=== PATIENT | female | born 1950 | race Caucasian/White ===

== ENCOUNTER 2016-11-29 08:51 | Emergency (ER) | payer OTHER, MEDICARE ==
--- NOTE | 2016-11-29 09:06 | CPEKG ---
Heart Rate: 110 RR Interval: 545 P-R Interval: 148 QRSD Interval: 84 QT Interval: 312 QTC Interval: 423 P [place]: 65 QRS [place]: 35 T Wave [place]: 74 EKG Severity - ABNORMAL ECG - EKG Impression: SINUS TACHYCARDIA EKG Impression: LEFT ATRIAL ABNORMALITY EKG Impression: ST ELEVATION, CONSIDER ANTERIOR INJURY Electronically Signed By: Nanci Willett 29-Nov-2016 15:17:40
[2016-11-29] MEDS ORDERED: ASPIRIN 81 MG CHEWABLE TAB PO ONE (09:07)
[2016-11-29 09:17] LABS: % IMMATURE GRANULYOCYTES 0.4 % (0.0-1.1); ABSOLUTE IMMATURE GRANULOCYTES 0.05 10^3/uL (0.00-0.10); ADD DIFF? NO; ADD MORPH? NO; ADD SCAN? NO; ATYPICAL LYMPHOCYTE FLAG 0 (0-99); FRAGMENT RBC FLAG 0 (0-99); HEMATOCRIT 43.3 % (38.0-47.0); HEMOGLOBIN 15.4 g/dL (12.6-16.3); LEFT SHIFT FLG 10 (0-99); LIPEMIA HEMOLYSIS FLAG 90 (0-99); MEAN CELL HEMOGLOBIN 33.3 pg (27.9-34.1); MEAN CELL HEMOGLOBIN CONCENTR. 35.6 g/dL (32.4-36.7); MEAN CELL VOLUME 93.5 fL (81.5-99.8); MEAN PLATELET VOLUME 10.6 fL (8.7-11.7); PLATELET CLUMPS FLAG 0 (0-99); PLATELET COUNT 234 10^3/uL (150-400); RED BLOOD CELL COUNT 4.63 10^6/uL (4.18-5.33); RED CELL DISTRIBUTION WIDTH 12.1 % (11.5-15.2)
[2016-11-29 09:28] LABS: ANION GAP 15 mEq/L (8-16); CALCIUM 9.9 mg/dL (8.5-10.4); CARBON DIOXIDE 25 mEq/l (22-31); CHLORIDE 103 mEq/L (97-110); CREATININE 0.6 mg/dL (0.6-1.0); GLOMERULAR FILTRATION RATE > 60; GLUCOSE 184 mg/dL (70-100); POTASSIUM 3.8 mEq/L (3.5-5.2); SODIUM 143 mEq/L (134-144)
[2016-11-29 09:39] LABS: TROPONIN I < 0.012 ng/mL (0-0.034)
--- NOTE | 2016-11-29 10:34 | DX ---
Upright PA and Lateral Views of the Chest at 9:26 a.m. Clinical History: 66-year-old female in the ED with chest pain today. Comparison Study: None. Findings: Telemetry monitoring lead lines are noted. The cardiac and mediastinal silhouette is normal . There is no focal infiltrate, atelectasis pleural effusion, peripheral interstitial edema, or pneum othorax. There is a stereotactically-deployed clip in the lateral aspect of the left breast. There is minimal apical pleural thickening. The trachea is midline. There are some degenerative features of t he spine. Impression: No acute abnormality.
--- NOTE | 2016-11-29 11:34 | CPEKG ---
Heart Rate: 94 RR Interval: 638 P-R Interval: 156 QRSD Interval: 82 QT Interval: 336 QTC Interval: 421 P [place]: 59 QRS [place]: 29 T Wave [place]: 63 EKG Severity - ABNORMAL ECG - EKG Impression: SINUS RHYTHM EKG Impression: ST ELEVATION SUGGESTS PERICARDITIS Electronically Signed By: Nanci Willett 29-Nov-2016 15:17:27
[2016-11-29 12:20] VITALS: RESP 15
--- NOTE | 2016-11-29 13:11 | EDPHY ---
H & P Stated Complaint: Chest pain Time Seen by Provider: 11/29/16 09:06 HPI/ROS: CHIEF COMPLAINT: Chest pain HISTORY OF PRESENT ILLNESS: This is a healthy 66-year-old female who arrives by pre visit private vehicle concerned about chest discomfort that has been present for over 8 hours. It is in the mid substernal region, sometimes extending into the left shoulder and lower neck. It is a crampy sensation. The pain is worsened with deep breathing when lying flat. She has not taken any medication for this pain. She denies any recent trauma. No recent travel or immobilization, no calf pain or swelling. She does not take hormone medication.She has not had fever, cough, or shortness of breath. No personal or family history of cardiac disease or VTE. REVIEW OF SYSTEMS: A ten point review of systems was performed and is negative with the exception of the items mentioned in the HPI. Source: Patient Exam Limitations: No limitations - Personal History Current Tetanus/Diphtheria Vaccine: Yes - Medical/Surgical History Other PMH: Hypothyroidism - Social History Smoking Status: Never smoked Drug Use: None Additional Social History: She works in [employer] by a [employer]. - Physical Exam Exam: General Appearance: Alert. Vital signs reviewed. Initial vital signs were a blood pressure of 160/100, heart rate 121, respiratory rate 17, temperature 37.1 and room air pulse ox of 96%. Eyes: Pupils equal and round, no conjunctival injection, no discharge. Anicteric. ENT, Mouth: Mucous membranes are moist, no oropharyngeal erythema or edema. Neck: No lymphadenopathy, supple. No jugular venous distension. Respiratory: Lungs are clear to auscultation; no wheezes, rales, or rhonchi. Cardiovascular: Tachycardic; no murmur, rub, or gallop. Gastrointestinal: Abdomen is soft and nontender, no masses or organomegaly, bowel sounds normal. Skin: Warm and dry, no rashes on exposed skin, normal color. Back: Nontender to palpation over the thoracolumbar spine. No CVAT. Extremities: No lower extremity edema, no calf tenderness or swelling. Neurological: Alert and oriented. Moving all four extremities easily and equally. Psychiatric: Normal affect. Constitutional: Initial Vital Signs Temperature (C) 37.1 C 11/29/16 09:11 Heart Rate 112 H 11/29/16 09:11 Respiratory Rate 17 11/29/16 09:11 Blood Pressure 164/100 H 11/29/16 09:11 O2 Sat (%) 96 11/29/16 09:11 O2 Delivery Mode Room Air Allergies/Adverse Reactions: Penicillins Allergy (Unverified 11/09/15 16:06) Home Medications: Medication Instructions Recorded Levothyroxine 11/29/16 Medical Decision Making - Diagnostics EKG Interpretation: 12 lead EKG is interpreted in Trace master View by emergency department physician. 2nd EKG was obtained. 12 lead EKG is interpreted in Trace master View by emergency department physician. Shows ST elevation consistent with pericarditis. Imaging: Two-view chest x-ray reviewed by me in PACs. No acute pulmonary disease. ED Course/Re-evaluation: 66-year-old with no cardiac risk factors who presents with chest pain that is positional. She has had no recent illnesses. Initial EKG did not show acute ischemic changes. She was noted to be tachycardic and hypertensive on arrival. CBC, chemistries, troponin, EKG and chest x-ray all negative/normal. Her tachycardia subsided. She continued with chest discomfort that was worse when she was lying flat. D-dimer was obtained and normal. TSH was normal. She underwent serial evaluations during her stay in the ED. A 2nd troponin was obtained 2 and 0.5 hours after the 1st and over 10 hours from the onset of her pain. This troponin was normal. A 2nd EKG showed diffuse ST wave elevation consistent with pericarditis. On serial cardiac examinations no rub was heard. I think that this is pericarditis and I am recommending anti-inflammatory medication. We reviewed danger signs that should prompt her to seek immediate medical attention. I recommend close follow up with her PCP. Differential Diagnosis: Chest pain including but not limited to myocardial ischemia, pulmonary embolus, chest wall pain, pleural inflammation, pericarditis, and pulmonary infectious causes. - Data Points Laboratory Results: Laboratory Results 11/29/16 09:05 11/29/16 09:05 Medications Given: Discontinued Medications Aspirin (Aspirin) 324 mg PO EDNOW ONE Stop: 11/29/16 09:08 Last Admin: 11/29/16 09:14 Dose: 324 mg Departure - Departure Disposition: Home, Routine, Self-Care Clinical Impression: Pericarditis Qualifiers: Pericarditis type: unspecified type Chronicity: acute Qualifier Code: (I30.9) Acute pericarditis, unspecified Condition: Good Instructions: Acute Pericarditis (ED) Additional Instructions: Take ibuprofen 600 mg every 6-8 hours. Take this on a regular basis. You should follow up with Dr. Saeed later this week. Call her office today to schedule an appointment. Let the office staff know that you were seen in the emergency department and that you have been diagnosed with pericarditis. I am giving you the name of the pictures editor on duty, Dr. Rashid Henderson. If Dr. Saeed would like you to see a pictures editor you can call his office. You can see any of his partners with this problem. You should return immediately if you have severe persistent chest pain, shortness of breath, feels as if you might faint, or develop fever. Referrals: Nava Saeed MD [Primary Care Provider] - As per Instructions Rashid Henderson MD [Medical Doctor] - As per Instructions
[2016-11-29 13:38] VITALS: BP 127/84; PULSE 96; TEMP 98.2; O2SAT 95
== END 2016-11-29 13:30 | disposition home or self-care (01) ==
DX: I30.9 Acute pericarditis, unspecified (principal)

== ENCOUNTER → 2016-12-06 | Outpatient (CLI) | payer OTHER, MEDICARE ==
[~2016-12-06] MED LIST: IOPAMIDOL (ISOVUE-300) 50 ML VIAL IV ONE
--- NOTE | 2016-12-06 17:01 | CT ---
CT abdomen and pelvis multiphasic. CLINICAL INDICATION: Elevated liver enzymes. COMPARISON: Chest x-ray November 29, 2016. TECHNIQUE: 1.25 mm contiguous helical axial scanning from thoracic inlet through the pubic symphysis after the uneventful administration of oral and IV contrast. The patient received 90 mL of Isovue-300 . Imaging was performed in the arterial, portal venous and delayed phases per the liver protocol. Dos e reduction measures were utilized. FINDINGS: The lung bases are clear. The liver is heterogeneous and mildly low dense with biliary duct al dilatation and gallbladder dilation. It tapers down to a mass in the head of the pancreas. The watson creatic duct is cut off at this level. The mass measures 2.9 x 1.7 x 2.0 cm. The superior mesenteric artery appears clear of this mass. The superior mesenteric vein appears clear. It may be near the vei n on the coronal examination, however, the vein does appear to be clear of invasion. The kidneys and adrenals are unremarkable. Spleen is normal. The splenic vein is patent. Small bowel and colon are unremarkable. Bones exhibit degenerative changes. No lytic or blastic lesions. IMPRESSION: Low-density mass in the head of the pancreas with a duct cut off sign most consistent wit h pancreatic adenocarcinoma. No definite spread beyond the pancreas. Biliary obstruction is also pres ent. Further evaluation with endoscopic US is recommended. Critical results relayed by Dr. Larios to Dr. Saeed today 1540 hours.
== END ==
LOC: FIMAGING 13:54
PROVIDERS: ATTEND Internal Medicine
DX: K86.9 Disease of pancreas, unspecified (principal)
CPT/HCPCS: 74177; Q9967

== ENCOUNTER 2017-07-16 19:35 | Inpatient (IN) | payer OTHER, MEDICARE ==
[2017-07-16] MEDS ORDERED: ACETAMINOPHEN 500 MG TAB PO ONE (20:18)
[2017-07-16] MEDS ORDERED: NS 1,000 ML IV ONE (20:24)
--- NOTE | 2017-07-16 20:28 | EDPHY ---
H & P Time Seen by Provider: 07/16/17 20:18 HPI/ROS: CHIEF COMPLAINT: "I feel crummy" HISTORY OF PRESENT ILLNESS: The patient is a 66-year-old female with a history of pancreatic cancer recently on chemotherapy who presents emergency department with poor appetite and increased nausea. Patient states she has any new food essentially for 3 days due to her poor appetite nausea. She vomited yesterday but no episodes of emesis today. She has had no diarrhea. She took her temperature at home and it was 102. She denies chest pain, cough or shortness of breath. No new abdominal pain. No diarrhea. No skin rash or lesions. REVIEW OF SYSTEMS: My complete review of systems is negative except as mentioned in the HPI. Past Medical/Surgical History: Hypothyroidism, pancreatic cancer Past surgical history: Includes fibroid surgery, stent placement Social history: The patient does not smoke. Smoking Status: Never smoked Physical Exam: 39.4, 126/67, 115, 20, 93% on room air GENERAL: No acute distress, alert. HEENT: Eyes normal to inspection, normal pharynx, no signs of dehydration. NECK: No thyromegaly, no lymphadenopathy, supple. RESPIRATORY: Clear to auscultation bilaterally, no rales, rhonchi or wheezing. CVS: tachycardia with regular rhythm, no rubs, murmurs, or gallops. ABDOMEN: Soft, nontender, nondistended, no organomegaly. Benign BACK: Normal to inspection, no CVA tenderness. SKIN: Normal color, no rash, warm, dry. No pallor. EXTREMITIES: No pedal edema, no calf tenderness, no Homans sign or cords, no joint swelling. NEURO/PSYCH: [Alert and oriented x3, normal mood and affect, normal motor sensory exam. No obvious cranial nerve deficit. Constitutional: Initial Vital Signs Temperature (C) 39.4 C H 07/16/17 19:48 Heart Rate 115 H 07/16/17 19:48 Respiratory Rate 20 07/16/17 19:48 Blood Pressure 126/67 H 07/16/17 19:48 O2 Sat (%) 93 07/16/17 19:48 O2 Delivery Mode Room Air Allergies/Adverse Reactions: Penicillins Allergy (Unverified 07/16/17 19:47) Home Medications: Medication Instructions Recorded Levothyroxine 11/29/16 Medical Decision Making - Diagnostics Imaging Results: Imaging Impressions Chest X-Ray 07/16/17 20:24 Impression: Normal chest x-ray. ED Course/Re-evaluation: In the emergency department I discussed possible etiologies with the patient. I answered all her questions. Her port was accessed. Laboratory studies including blood cultures were obtained. EKG, chest x-ray and urine were obtained. Sinus tachycardia 100. Normal axis. Normal intervals. Left ventricular hypertrophy. No ST or T-wave abnormality. Reviewed the patient's laboratory studies. Patient's LFTs are trending upward. Her white count is 12. Patient is mildly anemic with hematocrit 29. Sodium is low at 129. Potassium 3.3. I rechecked the patient. She is able to provide a urine sample. This was sent. Chest x-ray: No acute disease. I discussed the results with Dr. Kyle from Oncology. I also discussed case with Dr. Cline. The patient is given ertapenem. This will cover for possible GI source. Differential Diagnosis: My differential includes but is not limited to bacteremia, sepsis, pneumonia, neutropenic fever - Data Points Laboratory Results: Laboratory Results 07/16/17 20:23 07/16/17 20:10 07/16/17 07/16/17 07/16/17 21:30 20:23 20:10 WBC 12.11 10^3/uL H 10^3/uL (3.80-9.50) RBC 3.29 10^6/uL L 10^6/uL (4.18-5.33) Hgb 10.3 g/dL L g/dL (12.6-16.3) Hct 29.3 % L % (38.0-47.0) MCV 89.1 fL fL (81.5-99.8) MCH 31.3 pg pg (27.9-34.1) MCHC 35.2 g/dL g/dL (32.4-36.7) RDW 15.9 % H % (11.5-15.2) Plt Count 257 10^3/uL 10^3/uL (150-400) MPV 9.5 fL fL (8.7-11.7) Neut % (Auto) 77.8 % H % (39.3-74.2) Lymph % (Auto) 6.3 % L % (15.0-45.0) [place] % (Auto) 14.9 % H % (4.5-13.0) Eos % (Auto) 0.0 % L % (0.6-7.6) Baso % (Auto) 0.3 % % (0.3-1.7) Nucleat RBC Rel Count 0.0 % % (0.0-0.2) Absolute Neuts (auto) 9.41 10^3/uL H 10^3/uL (1.70-6.50) Absolute Lymphs (auto) 0.76 10^3/uL L 10^3/uL (1.00-3.00) Absolute Monos (auto) 1.81 10^3/uL H 10^3/uL (0.30-0.80) Absolute Eos (auto) 0.00 10^3/uL L 10^3/uL (0.03-0.40) Absolute Basos (auto) 0.04 10^3/uL 10^3/uL (0.02-0.10) Absolute Nucleated RBC 0.00 10^3/uL 10^3/uL (0-0.01) Immature Gran % 0.7 % % (0.0-1.1) Immature Gran # 0.09 10^3/uL 10^3/uL (0.00-0.10) PT INR APTT VBG Lactic Acid Sodium 129 mEq/L L mEq/L (134-144) Potassium 3.3 mEq/L L mEq/L (3.5-5.2) Chloride 94 mEq/L L mEq/L (97-110) Carbon Dioxide 23 mEq/l mEq/l (22-31) Anion Gap 12 mEq/L mEq/L (8-16) BUN 7 mg/dL mg/dL (7-23) Creatinine 0.6 mg/dL mg/dL (0.6-1.0) Estimated GFR > 60 Glucose 155 mg/dL H mg/dL (70-100) Calcium 8.4 mg/dL L mg/dL (8.5-10.4) Total Bilirubin 3.9 mg/dL H mg/dL (0.1-1.4) Conjugated Bilirubin 2.5 mg/dL H mg/dL (0.0-0.5) Unconjugated Bilirubin 1.4 mg/dL H mg/dL (0.0-1.1) AST 186 IU/L H IU/L (14-46) ALT 171 IU/L H IU/L (9-52) Alkaline Phosphatase 568 IU/L H IU/L (38-126) Troponin I < 0.012 ng/mL ng/mL (0.000-0.034) Total Protein 6.0 g/dL L g/dL (6.3-8.2) Albumin 3.2 g/dL L g/dL (3.5-5.0) Lipase 26 IU/L IU/L (23-300) Urine Color YELLOW Urine Appearance CLOUDY Urine pH 7.0 (5.0-7.5) Ur Specific [place] <= 1.005 (1.002-1.030) Urine Protein NEGATIVE (NEGATIVE) Urine Ketones NEGATIVE (NEGATIVE) Urine Blood TRACE-INTACT H (NEGATIVE) Urine Nitrate NEGATIVE (NEGATIVE) Urine Bilirubin NEGATIVE (NEGATIVE) Urine Urobilinogen 2.0 EU H EU (0.2-1.0) Ur Leukocyte Esterase NEGATIVE (NEGATIVE) Urine RBC Pending Urine WBC Pending Ur Epithelial Cells Pending Urine Glucose NEGATIVE (NEGATIVE) 07/16/17 07/16/17 20:10 20:10 WBC RBC Hgb Hct MCV MCH MCHC RDW Plt Count MPV Neut % (Auto) Lymph % (Auto) [place] % (Auto) Eos % (Auto) Baso % (Auto) Nucleat RBC Rel Count Absolute Neuts (auto) Absolute Lymphs (auto) Absolute Monos (auto) Absolute Eos (auto) Absolute Basos (auto) Absolute Nucleated RBC Immature Gran % Immature Gran # PT 17.1 SEC H SEC (12.0-15.0) INR 1.40 H (0.83-1.16) APTT 30.8 SEC SEC (23.0-38.0) VBG Lactic Acid 0.9 mmol/L mmol/L (0.7-2.1) Sodium Potassium Chloride Carbon Dioxide Anion Gap BUN Creatinine Estimated GFR Glucose Calcium Total Bilirubin Conjugated Bilirubin Unconjugated Bilirubin AST ALT Alkaline Phosphatase Troponin I Total Protein Albumin Lipase Urine Color Urine Appearance Urine pH Ur Specific [place] Urine Protein Urine Ketones Urine Blood Urine Nitrate Urine Bilirubin Urine Urobilinogen Ur Leukocyte Esterase Urine RBC Urine WBC Ur Epithelial Cells Urine Glucose Medications Given: Discontinued Medications Acetaminophen (Tylenol) 1,000 mg PO EDNOW ONE Stop: 07/16/17 20:19 Last Admin: 07/16/17 20:22 Dose: 1,000 mg Sodium Chloride (Ns) 1,000 mls @ 0 mls/hr IV ONCE ONE; Wide Open PRN Reason: Protocol Stop: 07/16/17 20:25 Last Admin: 07/16/17 20:26 Dose: 1,000 mls Departure - Departure Disposition: [facility] In[facility] Acute Clinical Impression: Fever Qualifiers: Fever type: unspecified Qualified Code(s): R50.9 - Fever, unspecified Condition: Good
[2017-07-16 20:33] LABS: % IMMATURE GRANULYOCYTES 0.7 % (0.0-1.1); ABSOLUTE IMMATURE GRANULOCYTES 0.09 10^3/uL (0.00-0.10); ADD DIFF? NO; ADD MORPH? NO; ADD SCAN? NO; ATYPICAL LYMPHOCYTE FLAG 0 (0-99); FRAGMENT RBC FLAG 0 (0-99); HEMATOCRIT 29.3 % (38.0-47.0); HEMOGLOBIN 10.3 g/dL (12.6-16.3); LEFT SHIFT FLG 20 (0-99); LIPEMIA HEMOLYSIS FLAG 90 (0-99); MEAN CELL HEMOGLOBIN 31.3 pg (27.9-34.1); MEAN CELL HEMOGLOBIN CONCENTR. 35.2 g/dL (32.4-36.7); MEAN CELL VOLUME 89.1 fL (81.5-99.8); MEAN PLATELET VOLUME 9.5 fL (8.7-11.7); PLATELET CLUMPS FLAG 0 (0-99); PLATELET COUNT 257 10^3/uL (150-400); RED BLOOD CELL COUNT 3.29 10^6/uL (4.18-5.33); RED CELL DISTRIBUTION WIDTH 15.9 % (11.5-15.2)
--- NOTE | 2017-07-16 20:37 | CPEKG ---
Heart Rate: 100 RR Interval: 600 P-R Interval: 148 QRSD Interval: 70 QT Interval: 336 QTC Interval: 434 P [place]: 41 QRS [place]: 19 T Wave [place]: 3 EKG Severity - ABNORMAL ECG - EKG Impression: SINUS TACHYCARDIA EKG Impression: CONSIDER LEFT VENTRICULAR HYPERTROPHY Electronically Signed By: Sugar Landry 16-Jul-2017 22:59:24
[2017-07-16 20:43] LABS: APTT 30.8 SEC (23.0-38.0); INR 1.4 (0.83-1.16); PROTIME(PATIENT) 17.1 SEC (12.0-15.0)
[2017-07-16 20:47] LABS: ALANINE AMINOTRANSFERASE 171 IU/L (9-52); ALBUMIN 3.2 g/dL (3.5-5.0); ALKALINE PHOSPHATASE 568 IU/L (38-126); ANION GAP 12 mEq/L (8-16); ASPARTATE AMINOTRANSFERASE 186 IU/L (14-46); BILIRUBIN,TOTAL 3.9 mg/dL (0.1-1.4); BILIRUBIN-CONJUGATED 2.5 mg/dL (0.0-0.5); BILIRUBIN-UNCONJUGATED 1.4 mg/dL (0.0-1.1); CALCIUM 8.4 mg/dL (8.5-10.4); CARBON DIOXIDE 23 mEq/l (22-31); CHLORIDE 94 mEq/L (97-110); CREATININE 0.6 mg/dL (0.6-1.0); GLOMERULAR FILTRATION RATE > 60; GLUCOSE 155 mg/dL (70-100); POTASSIUM 3.3 mEq/L (3.5-5.2); SODIUM 129 mEq/L (134-144)
[2017-07-16 20:58] LABS: TROPONIN I < 0.012 ng/mL (0.000-0.034)
[2017-07-16] MEDS ORDERED: ERTAPENEM 1 GM in NS 100 ML IV ONE (21:55)
[2017-07-16 22:49] LABS: COLOR YELLOW; LEUKOCYTE ESTERASE,URINE NEGATIVE (NEGATIVE); NITRITE,URINE NEGATIVE (NEGATIVE)
[2017-07-16] MEDS ORDERED: ACETAMINOPHEN 325 MG TAB PO PRN (23:22)
[2017-07-16] MEDS ORDERED: ONDANSETRON 4 MG/2 ML VIAL IVP PRN (23:22)
[2017-07-16] MEDS ORDERED: ONDANSETRON DISINTEGRATING 4 MG TAB PO PRN (23:22)
[2017-07-16] MEDS ORDERED: PROTOCOL POTASSIUM 1 DOSE MISC PRN (23:31)
[2017-07-17] MEDS ORDERED: VANCOMYCIN HCL/NORMAL SALINE 250 ML IV SCH
--- NOTE | 2017-07-17 00:22 | GHP ---
[f rep st] HISTORY AND PHYSICAL DATE OF ADMISSION: 07/16/2017 CHIEF COMPLAINT: Not feeling well. HISTORY OF PRESENT ILLNESS: A 66-year-old female with a history of pancreatic cancer actively recei ving chemotherapy, last dose 2 weeks ago, who presents with fever and an overall feeling of not bein g well. Patient reports measuring fever at home with associated nausea and vomiting. Patient was f eeling fatigued and overall not her normal self. She denies any shortness of breath. Has had a dry cough, but that has not been changed recently. Denies any myalgias or arthralgias. Denies diarrhe a. Denies dysuria. Denies hematuria, bloody stools. She does believe that her abdomen has been a bit more distended than usual. Denies any lower extremity edema. Denies any vision changes, dizzin ess, or dysphagia. Patient has a port, which was last accessed early in June. Denies any redness , tenderness at her port site since her last chemotherapy. Denies any abdominal pain, and denies he matemesis. PAST MEDICAL HISTORY: 1. Pancreatic cancer with pancreatic stent. 2. Hypothyroidism. SOCIAL HISTORY: Negative for tobacco, alcohol, or illicit drugs. FAMILY HISTORY: Positive for a great grandfather with pancreatic cancer. ADVANCED DIRECTIVES: Patient is full cor, full tube. Her would be her medical decision airam er. REVIEW OF SYSTEMS: A 10-point review of systems is negative with the exception of that reported in the HPI. PHYSICAL EXAMINATION: VITAL SIGNS: Blood pressure 126/67, heart rate 115, respiratory rate 20, sat urating 93% on room air, 39.4. GENERAL: This is a thin-appearing female in no acute distress. JENN NT: Notable for dry mucous membranes. Eye exam is negative for any icterus. CARDIAC: Patient is regular rate and rhythm. PULMONARY: She is clear to auscultation bilaterally. GASTROINTESTINAL: Abdomen is soft, mildly distended. Positive bowel sounds. She is nontender in all 4 quadrants. MU SCULOSKELETAL: Negative for any lower extremity edema. SKIN: Negative for any rashes. NEUROLOGIC : She is alert and oriented x3. PSYCHIATRIC: She is pleasant and cooperative on interview and exa mination. DATA: White count is 12.1. Sodium 129, potassium 3.3, alkaline phosphatase 568, which is markedly above last check. AST 186, ALT 171, both elevated from last check. Urinalysis shows 1-3 reds, 1-3 whites. Chest x-ray, which I personally reviewed and interpreted, shows no acute infiltrates or edema. ASSESSMENT AND PLAN: This is a 66-year-old female with pancreatic cancer presenting with fever. 1. Acute fever. Patient is an active chemotherapy patient and at risk for complicated infections. Port was most recently access 2 weeks ago. Most likely source of infection, based on symptoms and history, would be intraabdominal, particularly with the increase in her liver function tests. Query whether her stent is working appropriately. Agree with empiric GI coverage with ertapenem. Will a dd vancomycin until cultures returned negative for bloodborne catheter-related infection. Will disc uss imaging with Oncology tomorrow. Patient is not anxious for additional CT scans or ERCPs if avoi dable. Encouraged by negative urinalysis and chest x-ray imaging. 2. Sepsis. Patient is presenting with leukocytosis, tachycardia, and fever. Again, empirically tr eating with broad-spectrum antibiotics, vancomycin and ertapenem. Blood cultures are already in the microbiology lab. No need for urine cultures. Can follow. If negative x24 hours, can comfortably stop vancomycin and discuss imaging for duration of ertapenem. 3. Tachycardia. Will fluid resuscitate as suspect volume down and follow. 4. Hypovolemic hyponatremia. Will fluid resuscitate and follow. 5. Hypokalemia, suspect related to nausea and vomiting. Will place on potassium protocol. 6. Prophylaxis with Lovenox. DIET: Regular. DISPOSITION: Expecting greater than 2 midnights as the patient is presenting with sepsis. Presumed source is GI in an immunosuppressive chemotherapy patient. I have discussed the case with the [facility] physician. Patient will be triaged to the medical surgical floor for care. /[id number]/MODL
[2017-07-17] MEDS: NS 1,000 ML IV SCH ×3 (01:42→23:41)
[2017-07-17 04:35] LABS: % IMMATURE GRANULYOCYTES 0.9 % (0.0-1.1); ADD DIFF? NO; ADD MORPH? NO; ADD SCAN? NO; ATYPICAL LYMPHOCYTE FLAG 0 (0-99); FRAGMENT RBC FLAG 0 (0-99); HEMATOCRIT 28.4 % (38.0-47.0); HEMOGLOBIN 9.8 g/dL (12.6-16.3); LEFT SHIFT FLG 20 (0-99); LIPEMIA HEMOLYSIS FLAG 90 (0-99); MEAN CELL HEMOGLOBIN 31.2 pg (27.9-34.1); MEAN CELL HEMOGLOBIN CONCENTR. 34.5 g/dL (32.4-36.7); MEAN CELL VOLUME 90.4 fL (81.5-99.8); MEAN PLATELET VOLUME 9.3 fL (8.7-11.7); PLATELET CLUMPS FLAG 0 (0-99); PLATELET COUNT 239 10^3/uL (150-400); RED BLOOD CELL COUNT 3.14 10^6/uL (4.18-5.33); RED CELL DISTRIBUTION WIDTH 16.2 % (11.5-15.2)
[2017-07-17 04:42] LABS: ALANINE AMINOTRANSFERASE 126 IU/L (9-52); ALBUMIN 2.5 g/dL (3.5-5.0); ALKALINE PHOSPHATASE 382 IU/L (38-126); ANION GAP 9 mEq/L (8-16); ASPARTATE AMINOTRANSFERASE 93 IU/L (14-46); BILIRUBIN,TOTAL 3.2 mg/dL (0.1-1.4); BILIRUBIN-CONJUGATED 2.3 mg/dL (0.0-0.5); BILIRUBIN-UNCONJUGATED 0.9 mg/dL (0.0-1.1); CALCIUM 7.9 mg/dL (8.5-10.4); CARBON DIOXIDE 24 mEq/l (22-31); CHLORIDE 102 mEq/L (97-110); CREATININE 0.4 mg/dL (0.6-1.0); GLOMERULAR FILTRATION RATE > 60; GLUCOSE 132 mg/dL (70-100); POTASSIUM 3.3 mEq/L (3.5-5.2); SODIUM 135 mEq/L (134-144)
--- NOTE | 2017-07-17 08:24 | HOSPPROG ---
Hospitalist Progress Note Assessment/Plan: Sepsis: fever, leukocytosis. Suspect abd source with stenting, elevated LFTs. Port in place; blood cultures pending. Chronic epigastric abd pain. Will start with abd U/S. -cont IV abx for now #Chronic abd pain: US pending #Tachycardia: resolved with fluids #Leukocytosis: negative UA, CXR. Blood cultures #Pancreatic cancer: last chemo Jun 20. Appreciate Dr. Dickerson's input #Hypokalemia: on protocol #Diet: ADAT #DVT ppx: Lovenox Disp: warrants inpt admission with sepsis and requires IV abx Subjective: feeling better. Ate pancakes Objective: Vital Signs Temp Pulse Resp BP Pulse Ox 36.5 C 76 16 113/73 95 07/17/17 07:58 07/17/17 07:58 07/17/17 07:58 07/17/17 07:58 07/17/17 07:58 Laboratory Results 07/17/17 04:17 07/17/17 04:17 07/16/17 07/17/17 07/18/17 05:59 05:59 05:59 Intake Total 2031 Balance 2031 PT 17.1 SEC (12.0-15.0) H 07/16/17 20:10 INR 1.40 (0.83-1.16) H 07/16/17 20:10 - Physical Exam Constitutional: other (thin) Eyes: PERRL Ears, Nose, Mouth, Throat: moist mucous membranes Cardiovascular: regular rate and rhythym, no murmur, rub, or gallop Respiratory: no respiratory distress, no rales or rhonchi Gastrointestinal: normoactive bowel sounds, other (epigastric TTP with voluntary guarding) Skin: warm Musculoskeletal: full muscle strength Neurologic: AAOx3, CN II-XII Intact ICD10 Worksheet Patient Problems: Problems Problem Status Onset Fever Acute
[2017-07-17] MEDS: ERTAPENEM 1 GM in NS 100 ML IV SCH (08:58)
[2017-07-17] MEDS: ENOXAPARIN 40 MG/0.4 ML SYR SC SCH (08:59)
[2017-07-17] MEDS: POTASSIUM Cl (KCl) 100 ML IV SCH ×3 (09:50→12:00)
[2017-07-17] MEDS ORDERED: PROCHLORPERAZINE MALEATE 10 MG TAB PO PRN (13:10)
[2017-07-17] MEDS ORDERED: clonazePAM 0.5 MG TAB PO PRN (13:10)
[2017-07-17] MEDS ORDERED: ONDANSETRON DISINTEGRATING 4 MG TAB PO PRN (13:10)
--- NOTE | 2017-07-17 13:44 | GCON ---
[f rep st] CONSULTATION HEMATOLOGY/ONCOLOGY CONSULTATION REASON FOR CONSULTATION: Fever and pancreatic cancer. RECOMMENDATIONS: 1. Continue IV antibiotics. If cultures are negative, consider a curative course of antibiotics for presumptive diagnosis of ascending cholangitis. 2. Defer chemotherapy until she has recovered. EXECUTIVE SUMMARY: The patient is a very pleasant 66-year-old woman who has been in good health all of her life, who was diagnosed by Dr. Nava Saeed as having cancer of the pancreas. She presented with jaundice in November 2016. She was referred to [facility] for a potential Whipple procedure, but underwent neoadjuvant chemotherapy with gem/Abraxane because she was borderline resectable. She then had, I believe, approximately 4 courses, and then underwent stereotactic radiation over 5 days in March. Following the radiation about a month later, she underwent a restaging CT scan. She was found to have an elevated CA-19-9 and new liver metastases. At that point, she saw Dr. Aldana, who recommended CAPOX chemotherapy, and she was due to start that in April and May time frame, but she returned to [place] to receive her chemotherapy as it was much more convenient. She started CAPOX on May 31, and capecitabine was given at 3000 mg per day and oxaliplatin at 125 mg/m2. Her treatment was complicated after 2 cycles, and the second cycle was on June 21 by hand-foot syndrome grade 3. She was waiting and struggling for recovery, and her subsequent treatment was delayed. She was seen on July 12 and had a white count of 9900, hemoglobin 11.4, and platelet count of 268, and the plan was to defer the treatment for 1 week, when she came in yesterday complaining of fever to 39 degrees. She has a metal stent in her common bile duct, but the patient did not have any rigors or chills, just a fever. Cultures, at this point, are negative. Her white count on admission was adequate at 12,000, hemoglobin 10.3, and platelet count 257. She was placed on IV vancomycin and ertapenem, and the patient appears significantly improved, and her temperature has dropped from 39.0 to 36.5. The patient now presents for a discussion. She has no dysuria or hematuria. She denies any cough or shortness of breath. ALLERGIES: The patient has an allergy to penicillin. MEDICATIONS: Prior to admission were capecitabine, vaginal estrogen, levothyroxine 125, Prilosec OTC. 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 FAMILY HISTORY: Reveals her paternal grandfather of pancreatic cancer in his 50s, and her father of AML at 72. PAST SURGICAL HISTORY: The patient's prior surgery includes a myomectomy. REVIEW OF SYSTEMS: Shows that she is asthenic, but her weight is down maybe only 5 pounds from what it should be. She denies any headache, sore throat, earache, chest pain, shortness of breath, cough. She has had some mild nausea, and she vomited before she came into the hospital, without hematochezia or melena. There is no diarrhea or dysuria or hematuria. There is no abdominal pain. There is no skin rashes and no perianal pain. PHYSICAL EXAMINATION: GENERAL: The clinical exam reveals an asthenic woman, looking her stated age, without scleral icterus. She is alert and oriented and very articulate. She has no evidence of jaundice. Throat is free of exudates. NECK: Supple. There is no adenopathy or goiter. LUNGS: Clear to P and A. CV: Regular. S1 is normal. S2 is normally split. No S3, S4, or murmur. ABDOMEN: Soft, nontender. No hepatosplenomegaly is detected. No abdominal masses are palpated. EXTREMITIES: There is no extremity edema or calf tenderness. NEUROLOGICAL: This patient is intact. She has grade 1 hand-foot syndrome today. ASSESSMENT: 1. Febrile episode, probably from ascending cholangitis. 2. Pancreatic cancer, stage IV, with liver metastasis. 3. The patient is responding to CAPOX, with a drop of her CA-19-9 from about 1942, down to 581 in the past week. I recommended continuing the IV antibiotics for at least 2 weeks, assuming she is culture negative, and then the questions will be whether she should be getting any prophylactic antibiotics, and also when is it safe to resume her chemotherapy. When she does resume chemo, she never had any neutropenia with this episode, and there is a dose reduction planned for the hand-foot syndrome to 2 g a day. PLAN: As noted above. /[id number]/MODL MTDD
[2017-07-18] MEDS ORDERED: VANCOMYCIN 750 MG in D5W 150 ML IV SCH
[2017-07-18 05:36] LABS: POTASSIUM 3.5 mEq/L (3.5-5.2)
[2017-07-18 05:53] VITALS: O2SAT 96
[2017-07-18] MEDS ORDERED: LEVOTHYROXINE 125 MCG TAB PO SCH (06:00)
[2017-07-18] MEDS: NS 1,000 ML IV SCH (07:12)
--- NOTE | 2017-07-18 07:35 | SOAPPROG ---
SOAP Progress Note Assessment/Plan: Assessment: 1. Fever: Possible ascending cholangitis. Fever resolved. BC neg x 2. Currently on Vanc and Ertapenem. I would continue those for another 1-3 days until all the cultures are back and the LFTs are better. However, if she wishes to go she will probably be ok i told her. I would recheck her in 2 days in the office. 2. Metastatic pancreatic cancer: Currently on CapOx complicated by HFS. 3. Abn LFTs: the U/S did not reveal any obstruction. the enzymes are improving. the Bili is down to 3.2. Plan: Conitnue IVabx or send home on oral abx. 07/18/17 07:34 07/18/17 07:37 07/18/17 07:58 Subjective: Cierra is feeling better. She is anxious to go home. Objective: Vital Signs Temp Pulse Resp BP Pulse Ox 36.9 C 81 14 132/79 H 96 07/18/17 05:52 07/18/17 05:52 07/18/17 05:52 07/18/17 05:52 07/18/17 05:52 Laboratory Results 07/17/17 04:17 07/18/17 05:05 07/17/17 07/18/17 07/19/17 05:59 05:59 05:59 Intake Total 2 2566 Balance 2 2566 PT 17.1 SEC (12.0-15.0) H 07/16/17 20:10 INR 1.40 (0.83-1.16) H 07/16/17 20:10 - Time Spent With Patient Time Spent With Patient: 40 minutes with the patient and her ICD10 Worksheet Patient Problems: Problems Problem Status Onset Fever Acute
[2017-07-18] MEDS ORDERED: UREA 40% CREAM TP SCH (09:00)
[2017-07-18] MEDS: ERTAPENEM 1 GM in NS 100 ML IV SCH (09:03)
[2017-07-18] MEDS: ENOXAPARIN 40 MG/0.4 ML SYR SC SCH (09:03)
--- NOTE | 2017-07-18 09:04 | HOSPPROG ---
Hospitalist Progress Note Assessment/Plan: Sepsis: resolved. Due to acalculous cholecystitis. Blood cxs negative. Transition to -cont IV abx for now #Chronic abd pain: GB thickening with sludge #Tachycardia: resolved with fluids #Leukocytosis: negative UA, CXR. Blood cultures #Hyperbilrubinemia: suspected cholecystitis. Trending down. Repeat pending #Pancreatic cancer: last chemo June 20 #Hypokalemia: on protocol #Diet: ADAT #DVT ppx: Lovenox Disp: DC today Subjective: feeling better. Ate breakfast without issue Objective: Vital Signs Temp Pulse Resp BP Pulse Ox 36.9 C 81 14 132/79 H 96 07/18/17 05:52 07/18/17 05:52 07/18/17 05:52 07/18/17 05:52 07/18/17 05:52 Laboratory Results 07/17/17 04:17 07/18/17 05:05 07/17/17 07/18/17 07/19/17 05:59 05:59 05:59 Intake Total 2 2566 Balance 2032 2566 PT 17.1 SEC (12.0-15.0) H 07/16/17 20:10 INR 1.40 (0.83-1.16) H 07/16/17 20:10 - Physical Exam Constitutional: other (thin) Eyes: icteric sclera Ears, Nose, Mouth, Throat: moist mucous membranes, hearing normal Cardiovascular: regular rate and rhythym, no murmur, rub, or gallop Respiratory: no respiratory distress, no rales or rhonchi Gastrointestinal: normoactive bowel sounds, distension Genitourinary: no bladder fullness Skin: warm Musculoskeletal: full muscle strength Neurologic: AAOx3, CN II-XII Intact Psychiatric: interacting appropriately ICD10 Worksheet Patient Problems: Problems Problem Status Onset Fever Acute
[2017-07-18 09:22] LABS: HEMATOCRIT 30.3 % (38.0-47.0); HEMOGLOBIN 10.5 g/dL (12.6-16.3); MEAN CELL HEMOGLOBIN 31.3 pg (27.9-34.1); MEAN CELL HEMOGLOBIN CONCENTR. 34.7 g/dL (32.4-36.7); MEAN CELL VOLUME 90.4 fL (81.5-99.8); RED BLOOD CELL COUNT 3.35 10^6/uL (4.18-5.33); RED CELL DISTRIBUTION WIDTH 16.4 % (11.5-15.2)
[2017-07-18 09:50] VITALS: BP 123/74; PULSE 79; RESP 16; TEMP 97.8
[2017-07-18 09:50] LABS: ALANINE AMINOTRANSFERASE 93 IU/L (9-52); ALBUMIN 2.8 g/dL (3.5-5.0); ALKALINE PHOSPHATASE 341 IU/L (38-126); ANION GAP 10 mEq/L (8-16); ASPARTATE AMINOTRANSFERASE 37 IU/L (14-46); BILIRUBIN,TOTAL 0.9 mg/dL (0.1-1.4); CALCIUM 8.2 mg/dL (8.5-10.4); CARBON DIOXIDE 23 mEq/l (22-31); CHLORIDE 102 mEq/L (97-110); CREATININE 0.4 mg/dL (0.6-1.0); GLOMERULAR FILTRATION RATE > 60; GLUCOSE 216 mg/dL (70-100); POTASSIUM 3.6 mEq/L (3.5-5.2); SODIUM 135 mEq/L (134-144); TOTAL PROTEIN 5.5 g/dL (6.3-8.2)
[2017-07-18] MEDS ORDERED: POTASSIUM CL 10 MEQ TAB PO ONE (10:30)
--- NOTE | 2017-07-18 13:22 | GDS ---
[f rep st] DISCHARGE SUMMARY DISCHARGE DIAGNOSES: 1. Sepsis. 2. Chronic abdominal pain. 3. Acute acalculous cholecystitis. 4. Tachycardia. 5. Leukocytosis. 6. Hyperbilirubinemia. 7. Pancreatic cancer. 8. Hypokalemia. HISTORY OF PRESENT ILLNESS: A pleasant 66-year-old female with history of pancreatic cancer and stents, currently on chemotherapy, last dose June 20, who presented with fevers and overall feeling of not being well. She also complained of nausea, vomiting, and feeling very fatigued. Denied any shortness of breath. Had a dry cough, but that is not new. No diarrhea or dysuria. Feels that her abdomen is a little bit more distended than usual. HOSPITAL COURSE BY PROBLEM: 1. Sepsis: Initially at time of admission, she was febrile with elevated white count to 12 with tachycardia. Suspected source was GI given a pancreatic stent. Patient had ultrasound done that showed acalculous cholecystitis. Blood cultures have remained negative, and she is feeling well. White count has resolved, and LFTs are improving. I did speak with Surgery, and at this time, they agree it would be reasonable to treat with antibiotics but would have to consider surgical intervention if it happened again. She will be discharged on Flagyl, Levaquin, given penicillin allergy, for a total of 10 days on antibiotics. 2. Leukocytosis: Resolved with IV antibiotics. 3. Tachycardia: Resolved with IV fluids. 4. Metastatic pancreatic cancer: Patient is followed closely by Dr. Bender, has an appointment on 07/20/2017. 5. Hyperbilirubinemia secondary to acute illness: Bilirubin is now normalized. 6. Hypokalemia: Resolved. DISPOSITION: Patient is stable for discharge. NEW MEDICATIONS: 1. Flagyl 500 mg t.i.d. 2. Levaquin 750 mg every other day. FOLLOWUP: Dr. Bender, 07/20/2017. /[id number]/MODL MTDD
--- NOTE | 2017-07-18 14:44 | ASMTCMCOM ---
CM Note CM Note Notes: Pt discharged home with family with no additional C/M needs apparent at this time. Date Signed: 07/18/2017 02:43 PM Electronically Signed By:Ambar Veliz
== END 2017-07-18 13:15 | disposition home or self-care (01) | DRG 872 ==
LOC: OBSVTOIN 21:56 → F1N 22:48
PROVIDERS: ADMIT Internal Medicine; ATTEND Internal Medicine
CPT/HCPCS: J1335; J1642; J1650; J3370

== ENCOUNTER 2017-11-03 12:59 | Inpatient (IN) | payer OTHER, MEDICARE ==
--- NOTE | 2017-11-03 13:39 | EDPHY ---
H & P Stated Complaint: Fever Time Seen by Provider: 11/03/17 13:08 HPI/ROS: CHIEF COMPLAINT: Fever, fatigue HISTORY OF PRESENT ILLNESS: The patient presents the ED with several weeks of increasing fever and fatigue. The patient has a history of pancreatic cancer. She is currently undergoing chemotherapy. The patient was seen at her primary care provider's office and referred to the ED for further evaluation. The patient does complain of some increasing abdominal fullness. She denies specific complaints of pain, jaundice, dysuria or acute cough. She did have some loose stool earlier today. The patient denies fall, headache, numbness, weakness or neck pain. The patient was admitted with similar symptoms in June of this year. At that point time she had acalculous cholecystitis. She had improvement with IV antibiotics and was discharged home with oral antibiotics. Her blood cultures at that point time were negative. The patient did not undergo cholecystectomy. There was some consideration of performing this procedure in the event of recurrent symptoms. REVIEW OF SYSTEMS: A comprehensive 10 point review of systems is otherwise negative aside from elements mentioned in the history of present illness. Source: Patient Exam Limitations: No limitations - Personal History Current Tetanus/Diphtheria Vaccine: Yes Current Tetanus Diphtheria and Acellular Pertussis (TDAP): Yes - Medical/Surgical History Hx Asthma: No Hx Chronic Respiratory Disease: No Hx Diabetes: No Hx Cardiac Disease: No Hx Renal Disease: No Hx Cirrhosis: No Hx Alcoholism: No Hx HIV/AIDS: No Hx Splenectomy or Spleen Trauma: No Other PMH: Hypothyroidism. pancreatic CA, on chemo - Social History Smoking Status: Never smoked - Physical Exam Exam: General Appearance: Alert, no distress Eyes: Pupils equal and round no pallor or injection ENT, Mouth: Mucous membranes moist Respiratory: There are no retractions, lungs are clear to auscultation Cardiovascular: Regular rate and rhythm Gastrointestinal: Tenderness to palpation right upper quadrant Neurological: A&O, normal motor function, normal sensory exam, normal cranial nerves Skin: Warm and dry, no rashes Musculoskeletal: Neck is supple nontender Extremities: symmetrical, full range of motion Constitutional: Initial Vital Signs Temperature (C) 37.7 C 11/03/17 13:01 Heart Rate 102 H 11/03/17 13:01 Respiratory Rate 18 11/03/17 13:01 Blood Pressure 134/80 H 11/03/17 13:01 O2 Sat (%) 96 11/03/17 13:01 O2 Delivery Mode Room Air Allergies/Adverse Reactions: Penicillins Allergy (Verified 07/17/17 08:20) Rash Home Medications: Medication Instructions Recorded Levothyroxine [Synthroid 125 mcg 125 mcg PO DAILY06 11/29/16 (*)] Ondansetron Odt [Zofran Odt 4 mg 8 mg PO DAILY PRN 07/17/17 (*)] Prochlorperazine Maleate 10 mg PO DAILY PRN 07/17/17 [Compazine 10mg (*)] Urea 40% [Urea Cream (*)] 1 silvio TP DAILY 07/17/17 clonazePAM [Klonopin (*)] 0.5 mg PO DAILY PRN 07/17/17 Medical Decision Making ED Course/Re-evaluation: The patient presents to the ED with malaise and fever over the past several days. She reports a T-max of 101.7. The patient had blood cultures x2 obtained. The patient's initial venous lactate is reassuring. I reviewed her past medical records. She is not neutropenic. She does have a slight transaminitis and elevated alkaline phosphatase. A right upper quadrant ultrasound has been ordered. I do feel the patient should be admitted to the hospital for further evaluation and management. Consultation is made with Dr. Gray from the hospitalist service who will admit the patient. Differential Diagnosis: Differential diagnosis considered includes sepsis, acalculous cholecystitis, neutropenic fever, cholangitis - Data Points Laboratory Results: Laboratory Results 11/03/17 13:50 11/03/17 13:50 11/03/17 11/03/17 11/03/17 13:50 13:50 13:50 WBC 7.91 10^3/uL 10^3/uL (3.80-9.50) RBC 3.22 10^6/uL L 10^6/uL (4.18-5.33) Hgb 11.7 g/dL L g/dL (12.6-16.3) Hct 31.6 % L % (38.0-47.0) MCV 98.1 fL fL (81.5-99.8) MCH 36.3 pg H pg (27.9-34.1) MCHC 37.0 g/dL H g/dL (32.4-36.7) RDW 16.9 % H % (11.5-15.2) Plt Count 113 10^3/uL L 10^3/uL (150-400) MPV 10.8 fL fL (8.7-11.7) Neut % (Auto) 69.3 % % (39.3-74.2) Lymph % (Auto) 10.6 % L % (15.0-45.0) Randall % (Auto) 19.5 % H % (4.5-13.0) Eos % (Auto) 0.1 % L % (0.6-7.6) Baso % (Auto) 0.1 % L % (0.3-1.7) Nucleat RBC Rel Count 0.0 % % (0.0-0.2) Absolute Neuts (auto) 5.48 10^3/uL 10^3/uL (1.70-6.50) Absolute Lymphs (auto) 0.84 10^3/uL L 10^3/uL (1.00-3.00) Absolute Monos (auto) 1.54 10^3/uL H 10^3/uL (0.30-0.80) Absolute Eos (auto) 0.01 10^3/uL L 10^3/uL (0.03-0.40) Absolute Basos (auto) 0.01 10^3/uL L 10^3/uL (0.02-0.10) Absolute Nucleated RBC 0.00 10^3/uL 10^3/uL (0-0.01) Immature Gran % 0.4 % % (0.0-1.1) Immature Gran # 0.03 10^3/uL 10^3/uL (0.00-0.10) VBG Lactic Acid 1.7 mmol/L mmol/L (0.7-2.1) Sodium 134 mEq/L mEq/L (134-144) Potassium 3.6 mEq/L mEq/L (3.5-5.2) Chloride 99 mEq/L mEq/L (97-110) Carbon Dioxide 24 mEq/l mEq/l (22-31) Anion Gap 11 mEq/L mEq/L (8-16) BUN 6 mg/dL L mg/dL (7-23) Creatinine 0.5 mg/dL L mg/dL (0.6-1.0) Estimated GFR > 60 Glucose 206 mg/dL H mg/dL (70-100) Calcium 9.2 mg/dL mg/dL (8.5-10.4) Total Bilirubin 0.9 mg/dL mg/dL (0.1-1.4) Conjugated Bilirubin 0.3 mg/dL mg/dL (0.0-0.5) Unconjugated Bilirubin 0.6 mg/dL mg/dL (0.0-1.1) AST 133 IU/L H IU/L (14-46) ALT 179 IU/L H IU/L (9-52) Alkaline Phosphatase 200 IU/L H IU/L (38-126) Total Protein 6.7 g/dL g/dL (6.3-8.2) Albumin 3.7 g/dL g/dL (3.5-5.0) Lipase 236 IU/L IU/L (23-300) Departure - [facility] Clinical Impression: Fever, Abnormal liver function test Condition: Good Referrals: Monica Lebron MD [Primary Care Provider] - As per Instructions
[2017-11-03 14:13] LABS: % IMMATURE GRANULYOCYTES 0.4 % (0.0-1.1); ABSOLUTE IMMATURE GRANULOCYTES 0.03 10^3/uL (0.00-0.10); ADD DIFF? NO; ADD MORPH? NO; ADD SCAN? NO; ATYPICAL LYMPHOCYTE FLAG 0 (0-99); FRAGMENT RBC FLAG 0 (0-99); HEMATOCRIT 31.6 % (38.0-47.0); HEMOGLOBIN 11.7 g/dL (12.6-16.3); LEFT SHIFT FLG 0 (0-99); LIPEMIA HEMOLYSIS FLAG 90 (0-99); MEAN CELL HEMOGLOBIN 36.3 pg (27.9-34.1); MEAN CELL VOLUME 98.1 fL (81.5-99.8); MEAN PLATELET VOLUME 10.8 fL (8.7-11.7); PLATELET CLUMPS FLAG 30 (0-99); PLATELET COUNT 113 10^3/uL (150-400); RED BLOOD CELL COUNT 3.22 10^6/uL (4.18-5.33); RED CELL DISTRIBUTION WIDTH 16.9 % (11.5-15.2)
[2017-11-03 14:31] LABS: ALANINE AMINOTRANSFERASE 179 IU/L (9-52); ALBUMIN 3.7 g/dL (3.5-5.0); ALKALINE PHOSPHATASE 200 IU/L (38-126); ANION GAP 11 mEq/L (8-16); ASPARTATE AMINOTRANSFERASE 133 IU/L (14-46); BILIRUBIN,TOTAL 0.9 mg/dL (0.1-1.4); BILIRUBIN-CONJUGATED 0.3 mg/dL (0.0-0.5); BILIRUBIN-UNCONJUGATED 0.6 mg/dL (0.0-1.1); CALCIUM 9.2 mg/dL (8.5-10.4); CARBON DIOXIDE 24 mEq/l (22-31); CHLORIDE 99 mEq/L (97-110); CREATININE 0.5 mg/dL (0.6-1.0); GLOMERULAR FILTRATION RATE > 60; GLUCOSE 206 mg/dL (70-100); POTASSIUM 3.6 mEq/L (3.5-5.2); SODIUM 134 mEq/L (134-144); TOTAL PROTEIN 6.7 g/dL (6.3-8.2)
[2017-11-03] MEDS ORDERED: ONDANSETRON 4 MG/2 ML VIAL IVP PRN (15:33)
[2017-11-03] MEDS ORDERED: ONDANSETRON DISINTEGRATING 4 MG TAB PO PRN (15:33)
[2017-11-03] MEDS ORDERED: NS 1,000 ML IV SCH (15:45)
[2017-11-03] MEDS ORDERED: LOPERAMIDE HCL 2 MG CAP PO PRN (16:31)
[2017-11-03] MEDS ORDERED: PERTZYE PO PRN (16:31)
[2017-11-03] MEDS ORDERED: PROCHLORPERAZINE MALEATE 10 MG TAB PO PRN (16:31)
--- NOTE | 2017-11-03 17:27 | GHP ---
[f rep st] HISTORY AND PHYSICAL DATE OF ADMISSION: 11/03/2017 CHIEF COMPLAINT: Fever and abdominal discomfort. HISTORY OF PRESENT ILLNESS: A 67-year-old female with a history of pancreatic cancer with a biliary stent, actively receiving chemotherapy, who presents with complaints of elevated temperature at home and associated abdominal discomfort. The patient had a hospitalization in June 2017 with similar p resenting complaints and was diagnosed with acalculous cholecystitis. She was hospitalized for 2 day s, treated with IV antibiotics, and had resolution of her symptoms. The patient reports feeling well since about last discharge. She was continued on her normal course of chemotherapeutic. The patien jevon reports that her last chemo dose was 10/21/2017, and that she went through her normal cycle of side effects, which include some nausea, lethargy, skin changes. All of those were normal, and typically when those would resolve and she would feel better, she started experiencing some loading, gassy dis comfort in her abdomen and measured elevated temperatures at home. As this paralleled her previous h ospitalization, she knew to present. She went to her primary care clinic today, who referred her to the emergency department for evaluation. In the ED, patient is denying chest pain, denying shortness of breath. Reports abdominal discomfort, particularly epigastric, described as gassy. Reports 1 ep isode of diarrhea this morning described as nonbloody. Denies any emesis. Denies any rashes. Does have desquamative changes on the soles of her bilateral feet, which are typical with her chemotherapy . PAST MEDICAL HISTORY: 1. Pancreatic cancer, status post biliary stenting, receiving active chemotherapy. 2. Hypothyroidism. 3. Recent weight loss secondary to her chemotherapy treatment. SOCIAL HISTORY: Negative for tobacco, alcohol, marijuana, or illicit drugs. FAMILY HISTORY: Positive for pancreatic cancer in her great grandfather. ADVANCE DIRECTIVES: Patient is full cor, full tube. Her would be her medical decision maker . REVIEW OF SYSTEMS: A 10-point review of systems is negative, with the exception of that reported in the HPI. PHYSICAL EXAMINATION: VITAL SIGNS: Blood pressure 134/80, heart rate 102, respiratory rate 18, 96 o n room air. The patient is febrile in the emergency department. GENERAL: This is a thin-appearing female in no acute distress. HEENT: Notable for dry mucous membranes. Eye exam is negative for any icterus. CARDIAC: Patient is regular rhythm, but tachycardic. PULMONARY: Clear to auscultation b ilaterally. GASTROINTESTINAL: Positive bowel sounds. ABDOMEN: Tender to palpation in the epigastr ium and right upper quadrant. No rebound or guarding is appreciated. MUSCULOSKELETAL: Negative for any lower extremity edema. SKIN: Notable for skin peeling of the bilateral soles. Otherwise, no r ashes are appreciated. NEUROLOGIC: She is alert and oriented x3. PSYCHIATRIC: She is pleasant and cooperative on interview and examination. DATA: Telemetry, which I personally reviewed and interpreted, shows sinus tachycardia. LABORATORY DATA: White count 7.9, hematocrit 31.6, which is below recent baselines. Hemoglobin 11.7, platelet count of 113, which is below recent baselines. AST 133, ALT 179, alkaline phosphatase 200, creatinine 0.5. Sodium 134, lipase 236. ASSESSMENT AND PLAN: This is a 67-year-old female presenting with fever and abdominal pain. 1. Sepsis. The patient is presenting febrile, tachycardic. Presumed source is biliary. The patient will be initiated on empiric IV antibiotics. Blood cultures were obtained in the emergency departme nt. The patient will be admitted to the medical floor on IV fluids until her oral intake normalizes. 2. Suspected acalculous cholecystitis. As the patient had a similar hospitalization recently, we ar e optimistic that that is in fact recurring. We have ordered abdominal ultrasound, and again, will e mpirically treat with IV antibiotics and follow the patient clinically. 3. Pancreatic cancer. The patient is actively receiving chemotherapy. We will loop Oncology into t he discussion while she is inpatient. 4. Hypothyroidism. We will continue thyroid replacement therapy. 5. Prophylaxis with Lovenox. DIET: Regular. DISPOSITION: I expect greater than 2 midnights as the patient is presenting with sepsis physiology, presumed source biliary, requiring fluid resuscitation and antibiotics. I have discussed the case wi th the emergency room physician. Patient will be triaged to the medical-surgical floor for care. /[id number]/MODL
--- NOTE | 2017-11-03 19:37 | PDMN ---
Medical Necessity Medical necessity: C/M review: est. > 2 MN LOS for eval and TX of acute and persistent sepsis, suspected acalculous cholecystitis, fevers, abdominal pain, planned Oncology consult, requiring ongoing IV Levaquin, IV Flagyl, IV fluids, NPO, acute inpt PT/OT, comorbid history of pancreatic cancer S/P biliary stenting receiving active chemotherapy, hypothyroidism, history of recent weight loss secondary to chemotgherapy treatment per H/P.
[2017-11-04] MEDS: clonazePAM 0.5 MG TAB PO PRN (00:17)
[2017-11-04] MEDS: ACETAMINOPHEN 325 MG TAB PO PRN (00:29)
[2017-11-04] MEDS: LEVOTHYROXINE 125 MCG TAB PO SCH (06:10)
[2017-11-04 06:29] LABS: ADD DIFF? YES; ADD MORPH? NO; ADD SCAN? NO; ATYPICAL LYMPHOCYTE FLAG 30 (0-99); FRAGMENT RBC FLAG 0 (0-99); HEMOGLOBIN 11.6 g/dL (12.6-16.3); LEFT SHIFT FLG 0 (0-99); LIPEMIA HEMOLYSIS FLAG 90 (0-99); MEAN CELL HEMOGLOBIN 36.3 pg (27.9-34.1); MEAN CELL HEMOGLOBIN CONCENTR. 36.3 g/dL (32.4-36.7); MEAN PLATELET VOLUME 10.6 fL (8.7-11.7); PLATELET CLUMPS FLAG 0 (0-99); PLATELET COUNT 115 10^3/uL (150-400); RED CELL DISTRIBUTION WIDTH 16.9 % (11.5-15.2)
[2017-11-04 06:44] LABS: ANION GAP 12 mEq/L (8-16); CARBON DIOXIDE 23 mEq/l (22-31); CHLORIDE 109 mEq/L (97-110); CREATININE 0.5 mg/dL (0.6-1.0); GLOMERULAR FILTRATION RATE > 60; GLUCOSE 122 mg/dL (70-100); POTASSIUM 3.8 mEq/L (3.5-5.2); SODIUM 144 mEq/L (134-144)
[2017-11-04 06:53] LABS: PLATELET ESTIMATE DECREASED (ADEQ); POLYCHROMASIA 1+
[2017-11-04] MEDS: ENOXAPARIN 40 MG/0.4 ML SYR SC SCH (08:44)
[2017-11-04] MEDS ORDERED: Herbals/Supplements -Info Only PO SCH (09:00)
--- NOTE | 2017-11-04 10:06 | ASMTCMCOM ---
CM Note CM Note Notes: Pt with hx of pancreatic ca admitted for cholecystitis. At last admission in June pt DC'd with no needs. Pt's current DC needs are unclear. C/M will continue to follow. Date Signed: 11/04/2017 10:05 AM Electronically Signed By:Roma Burger LCSW
[2017-11-04 10:40] LABS: ALBUMIN 3.2 g/dL (3.5-5.0); BILIRUBIN,TOTAL 0.8 mg/dL (0.1-1.4); BILIRUBIN-CONJUGATED 0.4 mg/dL (0.0-0.5); BILIRUBIN-UNCONJUGATED 0.4 mg/dL (0.0-1.1); TOTAL PROTEIN 5.8 g/dL (6.3-8.2)
[2017-11-04 11:19] LABS: PROCALCITONIN 0.31 ng/mL (0.02-0.10)
[2017-11-04] MEDS ORDERED: SINCALIDE 5 MCG VIAL IJ ONE (11:49)
--- NOTE | 2017-11-04 16:16 | HOSPPROG ---
Hospitalist Progress Note Assessment/Plan: Assessment: 67-year-old female presents with suspected acalculous cholecystitis resulting in fever, nausea, in the setting of pancreatic cancer Plan: 1. Suspected acalculous cholecystitis. Acute, new problem this provider, further workup indicated. Evidenced by septated gallbladder on ultrasound, HIDA scan demonstrating no uptake and possible cholecystitis, patient with complicated anatomy given pancreatic cancer, biliary stent -discussed with Dr. Josseline Merrill, he would recommend getting ERCP and then determining whether the patient should undergo ERCP based on the results, may require complex invasive stent evaluation on Monday -discussed with Dr. Ameya Madera, he does not recommend emergent surgery, recommends ongoing IV antibiotic therapy, further anatomical workup as above -continue monitor liver panel -continue IV antibiotics including levofloxacin and metronidazole 2. Pancreatic cancer. Status post biliary stent at [facility], patient also actively undergoing chemotherapy -appreciate ongoing oncology consultation by Dr. Sally Jacob -obtain outside records including most recent clinic note from Dr. Bender, most recent abdominal imaging results from [facility] Diet. Regular Prophylaxis. High risk patient, currently Lovenox, hold in a.m. given potential procedures, SCDs that time Code. Full Disposition. Anticipated discharge is uncertain this time, anticipated length stay is greater than 48 hr, clinical condition is unresolved and requires further workup at this time. Subjective: Patient with some ongoing nausea, she is hungry Objective: Vital Signs Temp Pulse Resp BP Pulse Ox 36.4 C 82 18 148/84 H 96 11/04/17 16:02 11/04/17 16:02 11/04/17 16:02 11/04/17 16:02 11/04/17 16:02 Laboratory Results 11/04/17 06:15 11/04/17 06:15 11/03/17 11/04/17 11/05/17 05:59 05:59 05:59 Intake Total 750 667 Output Total 1800 Balance -1050 667 - Physical Exam Constitutional: no apparent distress, not in pain, chronically ill appearing, uncomfortable Cardiovascular: regular rate and rhythym, no murmur, rub, or gallop, No edema Respiratory: no respiratory distress, no rales or rhonchi, clear to auscultation Gastrointestinal: normoactive bowel sounds, tenderness (Midepigastric area), No guarding, No distension Skin: warm, No abrasion, No erythema, No rash Neurologic: AAOx3, sensation intact bilaterally, No weakness Psychiatric: interacting appropriately, not encephalopathic, thought process linear, anxious ICD10 Worksheet Patient Problems: Problems Problem Status Onset Fever Acute Abnormal liver function test Acute
--- NOTE | 2017-11-04 16:37 | PDCONSULT ---
Reed Press Feeder Note: I was asked by Dr. Flores to evaluate this patient with RUQ pain, fever, and abnormal LFTs. Cierra is a pleasant 67yr old female admitted to hospital with pain, fever, and abnormal LFTs. Her current imaging and labs are consistent with gall bladder or bile duct infection. She is s/p metal stent placement for pancreatic cancer in 11/2016. She reports she had been doing well until 06/2017 when she developed fever and RUQ pain at that time. Acalculous cholecystitis was suspected, but surgery was not performed. She was dc'd on antibiotics and convalesced. Fortunately, she reports feeling well at this time, with minimal pain and only mild malaise. She denies jaundice. She reports no vomiting. She reports that she feels hungry H & P Stated Complaint: Fever Time Seen by Provider: 11/03/17 13:08 HPI/ROS: Mrs. Diggs is a pleasant 67 year old female with a history of pancreatic cancer. She had undergone biliary stenting and currently is undergoing chemotherapy with the [facility] for her disease. She was in her usual state of health until recently. She has begun to feel unwell, with RUQ pain, fever, and malaise. She had a similar presentation in June 2017, and was felt to have acalculous cholecystitis. She did not undergo operative management, due to the overlapping concerns related to her malignancy care. Source: Patient, Family, Old records - Personal History Current Tetanus/Diphtheria Vaccine: Yes Current Tetanus Diphtheria and Acellular Pertussis (TDAP): Yes - Medical/Surgical History Hx Asthma: No Hx Chronic Respiratory Disease: No Hx Diabetes: No Hx Cardiac Disease: No Hx Renal Disease: No Hx Cirrhosis: No Hx Alcoholism: No Hx HIV/AIDS: No Hx Splenectomy or Spleen Trauma: No Other PMH: Hypothyroidism. pancreatic CA, on chemo - Family History Significant Family History: No: Cancer - Social History Smoking Status: Never smoked Drug Use: None Constitutional: Initial Vital Signs Temperature (C) 37.7 C 11/03/17 13:01 Heart Rate 102 H 11/03/17 13:01 Respiratory Rate 18 11/03/17 13:01 Blood Pressure 134/80 H 11/03/17 13:01 O2 Sat (%) 96 11/03/17 13:01 O2 Delivery Mode Room Air Allergies/Adverse Reactions: Penicillins Allergy (Verified 07/17/17 08:20) Rash Home Medications: Medication Instructions Recorded Levothyroxine [Synthroid 125 mcg 125 mcg PO DAILY06 11/29/16 (*)] Ondansetron Odt [Zofran Odt 4 mg 8 mg PO DAILY PRN 07/17/17 (*)] Prochlorperazine Maleate 10 mg PO DAILY PRN 07/17/17 [Compazine 10mg (*)] Urea 40% [Urea Cream (*)] 1 silvio TP DAILY 07/17/17 clonazePAM [Klonopin (*)] 0.5 mg PO HS PRN 07/17/17 Capecitabine [Xeloda (*)] 1,000 mg PO BID PRN 11/03/17 Herbals/Supplements -Info Only 1 ea PO DAILY 11/03/17 Loperamide HCl [Imodium 2 mg (*)] 2 mg PO PRN PRN 11/03/17 Omeprazole [Prilosec 20 mg] 20 mg PO HS 11/03/17 Pertzye Capsule 1 ea PO TIDMEAL PRN 11/03/17 Review of Systems Review of Systems: - Review of Systems Constitutional: fever, malaise, weakness EENTM: denies: eye pain, blurred vision Respiratory: denies: cough, shortness of breath Cardiac: denies: chest pain, edema, irregular heart rate Gastrointestinal/Abdominal: abdominal pain, nausea. denies: diarrhea, vomiting Genitourinary: no symptoms Musculoskelatal: no symptoms Skin: no symptoms Neurological: no symptoms Hematologic/Lymphatic: no symptoms reported Immunologic/allergic: no symptoms reported - Physical Exam Constitutional: no apparent distress Eyes: PERRL Ears, Nose, Mouth, Throat: moist mucous membranes Cardiovascular: regular rate and rhythym, no murmur, rub, or gallop Respiratory: No no respiratory distress Gastrointestinal: normoactive bowel sounds, tenderness, ramirez's sign, No ascites Skin: warm, normal color Neurologic: AAOx3 Psychiatric: interacting appropriately Lab Data & Imaging Review 11/04/17 06:15 11/04/17 06:15 WBC 3.71 10^3/uL (3.80-9.50) L 11/04/17 06:15 RBC 3.20 10^6/uL (4.18-5.33) L 11/04/17 06:15 Hgb 11.6 g/dL (12.6-16.3) L 11/04/17 06:15 Hct 32.0 % (38.0-47.0) L 11/04/17 06:15 MCV 100.0 fL (81.5-99.8) H 11/04/17 06:15 MCH 36.3 pg (27.9-34.1) H 11/04/17 06:15 MCHC 36.3 g/dL (32.4-36.7) 11/04/17 06:15 RDW 16.9 % (11.5-15.2) H 11/04/17 06:15 Plt Count 115 10^3/uL (150-400) L 11/04/17 06:15 MPV 10.6 fL (8.7-11.7) 11/04/17 06:15 Neut % (Auto) Not Reported 11/04/17 06:15 Lymph % (Auto) Not Reported 11/04/17 06:15 Mclean % (Auto) Not Reported 11/04/17 06:15 Eos % (Auto) Not Reported 11/04/17 06:15 Baso % (Auto) Not Reported 11/04/17 06:15 Nucleat RBC Rel Count 0.0 % (0.0-0.2) 11/04/17 06:15 Absolute Neuts (auto) Not Reported 11/04/17 06:15 Absolute Lymphs (auto) Not Reported 11/04/17 06:15 Absolute Monos (auto) Not Reported 11/04/17 06:15 Absolute Eos (auto) Not Reported 11/04/17 06:15 Absolute Basos (auto) Not Reported 11/04/17 06:15 Absolute Nucleated RBC 0.00 10^3/uL (0-0.01) 11/04/17 06:15 Immature Gran % Not Reported 11/04/17 06:15 Seg Neutrophils % 50 % 11/04/17 06:15 Lymphocytes % 35 % 11/04/17 06:15 Monocytes % 14 % 11/04/17 06:15 Eosinophils % 1 % 11/04/17 06:15 Immature Gran # Not Reported 11/04/17 06:15 Absolute Seg Neuts 1.86 10^/uL (1.70-6.50) 11/04/17 06:15 Absolute Lymphocytes 1.30 10^3/uL (1.00-3.00) 11/04/17 06:15 Absolute Monocytes 0.52 10^3/uL (0.30-0.80) 11/04/17 06:15 Absolute Eosinophils 0.04 10^3/uL (0.03-0.40) 11/04/17 06:15 Platelet Estimate DECREASED (ADEQ) L 11/04/17 06:15 Polychromasia 1+ H 11/04/17 06:15 VBG Lactic Acid 1.7 mmol/L (0.7-2.1) 11/03/17 13:50 Sodium 144 mEq/L (134-144) 11/04/17 06:15 Potassium 3.8 mEq/L (3.5-5.2) 11/04/17 06:15 Chloride 109 mEq/L (97-110) D 11/04/17 06:15 Carbon Dioxide 23 mEq/l (22-31) 11/04/17 06:15 Anion Gap 12 mEq/L (8-16) 11/04/17 06:15 BUN 6 mg/dL (7-23) L 11/04/17 06:15 Creatinine 0.5 mg/dL (0.6-1.0) L 11/04/17 06:15 Estimated GFR > 60 11/04/17 06:15 Glucose 122 mg/dL (70-100) H 11/04/17 06:15 Calcium 9.0 mg/dL (8.5-10.4) 11/04/17 06:15 Total Bilirubin 0.8 mg/dL (0.1-1.4) 11/04/17 06:15 Conjugated Bilirubin 0.4 mg/dL (0.0-0.5) 11/04/17 06:15 Unconjugated Bilirubin 0.4 mg/dL (0.0-1.1) 11/04/17 06:15 AST 81 IU/L (14-46) H 11/04/17 06:15 ALT 144 IU/L (9-52) H 11/04/17 06:15 Alkaline Phosphatase 177 IU/L (38-126) H 11/04/17 06:15 Total Protein 5.8 g/dL (6.3-8.2) L 11/04/17 06:15 Albumin 3.2 g/dL (3.5-5.0) L 11/04/17 06:15 Lipase 236 IU/L (23-300) 11/03/17 13:50 Procalcitonin 0.31 ng/mL (0.02-0.10) H 11/04/17 06:15 Assessment and Plan Assessment: 1. Fever, RUQ Pain, Abnormal RUQ US - suspect cholecystitis - given Bili normal, doubt biliary stent complication of occlusion - biliary stent may be across cystic duct, but metal stent exchange is not without complication - recommend abx to cover cholecystitis - recommend MRCP to eval anatomy further - monitor LFTs and bili - LFT elevation likley from cholecystitis
[2017-11-04] MEDS: UREA 40% CREAM TP SCH (18:17)
--- NOTE | 2017-11-04 19:44 | PDCONSULT ---
Manager User Experience Note: Chief complaint: Fever, pancreatic cancer, cholecystitis Consult at the request of Dr. Flores History of present illness: Cierra Cadena is a 67-year-old patient who presents to the hospital with fever. She has had recent chemotherapy for pancreatic cancer. She has had a previous episode of fever treated with antibiotics in June similar elevations in transaminases and bilirubin resolved with this therapy. Currently admitted yesterday with elevation of her transaminases and fever thought to be a result of pancytopenia and infection. Differential diagnosis include cholangitis and cholecystitis. HIDA scan, CT scan and MRI have been performed showing nonfilling of the gallbladder and cholelithiasis with 1 stone in the cystic duct. She has had a previous metal stent placed in her common bile duct at [facility] in [place]. The patient denies any fevers chills or other signs of acute cholecystitis. She has tolerated a diet and has no elevation in absolute neutrophil count. Her pancytopenia secondary to chemotherapy could be the reason for her lack of response to inflammation. Past medical history includes pancreatic cancer Past surgical history pelvic surgery in the distant past, right Port-A-Cath Family history noncontributory Review of systems significant for pancreatic cancer, otherwise negative Medications at home: Levothyroxine [Synthroid 125 mcg (*)] 125 mcg PO DAILY06 11/29/16 [Last Taken ] Ondansetron Odt [Zofran Odt 4 mg (*)] 8 mg PO DAILY PRN 07/17/17 [Last Taken Unknown] Prochlorperazine Maleate [Compazine 10mg (*)] 10 mg PO DAILY PRN 07/17/17 [Last Taken 3 Days Ago ~10/31/17] Urea 40% [Urea Cream (*)] 1 silvio TP DAILY 07/17/17 [Last Taken Unknown] clonazePAM [Klonopin (*)] 0.5 mg PO HS PRN 07/17/17 [Last Taken 11/02/17] Capecitabine [Xeloda (*)] 1,000 mg PO BID PRN 11/03/17 [Last Taken 10/29/17] Herbals/Supplements -Info Only 1 ea PO DAILY 11/03/17 [Last Taken Unknown] Loperamide HCl [Imodium 2 mg (*)] 2 mg PO PRN PRN 11/03/17 [Last Taken 11/03/17 09:00] Omeprazole [Prilosec 20 mg] 20 mg PO HS 11/03/17 [Last Taken 11/02/17] Pertzye Capsule 1 ea PO TIDMEAL PRN 11/03/17 [Last Taken 11/03/17] Allergies: Penicillin Current medications in the hospital: Generic Name Dose Route Start Last Admin Trade Name Franklyn PRN Reason Stop Dose Admin Acetaminophen 650 mg 11/03/17 15:33 11/04/17 00:29 Tylenol PO 05/02/18 15:32 650 mg Q4HRS PRN Administration Pain, Mild/Fever, Can Take PO Clonazepam 0.5 mg 11/03/17 16:31 11/04/17 00:17 Klonopin PO 05/02/18 16:30 0.25 mg HS PRN Administration Anxiety Enoxaparin Sodium 40 mg 11/04/17 09:00 11/04/17 08:44 Lovenox SC 05/03/18 08:59 40 mg DAILY MARTIN Administration Levofloxacin/Dextrose 150 mls @ 100 mls/hr 11/04/17 09:00 11/04/17 08:44 Levaquin 750 Mg (Premix) IV 12/04/17 08:59 150 mls DAILY MARTIN Administration Protocol Metronidazole/Sodium Chloride 100 mls @ 100 mls/hr 11/04/17 01:30 11/04/17 17 :48 Flagyl 500 Mg (Premix) IV 12/04/17 01:29 100 mls Q8H MARTIN Administration Protocol Levothyroxine Sodium 125 mcg 11/04/17 06:00 11/04/17 06:10 Synthroid PO 05/03/18 05:59 125 mcg DAILY06 MARTIN Administration Urea 1 silvio 11/04/17 09:00 11/04/17 18:17 Urea 40% Cream TP 05/03/18 08:59 Not Given DAILY MARTIN Discontinued Medications Generic Name Dose Route Start Last Admin Trade Name Franklyn PRN Reason Stop Dose Admin Levofloxacin/Dextrose 150 mls @ 100 mls/hr 11/03/17 14:39 11/03/17 15:32 Levaquin 750 Mg (Premix) IV 11/03/17 16:08 150 mls EDNOW ONE Administration Protocol Metronidazole/Sodium Chloride 100 mls @ 100 mls/hr 11/03/17 14:40 11/03/17 17 :51 Flagyl 500 Mg (Premix) IV 11/03/17 15:39 100 mls EDNOW ONE Administration Protocol Sodium Chloride 1,000 mls @ 100 mls/hr 11/03/17 15:45 11/03/17 21:35 Ns IV 05/02/18 15:44 1,000 mls CONT MARTIN Administration Metronidazole/Sodium Chloride 100 mls @ 100 mls/hr 11/03/17 17:30 11/03/17 18 :54 Flagyl 500 Mg (Premix) IV 11/03/17 18:29 Not Given EDNOW ONE Protocol Morphine Sulfate 2 mg 11/04/17 12:45 11/04/17 12:43 Morphine IVP 11/04/17 12:46 2 mg ONCE ONE Administration Alert oriented. Regular rate and rhythm Clear to auscultation Anicteric sclerae No JVD thyromegaly or cervical or supraclavicular adenopathy Right chest Port-A-Cath accessed without signs of inflammation Extremities without edema Abdomen soft nontender mass effect in the right upper quadrant without tenderness 11/04/17 06:15 11/04/17 06:15 Total Bilirubin 0.8 mg/dL (0.1-1.4) 11/04/17 06:15 Conjugated Bilirubin 0.4 mg/dL (0.0-0.5) 11/04/17 06:15 Unconjugated Bilirubin 0.4 mg/dL (0.0-1.1) 11/04/17 06:15 AST 81 IU/L (14-46) H 11/04/17 06:15 ALT 144 IU/L (9-52) H 11/04/17 06:15 Imaging Impressions Hepatobiliary Scan Nuclear Medicine 11/04/17 09:30 Impression: Nonvisualization of the gallbladder which could be related to cystic duct obstruction, cholecystitis, or occlusion by a biliary stent. Findings discussed with the charge nurse on November 04, 2017 at 1348 hours. Findings discussed with Ameya Madera 11/04/2017 at 14:20. Abdomen MRI 11/04/17 15:30 Impression: Cholelithiasis, cystic duct stone and a filling defect in the common duct possibly representing choledocholithiasis and/or sludge. This patient would likely benefit from an ERCP. Impression/plan: Given her MRI findings it is likely the patient has acute cholecystitis with blockage of the cystic duct. As the patient is otherwise asymptomatic I would continue non operative therapy for now. Possible cholangitis: I would like to discuss her findings with gastroenterology to determine whether or not ERCP should be performed concurrently for elevation of her transaminases which could be due to stent occlusion or possibly Mirizzi's syndrome. Pancreatic cancer This may change the patient's overall desire for surgery. She is not currently in remission and this would be purely for palliation of symptoms in this case her main symptom is fever but cholangitis cannot be entirely ruled out
[2017-11-04] MEDS: PANTOPRAZOLE SODIUM 40 MG TAB PO SCH (21:56)
--- NOTE | 2017-11-04 22:43 | GCON ---
[f rep st] CONSULTATION ONCOLOGY INITIAL VISIT PRIMARY ONCOLOGIST: Dr. Yo Bender. REASON FOR VISIT: Evaluation and management of metastatic pancreatic cancer. HISTORY OF PRESENT ILLNESS: The patient is a 67-year-old woman who was diagnosed in November 2016 with locally advanced pancreatic cancer. She was actually seen at the [facility] for potential [facility] and underwent neoadjuvant chemotherapy with gemcitabine and Abraxane since she was borderline. She underwent 4 courses, but did not undergo surgery and instead underwent stereotactic radiation in March. About a month afterward, a restaging CT scan showed new liver metastasis along with elevated CA-19-9. It was about that time when she was started on capecitabine plus oxaliplatin. She started this in May 2017. Her most recent PET CT scan last month showed stable appearance and a left lung nodule, resolution of the garrett caval lymph node. The pancreatic head tumor appeared smaller and less intense and no evidence of liver disease. She was admitted in June of this year with fever. She does have a metal stent in the common bile duct. That situation resolved with just antibiotics. She presented yesterday with about a 2 day history of low grade fever and abdominal pain. She has also for a while been having pale stools. Her last round of chemotherapy started on October 20, and she only took the capecitabine twice daily up until Monday, the . She has not had an appetite and just generally not feeling well. On admission her white count was normal at 7900, although overnight it has dropped down to 3700. Her ACLT and alk phos were elevated, but not her total bilirubin. This morning she is feeling a little better. ALLERGIES: She is allergic to penicillin. HOME MEDICATIONS: Capecitabine as per HPI, Loperamide as needed, omeprazole, levothyroxine, Klonopin, urea cream, prochlorperazine as needed and ondansetron as needed and pancreatic enzyme capsule. CHRONIC ILLNESSES: 1. Pancreatic cancers per HPI status post biliary stenting. 2. Hypothyroidism. SURGICAL HISTORY: Myomectomy. SOCIAL HISTORY: She is a microbiologist. She is . No tobacco or alcohol use. FAMILY HISTORY: Significant for pancreatic cancer in grandfather. Father of AML. REVIEW OF SYSTEMS: 10 point review of systems was performed. Pertinent positives per HPI otherwise negative. PHYSICAL EXAMINATION: VITAL SIGNS: Current temp is 36.6. Pulse is 79. Blood pressure is 127/76. When she came in, her pulse was 102 and her temp was 37.7. GENERAL: She is chronically ill, but in no distress. HEENT: Unremarkable. LUNGS: Clear. CARDIAC: Regular. ABDOMEN: Soft and firmness in the right upper quadrant, but not tender and no rebound or referred pain. NEUROLOGIC: Grossly intact. SKIN: No rash today. LABORATORY/IMAGING DATA: White count is 3700 with an ANC of 1800. Hemoglobin was 11.6 g/dL, platelet count 115,000. When she arrived, her AST and ALT were 133 and 179. Alk phos was 200. Her other chemistries were okay. Today her AST and ALT are 81 and 144, alk phos 199, total bilirubin 0.8. Ultrasound which I discussed with the patient shows no increase in bile duct dilatation. Stents in place. There is mild hepatomegaly. There is borderline gallbladder wall thickening with a complex septated cystic solid hemant cholecystic area measuring 3.5 cm. Cultures are still negative. IMPRESSION: 1. Fever and elevated liver function tests. The patient with pancreatobiliary stent. 2. Metastatic pancreatic cancer. DISCUSSION/PLAN: I think the biliary area is the source. The stent at least appears to be working correctly since her bilirubin is normal and there is no increased duct dilatation. Cannot rule out some nonspecific sludge in the stent. It is also possible that there is something abnormally wrong going on in her gallbladder. She has this abnormality that was present before and maybe a little bit worse. Also her liver function tests are elevated with a normal bilirubin. She is having a HIDA scan today which I agree with and it may be reasonable to have Surgery come by and evaluate her. Her blood counts are fine since the most recent chemotherapy and I do not anticipate them to get significantly worse. We will follow along with you while in the hospital. /[id number]/MODL MTDD
[2017-11-05] MEDS: clonazePAM 0.5 MG TAB PO PRN (00:09)
[2017-11-05] MEDS: ACETAMINOPHEN 325 MG TAB PO PRN (00:09)
[2017-11-05] MEDS: LEVOTHYROXINE 125 MCG TAB PO SCH (06:18)
[2017-11-05 06:31] LABS: ADD DIFF? YES; ADD MORPH? NO; ADD SCAN? NO; ATYPICAL LYMPHOCYTE FLAG 30 (0-99); FRAGMENT RBC FLAG 0 (0-99); HEMATOCRIT 32.7 % (38.0-47.0); HEMOGLOBIN 11.8 g/dL (12.6-16.3); LEFT SHIFT FLG 0 (0-99); LIPEMIA HEMOLYSIS FLAG 90 (0-99); MEAN CELL HEMOGLOBIN 36.1 pg (27.9-34.1); MEAN CELL HEMOGLOBIN CONCENTR. 36.1 g/dL (32.4-36.7); MEAN PLATELET VOLUME 9.7 fL (8.7-11.7); PLATELET CLUMPS FLAG 20 (0-99); PLATELET COUNT 120 10^3/uL (150-400); RED BLOOD CELL COUNT 3.27 10^6/uL (4.18-5.33); RED CELL DISTRIBUTION WIDTH 16.8 % (11.5-15.2)
[2017-11-05 06:53] LABS: MICROCYTES 1+; PLATELET ESTIMATE DECREASED (ADEQ); POLYCHROMASIA 1+
[2017-11-05 06:59] LABS: ALANINE AMINOTRANSFERASE 136 IU/L (9-52); ALBUMIN 3.4 g/dL (3.5-5.0); ALKALINE PHOSPHATASE 193 IU/L (38-126); ANION GAP 11 mEq/L (8-16); ASPARTATE AMINOTRANSFERASE 88 IU/L (14-46); BILIRUBIN,TOTAL 0.7 mg/dL (0.1-1.4); CALCIUM 9.1 mg/dL (8.5-10.4); CARBON DIOXIDE 26 mEq/l (22-31); CHLORIDE 107 mEq/L (97-110); CREATININE 0.5 mg/dL (0.6-1.0); GLOMERULAR FILTRATION RATE > 60; GLUCOSE 115 mg/dL (70-100); POTASSIUM 4.1 mEq/L (3.5-5.2); SODIUM 144 mEq/L (134-144); TOTAL PROTEIN 6.3 g/dL (6.3-8.2)
[2017-11-05] MEDS: UREA 40% CREAM TP SCH (09:03)
--- NOTE | 2017-11-05 09:43 | SOAPPROG ---
SOAP Progress Note Assessment/Plan: Assessment/Plan: cholelithiasis with stone in the cystic duct pancreatic ca d/w pt and rational for conservative treatment versus lap christiane ERCP anticipation for 11/06 may consider concurrent procedures to have single anesthetic 11/05/17 09:41 Objective: Vital Signs Temp Pulse Resp BP Pulse Ox 36.9 C 77 16 144/80 H 97 11/05/17 07:49 11/05/17 07:49 11/05/17 07:49 11/05/17 07:49 11/05/17 07:49 Laboratory Results 11/05/17 06:29 11/05/17 06:29 11/04/17 11/05/17 11/06/17 05:59 05:59 05:59 Intake Total 750 1667 Output Total 1800 Balance -1050 1667 ICD10 Worksheet Patient Problems: Problems Problem Status Onset Abnormal liver function test Acute Fever Acute
--- NOTE | 2017-11-05 12:17 | SOAPPROG ---
SOROMAN Progress Note Assessment/Plan: E&M pancreatic cancer * Cholecystitis with cystic duct obstruction from stone: Like cause of fever and decreased appetite. Will probably need an intervention or the problem with continue to recur especially with chemotherapy. He cancer is under good control and her labs are adequate to due the procedure sooner than later. They are going to speak with surgery and GI. * Pancreatic cancer: day 17 of CAPOX; last PET shows disease under good control. Counts adequate. If she had surgery, would probably delay start of next therapy by a week or two but a good window to consider doing it now. Dr. Bender will see her tomorrow. Subjective: Doing a little better. with patient. Objective: Vital Signs Temp Pulse Resp BP Pulse Ox 36.9 C 77 16 144/80 H 97 11/05/17 07:49 11/05/17 07:49 11/05/17 07:49 11/05/17 07:49 11/05/17 07:49 Laboratory Results 11/05/17 06:29 11/05/17 06:29 11/04/17 11/05/17 11/06/17 05:59 05:59 05:59 Intake Total 750 1667 Output Total 1800 Balance -1050 1667 MRCP (without contrast) Impression: Cholelithiasis, cystic duct stone and a filling defect in the common duct possibly representing choledocholithiasis and/or sludge. This patient would likely benefit from an ERCP. Dictated By: Raffy Momin MD Physical Exam - Physical Exam General Appearance: no apparent distress Abdomen: hepatomegaly (mildly tender) ICD10 Worksheet Patient Problems: Problems Problem Status Onset Abnormal liver function test Acute Fever Acute
--- NOTE | 2017-11-05 14:24 | SOAPPROG ---
SOAP Progress Note Assessment/Plan: Assessment: 1. Abn LFTs, fever, Abn imaging biliary tree - suspect cholelithiasis and choledocholithiasis - MRCP, labs, US consistent with the above Plan: 1. ERCP with manipulation of bile ducts to remove stone and restore flow ( exchange stent, stent within stent, simple balloon extraction) 2. Cholecystectomy 3. Will review recommendation and determine plan of care tomorrow 4. Continue abx 5. npo p MN to allow intervention tomorrow. - 45min spent with the patient at the bedside, reviewing the above. 11/05/17 14:21 Subjective: CC: f/u bile duct obstruction S: no fever no nausea no jundice pain improved Objective: Vital Signs Temp Pulse Resp BP Pulse Ox 36.9 C 77 16 144/80 H 97 11/05/17 07:49 11/05/17 07:49 11/05/17 07:49 11/05/17 07:49 11/05/17 07:49 Laboratory Results 11/05/17 06:29 11/05/17 06:29 11/04/17 11/05/17 11/06/17 05:59 05:59 05:59 Intake Total 750 1667 Output Total 1800 Balance -1050 1667 Physical Exam - Physical Exam General Appearance: alert EENT: PERRL/EOMI, No scleral icterus (R), No scleral icterus (L) Respiratory: chest non-tender, lungs clear, normal breath sounds Cardiac/Chest: normal peripheral pulses, regular rate, rhythm, No edema Abdomen: normal bowel sounds, non-tender, soft Skin: normal color, warm/dry, No cyanosis Extremities: normal range of motion, non-tender Neuro/Psych: no motor/sensory deficits, alert, normal mood/affect ICD10 Worksheet Patient Problems: Problems Problem Status Onset Abnormal liver function test Acute Fever Acute
--- NOTE | 2017-11-05 15:42 | HOSPPROG ---
Hospitalist Progress Note Assessment/Plan: Assessment: 67-year-old female presents with acute cholecystitis and choledocholelithiasis resulting in fever, nausea, in the setting of pancreatic cancer Plan: 1. Acute cholecystitis and choledolithiasis. E/o obstruction in cystic duct on MRCP, unclear whether there is any relationship to her current indwelling biliary stent which was placed at [facility] for her pancreatic cancer obstruction -continue IV antibiotics including levofloxacin and metronidazole -d/w Dr. Madera, he does recommend cholecystectomy -per Dr. Merrill, performing concomitant ERCP by GI interventionalist may be of value to assess stent, ask that tomorrow GI interventionalist coordinate w/ Dr. Madera to determine best way to accomplish both procedures -Dr. Jacob and I rounded w/ patient and jointly today, and we did advise them that pursuing interventional procedures (CCY/ERCP) sooner rather than later would likely expose patient to the least risk, since she is currently scheduled to continue chemotherapy and her counts will likely worsen in the future w/ chemo, her pancreatic cancer is in a stable/responsive place on most recent PET (so she can get surgery now and have a minor delay in next chemo cycle), and she is likely to continue having GI symptoms (nausea, anorexia ) and infxn symptoms (fever) if no intervention is undertaken -patient and will consider this information today, eat a regular diet, and discuss w/ primary oncologist (Dr. Bender) tomorrow -per Dr. Merrill, patient is NPO after MN for possible intervention tomorrow 2. Pancreatic cancer. Status post biliary stent at [facility], patient also actively undergoing chemotherapy -appreciate ongoing oncology consultation -patient/ very agitated this AM regarding what they perceived as "dehydration" while NPO and poor coordination of care, and I attempted to reassure them that our dietary orders are deliberate and intended to provide her w/ appropriate care, her labs demonstrate no e/o "dehydration", temporary NPO for possible procedures has low impact on overall nutritional status, and we will do our best to provide coordinated care moving forward -patient's cognitive processing is somewhat impaired by her recent chemo, and she requests that her be present for all major discussions Diet. Regular, NPO after MN w/ IVF Prophylaxis. High risk patient, SCDs, holding pharm for likely procedure Code. Full Disposition. Anticipated discharge is uncertain this time, anticipated length stay is greater than 48 hr, clinical condition is unresolved and requires likely surgery at this time. Subjective: patient and very upset about dietary orders, hungry, thirsty , having BMs, minimal abd pain Objective: Vital Signs Temp Pulse Resp BP Pulse Ox 36.9 C 77 16 144/80 H 97 11/05/17 07:49 11/05/17 07:49 11/05/17 07:49 11/05/17 07:49 11/05/17 07:49 Laboratory Results 11/05/17 06:29 11/05/17 06:29 11/04/17 11/05/17 11/06/17 05:59 05:59 05:59 Intake Total 750 1667 Output Total 1800 Balance -1050 1667 - Time Spent With Patient Time Spent with Patient: greater than 35 minutes Time Spent with Patient: Greater than 35 minutes spent on this patients care, greater than 50% of time spent counseling, educating, and coordinating care regarding the above mentioned plan. - Physical Exam Constitutional: not in pain, chronically ill appearing, uncomfortable, cachectic Cardiovascular: No tachycardia, No edema Respiratory: no respiratory distress, no rales or rhonchi, clear to auscultation Gastrointestinal: normoactive bowel sounds, tenderness (mid-epigastric), No no palpable masses (mid-epigastric mass), No guarding, No distension Psychiatric: not encephalopathic, anxious, agitated, other (initially hostile, then calmed during encounter) ICD10 Worksheet Patient Problems: Problems Problem Status Onset Fever Acute Abnormal liver function test Acute
[2017-11-05] MEDS: PANTOPRAZOLE SODIUM 40 MG TAB PO SCH (21:17)
[2017-11-06] MEDS: clonazePAM 0.5 MG TAB PO PRN (02:43)
[2017-11-06] MEDS: ACETAMINOPHEN 325 MG TAB PO PRN (02:43)
[2017-11-06] MEDS: LEVOTHYROXINE 125 MCG TAB PO SCH (06:18)
[2017-11-06 06:30] LABS: ADD DIFF? NO; ADD MORPH? NO; ADD SCAN? NO; ATYPICAL LYMPHOCYTE FLAG 30 (0-99); FRAGMENT RBC FLAG 0 (0-99); HEMATOCRIT 32.3 % (38.0-47.0); HEMOGLOBIN 11.7 g/dL (12.6-16.3); LEFT SHIFT FLG 0 (0-99); LIPEMIA HEMOLYSIS FLAG 90 (0-99); MEAN CELL HEMOGLOBIN 35.9 pg (27.9-34.1); MEAN CELL HEMOGLOBIN CONCENTR. 36.2 g/dL (32.4-36.7); MEAN CELL VOLUME 99.1 fL (81.5-99.8); MEAN PLATELET VOLUME 10.3 fL (8.7-11.7); PLATELET CLUMPS FLAG 0 (0-99); PLATELET COUNT 142 10^3/uL (150-400); RED BLOOD CELL COUNT 3.26 10^6/uL (4.18-5.33); RED CELL DISTRIBUTION WIDTH 16.7 % (11.5-15.2)
[2017-11-06 06:47] LABS: ALANINE AMINOTRANSFERASE 113 IU/L (9-52); ALBUMIN 3.4 g/dL (3.5-5.0); ALKALINE PHOSPHATASE 202 IU/L (38-126); ANION GAP 12 mEq/L (8-16); ASPARTATE AMINOTRANSFERASE 65 IU/L (14-46); BILIRUBIN,TOTAL 0.6 mg/dL (0.1-1.4); CALCIUM 9.4 mg/dL (8.5-10.4); CARBON DIOXIDE 23 mEq/l (22-31); CHLORIDE 108 mEq/L (97-110); CREATININE 0.5 mg/dL (0.6-1.0); GLOMERULAR FILTRATION RATE > 60; GLUCOSE 128 mg/dL (70-100); SODIUM 143 mEq/L (134-144); TOTAL PROTEIN 6.1 g/dL (6.3-8.2)
--- NOTE | 2017-11-06 08:23 | SOAPPROG ---
DESTINY Progress Note Assessment/Plan: Assessment/Plan: cholelithiasis with stone in the cystic duct pancreatic ca d/w pt and rational for conservative treatment versus lap christiane ERCP anticipation for 11/06 may consider concurrent procedures to have single anesthetic I have recommended cholecystectomy regardless of whether stent is partially obstructed and there is choledocholithiasis that can be cleared with the ERCP Pt and to make decision soon Await final decisions with Dr. Bender 11/06/17 08:21 Objective: Vital Signs Temp Pulse Resp BP Pulse Ox 36.4 C 86 16 155/88 H 94 11/06/17 08:12 11/06/17 08:12 11/06/17 08:12 11/06/17 08:12 11/06/17 08:12 Laboratory Results 11/06/17 06:20 11/06/17 06:20 11/05/17 11/06/17 11/07/17 05:59 05:59 05:59 Intake Total 1660 900 Balance 1665 900 ICD10 Worksheet Patient Problems: Problems Problem Status Onset Abnormal liver function test Acute Fever Acute
[2017-11-06] MEDS: ENOXAPARIN 40 MG/0.4 ML SYR SC SCH (08:36)
[2017-11-06] MEDS: UREA 40% CREAM TP SCH (08:50)
--- NOTE | 2017-11-06 11:43 | SOAPPROG ---
DESTINY Progress Note Assessment/Plan: Assessment: E&M pancreatic cancer * Cholecystitis with cystic duct obstruction from stone: Like cause of fever and decreased appetite. Will probably need an intervention or the problem with continue to recur especially with chemotherapy. Her cancer is under good control and her labs are adequate to due the procedure sooner than later. * * Pancreatic cancer: day 18 of CAPOX; last PET shows disease under good control. Counts adequate. If she had surgery, would probably delay start of next therapy by a week or two but a good window to consider doing it now. Dr. Bender will see her tomorrow. I spent approximately 40 min in floor time/patient counselling at the bedside/ care coordination. I discussed with the patient and her the risks and benefits of ERCP/stent change alone vs. combination with cholecystectomy. I told them that I would favor a dual procedure if technically feasible due to a single anesthesia exposure and the high likelihood that her gallstones will continue to cause problems as a source of infection as her counts fluctuate with systemic palliative therapy going forward. Plan: I would favor ERCP/stent change + cholecystectomy during this hospitalization while the patient's medical status is optimized. Subjective: No N/V today. Mild epigastric discomfort. Normal BMs Objective: Vital Signs Temp Pulse Resp BP Pulse Ox 36.4 C 86 16 155/88 H 94 11/06/17 08:12 11/06/17 08:12 11/06/17 08:12 11/06/17 08:12 11/06/17 08:12 Laboratory Results 11/06/17 06:20 11/06/17 06:20 11/04/17 11/05/17 11/06/17 23:59 23:59 23:59 Intake Total 2417 900 Output Total 600 Balance 1817 900 Physical Exam - Physical Exam General Appearance: alert, no apparent distress Respiratory: lungs clear Cardiac/Chest: regular rate, rhythm Abdomen: normal bowel sounds, hepatomegaly Skin: No jaundice Neuro/Psych: oriented x 3 ICD10 Worksheet Patient Problems: Problems Problem Status Onset Abnormal liver function test Acute Fever Acute
--- NOTE | 2017-11-06 16:36 | ASMTCMCOM ---
CM Note CM Note Notes: Discussed case with primary RN. Patient may need dual procedure (ERCP with Cholecystectomy). Discharge plan unclear at this time. Per RN, patient does have a very supportive . Case Management will continue to follow medical plan and assess for needs. Date Signed: 11/06/2017 04:37 PM Electronically Signed By:Molly Plunkett RN
--- NOTE | 2017-11-06 17:04 | SOAPPROG ---
SOAP Progress Note Assessment/Plan: Assessment: 1. Abn LFTs, fever, Abn imaging biliary tree - suspect cholelithiasis and choledocholithiasis - MRCP, labs, US consistent with the above Plan: 1. ERCP with manipulation of bile ducts to remove stone and restore flow ( exchange stent, stent within stent, simple balloon extraction) 2. Cholecystectomy 3. Will discuss with surgery to consider timing. Single procedure with cholecystectomy and ercp is feasible, but may be hard to schedule. 40min spent in counseling and coordination fo care, greater than 1/2 at the bedside. Subjective: CC: f/u choledocholithiasis S: no fever, no pain, mild nausea, anxiety, no diarrhea Objective: Vital Signs Temp Pulse Resp BP Pulse Ox 36.6 C 80 18 142/83 H 96 11/06/17 15:25 11/06/17 15:25 11/06/17 15:25 11/06/17 15:25 11/06/17 15:25 Laboratory Results 11/06/17 06:20 11/06/17 06:20 11/05/17 11/06/17 11/07/17 05:59 05:59 05:59 Intake Total 1667 900 500 Balance 1667 900 500 Physical Exam - Physical Exam General Appearance: WD/WN, alert EENT: No scleral icterus (R), No scleral icterus (L) Respiratory: lungs clear Cardiac/Chest: regular rate, rhythm, No edema Abdomen: normal bowel sounds, non-tender, soft Skin: normal color Neuro/Psych: no motor/sensory deficits ICD10 Worksheet Patient Problems: Problems Problem Status Onset Abnormal liver function test Acute Fever Acute
--- NOTE | 2017-11-06 18:04 | HOSPPROG ---
Hospitalist Progress Note Assessment/Plan: DIAGNOSES: -Acute cholecystitis -Choledocholithiasis -presence of bile duct stent, uncertain relative location of stent and stone(s) -pancreatic CA Clinically she is responding well to antibiotic therapy. It is recommended that she have stones removed in stent replaced. Dr. Merrill in Dr. Madera are working to try and come up with a schedule so that can be done, the patient's choices to trying to underwent anesthesia. Hopefully we can get this done tomorrow or early Monday, if not it may be reasonable to discharge her and have her come back in at a later time to take care of the procedures. I reviewed the situation in detail with the patient and her during 2 visits today, answered their questions. I personal reviewed her situation with Dr. Garfield Madera and Dr. Bender and all are in agreement in terms of recommendation for both cholecystectomy, stone removal, stent replacement. PLANS: -continue current antibiotics -await scheduling progress and either do procedure next air to or consider discharging her and having her come back for procedures SUBJECTIVE: overall her symptoms are notably better here after a couple days of antibiotics. She feels quite well and is eating well. No chills or sweats, very little pain. OBJECTIVE Vitals reviewed: Stable without fever Aws Architect, my review: Exam: alert oriented skin warm dry color ok resps not labored lungs clear BSs heart regular abd soft nondistended nontender, bowel sounds present limbs warm, no edema iv site ok Laboratory data: Stable anemia, platelets improved Liver enzymes and bilirubin stable, rest of chemistry unremarkable Microbiology data: No growth in blood cultures to date Radiology studies: I reviewed the reports of her MRI, nuclear imaging, and ultrasound Objective: Vital Signs Temp Pulse Resp BP Pulse Ox 36.6 C 80 18 142/83 H 96 11/06/17 15:25 11/06/17 15:25 11/06/17 15:25 11/06/17 15:25 11/06/17 15:25 Laboratory Results 11/06/17 06:20 11/06/17 06:20 11/05/17 11/06/17 11/07/17 06:59 06:59 06:59 Intake Total 1000 900 500 Balance 1000 900 500 - Time Spent With Patient Time Spent with Patient: greater than 35 minutes Time Spent with Patient: Greater than 35 minutes spent on this patients care, greater than 50% of time spent counseling, educating, and coordinating care regarding the above mentioned plan. ICD10 Worksheet Patient Problems: Problems Problem Status Onset Abnormal liver function test Acute Fever Acute
[2017-11-06] MEDS: PANTOPRAZOLE SODIUM 40 MG TAB PO SCH (20:23)
[2017-11-07] MEDS: clonazePAM 0.5 MG TAB PO PRN (01:10)
[2017-11-07] MEDS: ACETAMINOPHEN 325 MG TAB PO PRN (01:11)
[2017-11-07] MEDS: LEVOTHYROXINE 125 MCG TAB PO SCH (05:07)
[2017-11-07 05:20] LABS: % IMMATURE GRANULYOCYTES 0.2 % (0.0-1.1); ABSOLUTE IMMATURE GRANULOCYTES 0.01 10^3/uL (0.00-0.10); ADD DIFF? NO; ADD MORPH? NO; ADD SCAN? NO; ATYPICAL LYMPHOCYTE FLAG 30 (0-99); FRAGMENT RBC FLAG 0 (0-99); HEMATOCRIT 32.4 % (38.0-47.0); HEMOGLOBIN 11.6 g/dL (12.6-16.3); LEFT SHIFT FLG 0 (0-99); LIPEMIA HEMOLYSIS FLAG 90 (0-99); MEAN CELL HEMOGLOBIN 35.8 pg (27.9-34.1); MEAN CELL HEMOGLOBIN CONCENTR. 35.8 g/dL (32.4-36.7); MEAN PLATELET VOLUME 10.1 fL (8.7-11.7); PLATELET CLUMPS FLAG 0 (0-99); PLATELET COUNT 141 10^3/uL (150-400); RED BLOOD CELL COUNT 3.24 10^6/uL (4.18-5.33); RED CELL DISTRIBUTION WIDTH 16.3 % (11.5-15.2)
[2017-11-07 06:17] LABS: ALANINE AMINOTRANSFERASE 106 IU/L (9-52); ALBUMIN 3.3 g/dL (3.5-5.0); ALKALINE PHOSPHATASE 196 IU/L (38-126); ANION GAP 9 mEq/L (8-16); ASPARTATE AMINOTRANSFERASE 83 IU/L (14-46); BILIRUBIN,TOTAL 0.6 mg/dL (0.1-1.4); CALCIUM 9.3 mg/dL (8.5-10.4); CARBON DIOXIDE 26 mEq/l (22-31); CHLORIDE 107 mEq/L (97-110); CREATININE 0.5 mg/dL (0.6-1.0); GLOMERULAR FILTRATION RATE > 60; GLUCOSE 125 mg/dL (70-100); POTASSIUM 3.9 mEq/L (3.5-5.2); SODIUM 142 mEq/L (134-144); TOTAL PROTEIN 6.2 g/dL (6.3-8.2)
[2017-11-07] MEDS: UREA 40% CREAM TP SCH (10:58)
--- NOTE | 2017-11-07 12:51 | SOAPPROG ---
DESTINY Progress Note Assessment/Plan: Assessment: E&M pancreatic cancer * Cholecystitis with cystic duct obstruction from stone: Like cause of fever and decreased appetite. Will probably need an intervention or the problem with continue to recur especially with chemotherapy. Her cancer is under good control and her labs are adequate to due the procedure sooner than later. * * Pancreatic cancer: day 19 of CAPOX; last PET shows disease under good control. Counts adequate. If she had surgery, would probably delay start of next therapy by a week or two but a good window to consider doing it now. Dr. Bender will see her tomorrow. Patient had no new questions about dual procedures that are planned. Plan: ERCP/stent change later today followed by lap/christiane if technically feasible. Subjective: Had a bout of diarrhea this AM Objective: Vital Signs Temp Pulse Resp BP Pulse Ox 36.6 C 82 16 145/87 H 95 11/07/17 07:32 11/07/17 07:32 11/07/17 07:32 11/07/17 07:32 11/07/17 07:32 Laboratory Results 11/07/17 05:00 11/07/17 05:00 11/05/17 11/06/17 11/07/17 23:59 23:59 23:59 Intake Total 1650 500 Balance 1650 500 Physical Exam - Physical Exam General Appearance: alert, anxiety Neuro/Psych: oriented x 3 ICD10 Worksheet Patient Problems: Problems Problem Status Onset Abnormal liver function test Acute Fever Acute
[2017-11-07] MEDS ORDERED: IOTHALAMATE MEG (CONRAY) 50 ML VIAL IV ONE (13:54)
[2017-11-07] MEDS: LR 1,000 ML IV SCH (15:01)
[2017-11-07] MEDS ORDERED: MIDAZOLAM 2 MG/2 ML VIAL IVP ONE (17:01)
[2017-11-07] MEDS ORDERED: LIDOCAINE 1% 300 MG/30 ML SDV ONE (17:03)
[2017-11-07] MEDS ORDERED: BUPIVACAINE 0.5% 30 ML SDV ONE (17:03)
--- NOTE | 2017-11-07 17:04 | PDANEPAE ---
ANE Past Medical History - Cardiovascular History Hx Hypertension: No Hx Arrhythmias: No Hx Chest Pain: No Hx Coronary Artery / Peripheral Vascular Disease: No Hx CHF / Valvular Disease: No Hx Palpitations: No - Pulmonary History Hx COPD: No Hx Asthma/Reactive Airway Disease: No Hx Recent Upper Respiratory Infection: No Hx Oxygen in Use at Home: No Hx Sleep Apnea: No Sleep Apnea Screening Result - Last Documented: Negative - Endocrine History Hx Diabetes: No Hypothyroid: Yes Hyperthyroid: No Obesity: no - Chronic Pain History Chronic Pain: No ANE Review of Systems Review of Systems: - Exercise capacity METS (RN): 4 METS ANE Patient History - Allergies Allergies/Adverse Reactions: Penicillins Allergy (Verified 07/17/17 08:20) Rash - Home Medications Home Medications: Levothyroxine [Synthroid 125 mcg (*)] 125 mcg PO DAILY06 11/29/16 [Last Taken ] Ondansetron Odt [Zofran Odt 4 mg (*)] 8 mg PO DAILY PRN 07/17/17 [Last Taken Unknown] Prochlorperazine Maleate [Compazine 10mg (*)] 10 mg PO DAILY PRN 07/17/17 [Last Taken 3 Days Ago ~10/31/17] Urea 40% [Urea Cream (*)] 1 silvio TP DAILY 07/17/17 [Last Taken Unknown] clonazePAM [Klonopin (*)] 0.5 mg PO HS PRN 07/17/17 [Last Taken 11/02/17] Capecitabine [Xeloda (*)] 1,000 mg PO BID PRN 11/03/17 [Last Taken 10/29/17] Herbals/Supplements -Info Only 1 ea PO DAILY 11/03/17 [Last Taken Unknown] Loperamide HCl [Imodium 2 mg (*)] 2 mg PO PRN PRN 11/03/17 [Last Taken 11/03/17 09:00] Omeprazole [Prilosec 20 mg] 20 mg PO HS 11/03/17 [Last Taken 11/02/17] Pertzye Capsule 1 ea PO TIDMEAL PRN 11/03/17 [Last Taken 11/03/17] - NPO status NPO Since - Liquids (Date): 11/07/17 NPO Since - Liquids (Time): 00:00 NPO Since - Solids (Date): 11/07/17 NPO Since - Solids (Time): 00:00 - Anes Hx Anes Hx: post operative nausea and vomiting - Smoking Hx Smoking Status: Never smoked - Alcohol Use Alcohol Use: None - Family Anes Hx Family Anes Hx: none ANE Labs/Vital Signs - Labs Result Diagrams: 11/07/17 05:00 11/07/17 05:00 - Vital Signs Blood Pressure: 158/86 Heart Rate: 86 Respiratory Rate: 14 O2 Sat (%): 98 Height: 157.48 cm Weight: 43.091 kg ANE Physical Exam - Airway Neck exam: FROM Mallampati Score: Class 2 Mouth exam: normal dental/mouth exam - ASA Status ASA Status: III ANE Anesthesia Plan Anesthesia Plan: general endotracheal anesthesia
[2017-11-07] MEDS ORDERED: REMIFENTANIL HCL 1 MG VIAL ONE ×2 (17:23→19:43)
[2017-11-07] MEDS ORDERED: DEXAMETHASONE 4 MG/ML VIAL ONE (17:23)
[2017-11-07] MEDS ORDERED: ONDANSETRON 4 MG/2 ML VIAL ONE (17:23)
[2017-11-07] MEDS ORDERED: PROPOFOL 200 MG/20 ML VIAL ONE (17:23)
[2017-11-07] MEDS ORDERED: fentaNYL 100 MCG/2 ML INJ ONE ×2 (17:23→20:56)
[2017-11-07] MEDS ORDERED: PROPOFOL/EMULSION 500 MG/50 ML BOTTLE IV ONE ×2 (17:23→19:43)
[2017-11-07] MEDS ORDERED: ROCURONIUM 50 MG/5 ML VIAL ONE ×2 (17:24→19:18)
[2017-11-07] MEDS ORDERED: LIDOCAINE 2% 5 ML SDV ONE (17:25)
[2017-11-07] MEDS ORDERED: LR 500 ML IV PRN (18:10)
[2017-11-07] MEDS ORDERED: PROMETHAZINE HCL 25 MG/ML INJ IVP PRN (18:10)
[2017-11-07] MEDS ORDERED: NALOXONE HCL 0.4 MG/ML INJ IVP PRN (18:10)
--- NOTE | 2017-11-07 18:57 | GIREPORT ---
[facility] Surgical Services - Endoscopy Department Patient Name: Cierra Cadena Procedure Date: 11/07/2017 5:05 PM Patient Type: Inpatient Attending MD/ ER Physician: Drew Bee MD Procedure: ERCP Indications: Elevated liver enzymes, Suspected bile duct stone(s) Patient Profile: 67 year old female with a history of pancreatic cancer with biliary stricture presents for clearance of the bile duct. Providers: Drew Bee MD Medicines: General Anesthesia Complications: No immediate complications. Estimated blood loss: Minimal. Description of Procedure: After obtaining informed consent, the scope was passed under direct vis ion. Throughout the procedure, the patient's blood pressure, pulse, and oxyg en saturations were monitored continuously. The Duodenalscope was introduc ed through the mouth, and advanced to the duodenum and used to cannulate t he bile duct. The ERCP was accomplished without difficulty. The patient tolerated the procedure well. Findings: The ERCP was passed into the esophagus and dudoenal bulb. It was initia lly not possible to advance the scope into the bulb due to a stricture at t he duodenal bulb. A regular upper scope was introduced and passed into the duodenal bulb and then beyond the stricture. A 0.035 inch long guidewir e was then placed into the duodenum. The EGD scope was withdrawn. The wire wa s backloaded into the sphincterotome and ERCP scope and the scope was adv anced to the ampulla. A biliary stent was visible on the transportation consultant film. One sten t was removed from the biliary tree using a snare. The stent was found to be partially occluded. The ERCP scope was then advanced to the ampulla. Th e biliary tree was swept with a 12-15 mm balloon starting at the bifurcat ion. Significant sludge and a few small stones were removed. was swept from the duct. All stones were removed. One 10 mm by 6 cm covered metal stent wa s placed into the common bile duct. Bile flowed through the stent. The st ent was in good position. Estimated Blood Loss: Estimated blood loss was minimal. Post Op Diagnosis: - Choledocholithiasis was found. Complete removal was accomplished by balloon extraction. - One stent was removed from the biliary tree. - The biliary tree was swept. - One covered metal stent was placed into the common bile duct. 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 Attending Participation: I personally performed the entire procedure. Drew Bee MD Drew Bee MD 11/07/2017 6:57:51 PM This report has been signed electronicallyDrew Bee MD Number of Addenda: 0 Note Initiated On: 11/07/2017 5:05 PM [email or web address]
[2017-11-07] MEDS ORDERED: KETOROLAC 30 MG/1 ML SDV ONE (20:02)
--- NOTE | 2017-11-07 20:08 | HOSPPROG ---
Hospitalist Progress Note Assessment/Plan: DIAGNOSES: -Acute cholecystitis -Choledocholithiasis -presence of bile duct stent, uncertain relative location of stent and stone(s) -pancreatic CA Again today I personally reviewed her situation with Dr. Garfield Madera and Dr. Bender. The patient today is agreeable to proceeding with cholecystectomy and stent replacement. She has now undergone ERCP with removal of stents, removal of ductal stones, sweeping of the duct and replacement of stent in the biliary system. This was well tolerated by the patient. PLANS: -continue current antibiotics -follow course clinically watching for signs of complications including pancreatitis, bleeding SUBJECTIVE: overall her symptoms are notably better here after a couple days of antibiotics. She feels quite well and is eating well. No chills or sweats, very little pain. OBJECTIVE Vitals reviewed: Mild hypertension otherwise stable without fever Exam: alert oriented skin warm dry color ok resps not labored lungs clear BSs heart regular abd soft nondistended nontender, bowel sounds present limbs warm, no edema iv site ok Laboratory data: Continued improvement of platelets, stable mild anemia Stable liver transaminases alkaline phosphatase and normal bilirubin, stable basic metabolic panel Microbiology data: No growth in blood cultures to date Objective: Vital Signs Temp Pulse Resp BP Pulse Ox 36.8 C 86 14 158/86 H 98 11/07/17 16:00 11/07/17 17:04 11/07/17 17:04 11/07/17 17:04 11/07/17 17:04 Laboratory Results 11/07/17 05:00 11/07/17 05:00 11/06/17 11/07/17 11/08/17 06:59 06:59 06:59 Intake Total 900 1250 Balance 900 1250 ICD10 Worksheet Patient Problems: Problems Problem Status Onset Abnormal liver function test Acute Fever Acute
--- NOTE | 2017-11-07 20:19 | POSTOPPROG ---
Post Op Note Date of Operation: 11/07/17 Surgeon: Ameya Madera [employer] [facility] Coordinator: Godwin Dunbar Anesthesiologist: Kong Anesthesia: GET(General Endotracheal) Pre-op Diagnosis: cholecystitis, pancreatic ca, biliary duct stent obstruction Post-op Diagnosis: same Procedure: Lap christiane - subtotal Findings: chronic cholecystisis Inf/Abcess present in the surg proc area at time of surgery?: Yes Depth: Organ Space Complications: none Specimen(s): gall bladder wall anterior
--- NOTE | 2017-11-07 20:40 | POSTANESTH ---
Post Anesthetic Evaluation Cardiovascular Status: Normal, Stable Respiratory Status: Normal, Stable Level of Consciousness/Mental Status: Can Participate in Eval Pain Control: Adequate, Prn Tx Ordered Nausea/Vomiting Control: Adequate, Prn Tx Ordered Complications Possibly Related to Anesthesia: None Noted
[2017-11-07] MEDS: fentaNYL 100 MCG/2 ML INJ IVP PRN ×2 (20:59→21:08)
[2017-11-07] MEDS: PANTOPRAZOLE SODIUM 40 MG TAB PO SCH (21:56)
--- NOTE | 2017-11-08 02:23 | GOP ---
[f rep st] OPERATIVE REPORT DATE OF OPERATION: SURGEON: Ameya Madera MD AERIAL SPRAYER: Byron Dunbar MD. ANESTHESIA: General endotracheal anesthesia. ANESTHESIOLOGIST: Dr. Mahan. PREOPERATIVE DIAGNOSIS: Pancreatic cancer with biliary duct obstruction and cholecystitis. POSTOPERATIVE DIAGNOSIS: Pancreatic cancer with biliary duct obstruction and cholecystitis. PROCEDURE PERFORMED: Laparoscopic cholecystectomy, subtotal, following endoscopic retrograde cholang iopancreatography performed by Dr. Jose Raul Bee. Please see his note for separate dictation. FINDINGS: SPECIMENS: Gallbladder to permanent pathology. INDICATIONS: This is a 67-year-old patient with a history of pancreatic cancer who presents with wha t appears to be acute cholecystitis as well as biliary stent obstruction. DESCRIPTION OF PROCEDURE: The patient was brought to the operating room after induction of endotrach eal anesthesia for her ERCP and completion of that procedure. She was placed in a supine position. Abdomen was prepped with chlorhexidine and draped sterilely. Time-out procedure was then performed a ccording to institutional standards. Local anesthetic was infused in the skin and subcutaneous tissu es of the trocar sites and open infraumbilical trocar placement was done without difficulty. The abd omen was insufflated to 15 TOR with carbon dioxide. Working trocars were placed in the subxiphoid an d right subcostal areas under direct visualization. The gallbladder was adhered to the omentum, duodenum, and to the pylorus with dense adhesions. These were taken down with judicious use of electrocautery, sharp dissection. After freeing the infundibu lum off the gallbladder, there was still a dense amount of inflammation to the garrett hepatis. A top- down approach was then used to remove the gallbladder from the gallbladder bed. Entering the gallbla dder, leaving the posterior wall in place, the gallbladder was then brought down again to the infundi bulum. We were able to get around the base of the gallbladder and use 2 Endoloops of 0 PDS suture to close and secure the duct. The gallbladder was then excised off the stump using electrocautery. Th e mucosa of the back wall of the gallbladder/liver bed as well as the stump were then cauterized. He mostasis was assured. Needle, instrument, and sponge counts were verified to be correct. The gallbl adder was placed in an Endopouch. The abdomen was irrigated and aspirated till clear and the gallbla dder was removed. Working trocars were taken out. The fascia was reapproximated with 0 Vicryl and a ll 4 ports were reapproximated at the skin level using 4 Monocryl and Dermabond. The patient was trever kened, admitted with extubation to the recovery room in stable condition. Needle, instrument, and sp onge counts verified to be correct x2. COMPLICATIONS: There were no complications. /[id number]/MODL
[2017-11-08] MEDS: LEVOTHYROXINE 125 MCG TAB PO SCH (05:36)
--- NOTE | 2017-11-08 08:57 | SOAPPROG ---
SOAP Progress Note Assessment/Plan: Assessment/Plan: POD#1 s/p subtotal cholcystectomy and biliary duct 10x6 covered stent exchange cholelithiasis with stone in the cystic duct pancreatic ca Expected post procedural discomfort and bloating OOB Clear liq diet minimal intake overnight Incisions c/d Mildly softly distended No edema Doing well Add motrin to medication regiment Adv to fulls/regular later if tolerating clears Anticipate d/c 11/0911/08/17 08:54 Objective: Vital Signs Temp Pulse Resp BP Pulse Ox 36.9 C 91 16 149/76 H 96 11/08/17 07:48 11/08/17 07:48 11/08/17 07:48 11/08/17 07:48 11/08/17 07:48 Laboratory Results 11/07/17 05:00 11/07/17 05:00 11/07/17 11/08/17 11/09/17 05:59 05:59 05:59 Intake Total 1250 2610 Output Total 27 Balance 1250 2583 ICD10 Worksheet Patient Problems: Problems Problem Status Onset Abnormal liver function test Acute Fever Acute
--- NOTE | 2017-11-08 09:04 | SOAPPROG ---
SOAP Progress Note Assessment/Plan: Assessment: 1. Abn LFTs, fever, Abn imaging biliary tree - s/p MRCP and lapchole - feeling sore this AM Plan: 1. monitor abdominal exam 2. complete 10-14 days of antibiotics 3. follow-up with oncology - will sign off, call with questions 11/08/17 09:01 Subjective: CC: f/u cholangitis and cholecystits S: no fever overnight abdomen is sore no nausea no vomiting feels like eating Objective: Vital Signs Temp Pulse Resp BP Pulse Ox 36.9 C 91 16 149/76 H 96 11/08/17 07:48 11/08/17 07:48 11/08/17 07:48 11/08/17 07:48 11/08/17 07:48 Laboratory Results 11/07/17 05:00 11/07/17 05:00 11/07/17 11/08/17 11/09/17 05:59 05:59 05:59 Intake Total 1250 2610 Output Total 27 Balance 1250 2583 Physical Exam - Physical Exam General Appearance: alert, mild distress EENT: PERRL/EOMI, No scleral icterus (R), No scleral icterus (L) Neck: non-tender, full range of motion, supple Respiratory: chest non-tender, lungs clear, normal breath sounds, No respiratory distress Cardiac/Chest: normal peripheral pulses, regular rate, rhythm, No edema Abdomen: normal bowel sounds, soft, No non-tender, No organomegaly Skin: normal color, warm/dry, No jaundice Extremities: normal range of motion, non-tender Neuro/Psych: no motor/sensory deficits, alert, normal mood/affect ICD10 Worksheet Patient Problems: Problems Problem Status Onset Abnormal liver function test Acute Fever Acute
[2017-11-08] MEDS: HYDROCODONE/APAP 5/325 TAB PO PRN ×2 (09:45→19:59)
[2017-11-08] MEDS: ENOXAPARIN 40 MG/0.4 ML SYR SC SCH (09:45)
[2017-11-08] MEDS: UREA 40% CREAM TP SCH (10:06)
--- NOTE | 2017-11-08 10:45 | SOAPPROG ---
DESTINY Progress Note Assessment/Plan: Assessment: - Pancreatic CA - stable disease at last evaluation point - biliary duct stone - Cholelithiasis This is POD#1 from her lap christiane and ERCP. She is sitting up and taking clear liquids by mouth. She has expected post op pain. If she continues to do well, I hope that she can be discharged in the next 24 hours. Her chemo is on hold for the moment pending recovery from her surgery. I would anticipate the the hold will last 1-2 weeks. Plan - Assess ADLs - Assess PO intake - Hope for d/c in the next 24 hours Subjective: Post op pain but sitting up, smiling, and taking clear liquids Objective: Vital Signs Temp Pulse Resp BP Pulse Ox 36.9 C 91 16 149/76 H 96 11/08/17 07:48 11/08/17 07:48 11/08/17 07:48 11/08/17 07:48 11/08/17 07:48 Laboratory Results 11/07/17 05:00 11/07/17 05:00 11/06/17 11/07/17 11/08/17 23:59 23:59 23:59 Intake Total 1650 2029 1080 Output Total 25 2 Balance 1650 20048 Physical Exam - Physical Exam General Appearance: alert, mild distress Respiratory: lungs clear Cardiac/Chest: regular rate, rhythm Abdomen: normal bowel sounds Skin: warm/dry ICD10 Worksheet Patient Problems: Problems Problem Status Onset Abnormal liver function test Acute Fever Acute
[2017-11-08] MEDS: LR 1,000 ML IV SCH (15:14)
--- NOTE | 2017-11-08 17:49 | HOSPPROG ---
Hospitalist Progress Note Assessment/Plan: DIAGNOSES: -Acute cholecystitis -Choledocholithiasis -presence of bile duct stent, uncertain relative location of stent and stone(s) -pancreatic CA She is now status post ERCP with removal and replacement of stent and removal of ductal stones, as well as status post cholecystectomy. No evidence of complications of either procedure and taking clear liquids well anticipate potential for discharge tomorrow -continue current antibiotics -follow course clinically watching for signs of complications including pancreatitis, bleeding SUBJECTIVE: Some mild abdominal bloating with mild discomfort. Otherwise feels quite well. Taking clear fluids well. No fever symptoms some flatus no bowel movement yet OBJECTIVE Vitals reviewed: Mild hypertension otherwise stable without fever Exam: alert oriented skin warm dry color ok resps not labored lungs clear BSs heart regular abd soft nondistended nontender, bowel sounds present limbs warm, no edema iv site ok Microbiology data: No growth in blood cultures to date Objective: Vital Signs Temp Pulse Resp BP Pulse Ox 36.8 C 98 14 153/83 H 95 11/08/17 16:11 11/08/17 16:11 11/08/17 16:11 11/08/17 16:11 11/08/17 16:11 Laboratory Results 11/07/17 05:00 11/07/17 05:00 11/07/17 11/08/17 11/09/17 06:59 06:59 06:59 Intake Total 1250 2610 Output Total 27 Balance 1250 2583 ICD10 Worksheet Patient Problems: Problems Problem Status Onset Abnormal liver function test Acute Fever Acute
[2017-11-08] MEDS: PANTOPRAZOLE SODIUM 40 MG TAB PO SCH (19:59)
[2017-11-09] MEDS: HYDROCODONE/APAP 5/325 TAB PO PRN ×3 (01:13→17:04)
[2017-11-09] MEDS: LEVOTHYROXINE 125 MCG TAB PO SCH (05:47)
[2017-11-09] MEDS: LR 1,000 ML IV SCH (05:48)
[2017-11-09] MEDS: ENOXAPARIN 40 MG/0.4 ML SYR SC SCH (09:36)
[2017-11-09] MEDS: UREA 40% CREAM TP SCH (09:46)
[2017-11-09] MEDS ORDERED: metroNIDAZOLE 500 MG TAB PO SCH (11:30)
--- NOTE | 2017-11-09 12:19 | SOAPPROG ---
DESTINY Progress Note Assessment/Plan: Assessment: - Pancreatic CA - stable disease at last evaluation point - biliary duct stone - Cholelithiasis This is POD#2 from her lap christiane and ERCP. She is sitting up and taking full liquids. Hope to D/C to home later today Her chemo is on hold for the moment pending recovery from her surgery. I would anticipate the the hold will last 1-2 weeks. Plan -hope for D/C today to home. F/U with me next week. Subjective: Ate chunky chicken soup Objective: Vital Signs Temp Pulse Resp BP Pulse Ox 37.1 C 78 16 158/86 H 95 11/09/17 08:00 11/09/17 08:00 11/09/17 08:00 11/09/17 08:00 11/09/17 08:00 Laboratory Results 11/07/17 05:00 11/07/17 05:00 11/07/17 11/08/17 11/09/17 23:59 23:59 23:59 Intake Total 2029 1630 1056 Output Total 1202 1650 Balance 2004 428 -594 Physical Exam - Physical Exam General Appearance: no apparent distress Neuro/Psych: alert, oriented x 3 ICD10 Worksheet Patient Problems: Problems Problem Status Onset Abnormal liver function test Acute Fever Acute
[2017-11-09 12:52] VITALS: RESP 14
--- NOTE | 2017-11-09 13:35 | SOAPPROG ---
SOAP Progress Note Assessment/Plan: Assessment/Plan: POD#2 s/p subtotal cholcystectomy and biliary duct 10x6 covered stent exchange cholelithiasis with stone in the cystic duct pancreatic ca Expected post procedural discomfort and bloating OOB Clear liq diet minimal intake overnight Incisions c/d Mildly softly distended No edema Doing well Add motrin to medication regiment Adv to fulls/regular later if tolerating clears Anticipate d/c 11/0911/08/17 08:54 11/09/17 13:35 Objective: Vital Signs Temp Pulse Resp BP Pulse Ox 36.9 C 103 H 14 145/84 H 95 11/09/17 12:00 11/09/17 12:00 11/09/17 12:00 11/09/17 12:00 11/09/17 12:00 Laboratory Results 11/07/17 05:00 11/07/17 05:00 11/08/17 11/09/17 11/10/17 05:59 05:59 05:59 Intake Total 2610 1606 1681 Output Total 27 2600 500 Balance 2583 -994 1181 ICD10 Worksheet Patient Problems: Problems Problem Status Onset Abnormal liver function test Acute Fever Acute
[2017-11-09 15:39] VITALS: BP 135/81; PULSE 92; TEMP 98.3; O2SAT 96
--- NOTE | 2017-11-09 15:58 | ASMTCMCOM ---
CM Note CM Note Notes: Pt had christiane 11/07 and is ready for DC today. Pt has no DC needs. Date Signed: 11/09/2017 03:57 PM Electronically Signed By:Roma Burger LCSW
[2017-11-10] MEDS ORDERED: CAPECITABINE 500 MG TAB PO PRN (09:00)
--- NOTE | 2017-11-10 11:19 | ASDISCHSUM ---
Discharge Information Plan Status: Medically Cleared to Leave: Discharge Date:11/09/2017 05:28 PM D/C Disposition: ADT D/C Disposition:Home, Routine, Self-Care Projected Discharge Date:11/09/2017 05:28 PM Transportation at D/C: Discharge Delay Reason: Follow-Up Date:11/09/2017 05:28 PM Discharge Slot: Final Diagnosis: Placement Information Patient Contact Information Contact Name:JADYN Relationship: Address:[address] [place] [address] City:[place] Alternate Phone: State/Zip Code:[place] [address] Email: Financial Information Financial Class: Primary Plan Desc:MEDICARE INPATIENT Primary Plan Number:[id number] Secondary Plan Desc:[employer]/M[employer] SUPPLEMENT Secondary Plan Number:[id number] Assessment Information [facility] CM Progress Note CM Note CM Note Notes: Pt with hx of pancreatic ca admitted for cholecystitis. At last admission in June pt DC'd with no needs. Pt's current DC needs are unclear. C/M will continue to follow. Date Signed: 11/04/2017 10:05 AM Electronically Signed By:Roma Burger LCSW [facility] CM Progress Note CM Note CM Note Notes: Discussed case with primary RN. Patient may need dual procedure (ERCP with Cholecystectomy). Discharge plan unclear at this time. Per RN, patient does have a very supportive . Case Management will continue to follow medical plan and assess for needs. Date Signed: 11/06/2017 04:37 PM Electronically Signed By:Molly Plunkett RN [facility] CM Progress Note CM Note CM Note Notes: Pt had christiane 11/07 and is ready for DC today. Pt has no DC needs. Date Signed: 11/09/2017 03:57 PM Electronically Signed By:Roma Burger LCSW Intervention Information
== END 2017-11-09 17:28 | disposition home or self-care (01) | DRG 418 ==
LOC: OBSVTOIN 15:33 → F1N 18:36
PROVIDERS: ADMIT Hospitalist; ATTEND Hospitalist
PROC: 0FC98ZZ Extirpation of Matter from Common Bile Duct, Via Natural or Artificial Opening Endoscopic (ICD-10-PCS; principal; 2017-11-07 17:15)
PROC: 0FT44ZZ Resection of Gallbladder, Percutaneous Endoscopic Approach (ICD-10-PCS; principal; 2017-11-07 17:15)
PROC: 0F798DZ Dilation of Common Bile Duct with Intraluminal Device, Via Natural or Artificial Opening Endoscopic (ICD-10-PCS; principal; 2017-11-07 17:15)
PROC: 0FPB8DZ Removal of Intraluminal Device from Hepatobiliary Duct, Via Natural or Artificial Opening Endoscopic (ICD-10-PCS; principal; 2017-11-07 17:15)
DX: K80.43 Calculus of bile duct with acute cholecystitis with obstruction (principal); C25.9 Malignant neoplasm of pancreas, unspecified; E03.9 Hypothyroidism, unspecified
CPT/HCPCS: 96374; A9537; C1769; C1874; J1100; J1642; J1650; J1885; J1956; J2250; J2405; J2704; J3010; Q9961

== ENCOUNTER → 2017-11-21 | Outpatient (CLI) | payer OTHER, MEDICARE | LOC: FIMAGING 16:30 | PROVIDERS: ATTEND Internal Medicine Gastroenterology | DX: C25.9 Malignant neoplasm of pancreas, unspecified (principal); K86.89 Other specified diseases of pancreas; Z96.89 Presence of other specified functional implants; Z90.49 Acquired absence of other specified parts of digestive tract ==

== ENCOUNTER → 2017-11-27 | Outpatient (CLI) | payer OTHER, MEDICARE ==
[~2017-11-27] MED LIST changes: +IOPAMIDOL (ISOVUE-300) 100 ML BTL ONE; -IOPAMIDOL (ISOVUE-300) 50 ML VIAL IV ONE
== END ==
LOC: FIMAGING 08:49
PROVIDERS: ATTEND Internal Medicine Gastroenterology
DX: K83.1 Obstruction of bile duct (principal); K76.9 Liver disease, unspecified; C25.9 Malignant neoplasm of pancreas, unspecified; Z90.49 Acquired absence of other specified parts of digestive tract
CPT/HCPCS: 74177; Q9967

== ENCOUNTER 2017-12-08 08:00 | Day surgery (SDC) | payer OTHER, MEDICARE ==
[2017-12-08] MEDS ORDERED: MEPERIDINE 25 MG/ML SYR IVP PRN (08:21)
[2017-12-08] MEDS ORDERED: MIDAZOLAM 2 MG/2 ML VIAL IVP PRN (08:21)
[2017-12-08] MEDS ORDERED: FLUMAZENIL 0.5 MG/5 ML MDV IVP PRN (08:21)
[2017-12-08] MEDS ORDERED: PROTAMINE SULFATE 50 MG/5 ML VIAL IVP PRN (08:21)
[2017-12-08] MEDS ORDERED: ALTEPLASE 2 MG VIAL IVP PRN (08:21)
[2017-12-08] MEDS ORDERED: fentaNYL 100 MCG/2 ML INJ IVP PRN (08:21)
[2017-12-08] MEDS ORDERED: GLUCAGON HCL 1 MG VIAL IVP PRN (08:21)
[2017-12-08] MEDS ORDERED: HEPARIN 10,000 UNIT/10 ML MDV (1,000 UNIT/ML) IVP PRN (08:21)
[2017-12-08] MEDS ORDERED: NALOXONE HCL 0.4 MG/ML INJ IVP PRN (08:21)
[2017-12-08] MEDS ORDERED: DEXMEDETOMIDINE IN 0.9 % NACL 50 ML IV SCH (08:30)
[2017-12-08] MEDS ORDERED: NS 1,000 ML IV SCH (08:30)
[2017-12-08] MEDS ORDERED: ONDANSETRON 4 MG/2 ML VIAL ONE (08:41)
--- NOTE | 2017-12-08 08:42 | PDGENHP ---
History & Physical Chief Complaint: PANCREATIC CA; BILIARY OBSTRUCTION History of Present Illness: S/P PREVIOUS STENT PLACEMENT X 2, NOW ALL REMOVED. TWO POINTS OF OBSTRUCTION. CT SHOWS BILATERAL BILIARY DILATATION Pertinent Past, Social, Family History: GB SX, MYOMECTOMY, ERCP Relevant Physical Exam: DIALATED DUCTS Cardiorespiratory Assessment: RRR, CTA
--- NOTE | 2017-12-08 08:42 | PDPROPOC ---
Sedation Plan of Care Sedation Plan of Care: vital signs stable, mental status noted, patient educated of risks, benefits, alternatives, patient can tolerate sedation ASA Classification: ASA 2 Planned drugs: fentanyl, midazolam, other (PRECEDEX) Mallampati Score: Class 1 Mallampati Reference Image: Patient passed 3-3-2 rule?: Yes
[2017-12-08 09:29] LABS: INR 1.1 (0.83-1.16); PROTIME(PATIENT) 14.4 SEC (12.0-15.0)
[2017-12-08] MEDS ORDERED: IOPAMIDOL (ISOVUE-300) 100 ML BTL ONE (10:12)
[2017-12-08] MEDS ORDERED: LIDOCAINE 1% 300 MG/30 ML SDV ONE (10:12)
[2017-12-08] MEDS ORDERED: MEPERIDINE 25 MG/ML SYR ONE (11:02)
[2017-12-08] MEDS ORDERED: ACETAMINOPHEN 325 MG TAB PO PRN (11:53)
[2017-12-08] MEDS ORDERED: ONDANSETRON 4 MG/2 ML VIAL IVP PRN (11:53)
--- NOTE | 2017-12-08 11:55 | PDRADPN ---
Radiology Procedure Note Date of Procedure: 12/08/17 Radiologist: Denice Montanez Anesthesia: IV Sedation Pre-op Diagnosis: pancreatic CA Post-op Diagnosis: same Indication: biliary obstruction. failed endoscopy Procedure: PTC with drain placement Finding(s): hilar tumor very hard to get through. unsuccessful despite of prolonged attempt. separate right and left systems; drain in rt only. Inf/Abcess present in the surg proc area at time of surgery?: No Complications: none Drains: T-Tube
[2017-12-08 13:33] VITALS: RESP 16
[2017-12-08 14:40] VITALS: BP 118/69; O2SAT 97
[2017-12-08 15:31] VITALS: PULSE 105; TEMP 97.2
== END 2017-12-08 14:50 | disposition home or self-care (01) ==
LOC: FIMAGING 08:00 → F3E 11:15 → UNDOADMIN 11:15 → FIMAGING 14:50
PROVIDERS: ATTEND Internal Medicine Gastroenterology
PROC: BF101ZZ Fluoroscopy of Bile Ducts using Low Osmolar Contrast (ICD-10-PCS; principal; 2017-12-08 12:00)
PROC: 0F9530Z Drainage of Right Hepatic Duct with Drainage Device, Percutaneous Approach (ICD-10-PCS; principal; 2017-12-08 12:00)
PROC: BF4CZZZ Ultrasonography of Hepatobiliary System, All (ICD-10-PCS; principal; 2017-12-08 12:00)
DX: K83.1 Obstruction of bile duct (principal); C25.9 Malignant neoplasm of pancreas, unspecified
CPT/HCPCS: 47532; 99152; 99153; C1769; C1894; J1644; J1956; J2250; J2310; J2405; J3010; Q9967

== ENCOUNTER 2017-12-11 08:59 | Day surgery (SDC) | payer OTHER, MEDICARE ==
[2017-12-11 09:56] LABS: PLATELET COUNT 271 10^3/uL (150-400)
[2017-12-11] MEDS ORDERED: GLUCAGON HCL 1 MG VIAL IVP PRN (10:01)
[2017-12-11] MEDS ORDERED: HEPARIN 10,000 UNIT/10 ML MDV (1,000 UNIT/ML) IVP PRN (10:01)
[2017-12-11] MEDS ORDERED: NALOXONE HCL 0.4 MG/ML INJ IVP PRN (10:01)
[2017-12-11] MEDS ORDERED: FLUMAZENIL 0.5 MG/5 ML MDV IVP PRN (10:01)
[2017-12-11] MEDS ORDERED: fentaNYL 100 MCG/2 ML INJ IVP PRN (10:01)
[2017-12-11] MEDS ORDERED: MIDAZOLAM 2 MG/2 ML VIAL IVP PRN (10:01)
[2017-12-11] MEDS ORDERED: MEPERIDINE 25 MG/ML SYR IVP PRN (10:01)
[2017-12-11] MEDS ORDERED: ALTEPLASE 2 MG VIAL IVP PRN (10:01)
[2017-12-11] MEDS ORDERED: PROTAMINE SULFATE 50 MG/5 ML VIAL IVP PRN (10:01)
[2017-12-11 10:11] VITALS: BP 138/83; PULSE 75; RESP 18; TEMP 98.1; O2SAT 95
[2017-12-11] MEDS ORDERED: NS 1,000 ML IV SCH (10:15)
[2017-12-11] MEDS ORDERED: DEXMEDETOMIDINE/NS 4MCG/ML 50 ML BTL IV ONE (10:35)
[2017-12-11] MEDS ORDERED: IOPAMIDOL (ISOVUE-300) 100 ML BTL ONE (11:37)
== END 2017-12-11 12:30 | disposition home or self-care (01) ==
LOC: FIMAGING 08:59
PROVIDERS: ATTEND Radiology Diagnostic Radiology
PROC: BF40ZZZ Ultrasonography of Bile Ducts (ICD-10-PCS; principal; 2017-12-11)
DX: K83.1 Obstruction of bile duct (principal)
CPT/HCPCS: J2250; J2310; J3010; Q9967

== ENCOUNTER 2017-12-14 15:25 | Inpatient (IN) | payer OTHER, MEDICARE ==
--- NOTE | 2017-12-14 15:52 | EDPHY ---
H & P Time Seen by Provider: 12/14/17 15:52 HPI/ROS: CHIEF COMPLAINT: Fever HISTORY OF PRESENT ILLNESS: 67-year-old woman with a history of pancreatic cancer got a stent placed 1 week ago last Monday and today developed fever. Associated with a little more pain at the site of her stent in her abdomen. Not associated with cough or trouble breathing or vomiting or diarrhea. No skin changes noted. Symptoms moderate to severe and were not present yesterday. REVIEW OF SYSTEMS: Eye: no change in vision ENT: no sore throat Cardiac: no chest pain or syncope Pulmonary: no cough or SOB Abdomen: No vomiting or diarrhea, she has some ongoing abdominal pain related to the tumor which is unchanged today. Musculoskeletal: Some back pain and right flank pain related to her stent which is positional. Skin: no rash Neuro: no headache Constitutional: HPI : no urinary symptoms except for chronically darker urine, unchanged. No dysuria A comprehensive 10 point review of systems is otherwise negative aside from elements mentioned in the history of present illness. PAST MEDICAL HISTORY: Pancreatic cancer and thyroid disorder Social history: Oncologist is Dr. Yo Bender, PCP is Dr. Monica Rojas. Her penicillin allergy was a rash 40 years ago. General Appearance: Alert and conversant, cooperative. Eyes: Scleral icterus ENT, Mouth: Normal mucous membranes. Respiratory: Normal respiratory effort, breath sounds equal, lungs are clear to auscultation. Cardiovascular: Regular rate and rhythm. Gastrointestinal: Diffuse abdominal tenderness, but no rebound or guarding. Neurological: Alert, face symmetric, normal motor and sensory in extremities. Skin: Warm and dry, no rashes. The dressing over the right-sided drain is not bloody and there is no pus or drainage. The dressing is not completely removed but the surrounding skin is not red. Musculoskeletal: No peripheral edema. Psychiatric: Not agitated. Emergency Department course/MDM: Blood culture x2, serum lactate, chest x-ray and urinalysis. Without obvious other source would treat empirically for cholangitis or biliary infection with meropenem IV fluids and admission. 1641: Lactate normal, not hypotensive. IV fluids and meropenem 1 g IV, discussed with hospitalist Dr. Ted Cline. Does not appear to have severe sepsis or septic shock. Smoking Status: Never smoked Constitutional: Initial Vital Signs Temperature (C) 38.5 C H 12/14/17 15:45 Heart Rate 110 H 12/14/17 15:45 Respiratory Rate 17 12/14/17 15:45 Blood Pressure 125/69 H 12/14/17 15:45 O2 Sat (%) 94 12/14/17 15:45 O2 Delivery Mode Room Air Allergies/Adverse Reactions: Penicillins Allergy (Verified 12/14/17 15:43) Rash Home Medications: Medication Instructions Recorded Levothyroxine [Synthroid 125 mcg 125 mcg PO DAILY06 11/29/16 (*)] Ondansetron Odt [Zofran Odt 4 mg 8 mg PO DAILY PRN 07/17/17 (*)] Prochlorperazine Maleate 10 mg PO DAILY PRN 07/17/17 [Compazine 10mg (*)] clonazePAM [Klonopin (*)] 0.5 mg PO HS PRN 07/17/17 Herbals/Supplements -Info Only 1 ea PO DAILY 11/03/17 Loperamide HCl [Imodium 2 mg (*)] 2 mg PO PRN PRN 11/03/17 Omeprazole [Prilosec 20 mg] 20 mg PO HS 11/03/17 Pertzye Capsule 1 ea PO PRN PRN 11/03/17 LORazepam [Ativan (*)] 0.5 mg PO BID 12/08/17 Hydrocodone/Acetaminophen [[place] 1 each PO Q6 PRN 12/14/17 5/325 (*)] Polyethylene Glycol 3350 [Miralax 17 gm PO DAILY PRN 12/14/17 17 gm (*)] oxyCODONE HCL [Oxycontin] 10 mg PO BID 12/14/17 Medical Decision Making - Diagnostics Imaging Results: Imaging Impressions Chest X-Ray 12/14/17 16:05 Impression: No active cardiopulmonary disease seen.. Critical Care Time: Critical care time spent by me, Dr. Lawson, exclusively with the care of this patient was 30 minutes, exclusive of PA or FITNESS/WELLNESS DIRECTOR time and exclusive of separate procedures. The organ system at risk was infectious, gastroenterology and I ordered IV fluids, multiple diagnostics, broad-spectrum meropenem antibiotic, discussion with hospitalist to stabilize the patient and prevent worsening of the patient's condition. - Data Points Laboratory Results: Laboratory Results 12/14/17 16:15 12/14/17 16:15 0112/14/17 12/14/17 16:15 16:15 16:15 WBC 14.60 10^3/uL H 10^3/uL (3.80-9.50) RBC 3.19 10^6/uL L 10^6/uL (4.18-5.33) Hgb 10.4 g/dL L g/dL (12.6-16.3) Hct 29.4 % L % (38.0-47.0) MCV 92.2 fL fL (81.5-99.8) MCH 32.6 pg pg (27.9-34.1) MCHC 35.4 g/dL g/dL (32.4-36.7) RDW 14.6 % % (11.5-15.2) Plt Count 285 10^3/uL 10^3/uL (150-400) MPV 9.7 fL fL (8.7-11.7) Neut % (Auto) 85.5 % H % (39.3-74.2) Lymph % (Auto) 7.0 % L % (15.0-45.0) Mcdonald % (Auto) 5.8 % % (4.5-13.0) Eos % (Auto) 0.1 % L % (0.6-7.6) Baso % (Auto) 0.3 % % (0.3-1.7) Nucleat RBC Rel Count 0.0 % % (0.0-0.2) Absolute Neuts (auto) 12.49 10^3/uL H 10^3/uL (1.70-6.50) Absolute Lymphs (auto) 1.02 10^3/uL 10^3/uL (1.00-3.00) Absolute Monos (auto) 0.85 10^3/uL H 10^3/uL (0.30-0.80) Absolute Eos (auto) 0.01 10^3/uL L 10^3/uL (0.03-0.40) Absolute Basos (auto) 0.04 10^3/uL 10^3/uL (0.02-0.10) Absolute Nucleated RBC 0.00 10^3/uL 10^3/uL (0-0.01) Immature Gran % 1.3 % H % (0.0-1.1) Immature Gran # 0.19 10^3/uL H 10^3/uL (0.00-0.10) PT 16.0 SEC H SEC (12.0-15.0) INR 1.26 H (0.83-1.16) APTT 32.1 SEC SEC (23.0-38.0) VBG Lactic Acid Sodium 129 mEq/L L mEq/L (135-145) Potassium 3.2 mEq/L L mEq/L (3.5-5.2) Chloride 95 mEq/L L mEq/L (97-110) Carbon Dioxide 22 mEq/l mEq/l (22-31) Anion Gap 12 mEq/L mEq/L (8-16) BUN 9 mg/dL mg/dL (7-23) Creatinine 0.4 mg/dL L mg/dL (0.6-1.0) Estimated GFR > 60 Glucose 153 mg/dL H mg/dL (70-100) Calcium 8.5 mg/dL mg/dL (8.5-10.4) Total Bilirubin 4.0 mg/dL H mg/dL (0.1-1.4) Conjugated Bilirubin 2.9 mg/dL H mg/dL (0.0-0.5) Unconjugated Bilirubin 1.1 mg/dL mg/dL (0.0-1.1) AST 35 IU/L IU/L (14-46) ALT 57 IU/L H IU/L (9-52) Alkaline Phosphatase 489 IU/L H IU/L (38-126) Total Protein 6.0 g/dL L g/dL (6.3-8.2) Albumin 3.0 g/dL L g/dL (3.5-5.0) 12/14/17 16:15 WBC RBC Hgb Hct MCV MCH MCHC RDW Plt Count MPV Neut % (Auto) Lymph % (Auto) Mcdonald % (Auto) Eos % (Auto) Baso % (Auto) Nucleat RBC Rel Count Absolute Neuts (auto) Absolute Lymphs (auto) Absolute Monos (auto) Absolute Eos (auto) Absolute Basos (auto) Absolute Nucleated RBC Immature Gran % Immature Gran # PT INR APTT VBG Lactic Acid 0.9 mmol/L mmol/L (0.7-2.1) Sodium Potassium Chloride Carbon Dioxide Anion Gap BUN Creatinine Estimated GFR Glucose Calcium Total Bilirubin Conjugated Bilirubin Unconjugated Bilirubin AST ALT Alkaline Phosphatase Total Protein Albumin Medications Given: Acetaminophen (Tylenol) 650 mg PO Q4HRS PRN PRN Reason: Pain, Mild/Fever, Can Take PO Stop: 06/12/18 17:27 Last Admin: 12/14/17 19:06 Dose: 650 mg Sodium Chloride (Ns) 1,000 mls @ 200 mls/hr IV CONT MARTIN Stop: 06/12/18 17:29 Last Admin: 12/14/17 20:58 Dose: 1,000 mls Lorazepam (Ativan) 0.5 mg PO BID MARTIN Stop: 06/12/18 20:59 Last Admin: 12/14/17 20:55 Dose: 0.5 mg Oxycodone HCl (Oxycontin) 10 mg PO BID MARTIN Stop: 12/24/17 20:59 Last Admin: 12/14/17 20:55 Dose: 10 mg Pantoprazole Sodium (Protonix) 40 mg PO HS MARTIN Stop: 06/12/18 20:59 Last Admin: 12/14/17 20:55 Dose: 40 mg Discontinued Medications Sodium Chloride (Ns) 1,000 mls @ 0 mls/hr IV EDNOW ONE; Wide Open PRN Reason: Protocol Stop: 12/14/17 16:08 Last Admin: 12/14/17 16:20 Dose: 1,000 mls Meropenem 1 gm/ Sterile Water 20 mls @ 240 mls/hr IV EDNOW ONE PRN Reason: Protocol Stop: 12/14/17 16:43 Last Admin: 12/14/17 17:04 Dose: 20 mls Sodium Chloride (Ns) 1,200 mls @ 2,400 mls/hr 30 ml/kg infuse over 30 min ( 1200 ml) IV EDNOW ONE PRN Reason: Protocol Stop: 12/14/17 17:08 Last Admin: 12/14/17 17:06 Dose: 1,200 mls Oxycodone HCl (Oxycontin) 10 mg PO EDNOW ONE Stop: 12/14/17 16:41 Last Admin: 12/14/17 17:04 Dose: 10 mg Departure - Departure Disposition: [facility] Inpatient Acute Clinical Impression: Cholangitis Fever Qualifiers: Fever type: unspecified Qualified Code(s): R50.9 - Fever, unspecified Condition: Good
[2017-12-14] MEDS ORDERED: NS 1,000 ML IV ONE (16:07)
[2017-12-14 16:31] LABS: PLATELET COUNT 285 10^3/uL (150-400)
[2017-12-14] MEDS ORDERED: NS 1,200 ML IV ONE (16:39)
[2017-12-14] MEDS ORDERED: MEROPENEM 1 GM in STERILE WATER INJ 20 ML IV ONE (16:39)
[2017-12-14 16:40] LABS: INR 1.26 (0.83-1.16)
[2017-12-14] MEDS ORDERED: ONDANSETRON 4 MG/2 ML VIAL IVP PRN (17:28)
[2017-12-14] MEDS ORDERED: HYDROmorphONE/DILAUDID 1 MG/ML INJ IVP PRN (17:28)
[2017-12-14] MEDS ORDERED: ONDANSETRON DISINTEGRATING 4 MG TAB PO PRN ×2 (17:28→17:30)
[2017-12-14] MEDS ORDERED: PERTZYE PO PRN ×2 (17:30→17:43)
[2017-12-14] MEDS ORDERED: LOPERAMIDE HCL 2 MG CAP PO PRN (17:30)
[2017-12-14] MEDS ORDERED: HYDROCODONE/APAP 5/325 TAB PO PRN (17:30)
[2017-12-14] MEDS ORDERED: POLYETHYLENE GLYCOL 3350 17 GM PKT PO PRN (17:30)
[2017-12-14] MEDS ORDERED: PROCHLORPERAZINE MALEATE 10 MG TAB PO PRN (17:30)
[2017-12-14] MEDS ORDERED: clonazePAM 0.5 MG TAB PO PRN (17:30)
--- NOTE | 2017-12-14 18:14 | GHP ---
[f rep st] HISTORY AND PHYSICAL DATE OF ADMISSION: 12/14/2017 The patient is a 67-year-old female with history of pancreatic cancer and biliary obstruction. She p resents today with fever. HISTORY OF PRESENT ILLNESS: She was admitted here in October when she had cholangitis. She had a l aparoscopic cholecystectomy with metal stent placed as well as removal of stone via ERCP. The metal stent was placed in her common bile duct by Dr. Montanez. She subsequently returned last week and had lópez t stent removed and there was attempted endoscopic biliary stent placed and it was unsuccessful. By Dr. Montanez. Placed a right-sided percutaneous hepatic drain, but the left side was unable to be accesse d because of tumor. There was plan for her to return, but she presents today with fever. She has had no cough, no sputum. She has some spasms on the right side where her tube enters her body. She has had no diarrhea. Sh minerva has had rosaura colored stools, but not dark urine. She has had no urinary symptoms. She remains somewhat active, ambulating around the house, going up and down stairs. She is not bed b ound. She has been eating okay. She has lost weight. She tolerates Boost or Ensure poorly. REVIEW OF SYSTEMS: Complete 10-point review of systems conducted, negative except as noted in the HP I. PAST MEDICAL HISTORY: 1. Pancreatic cancer. 2. Laparoscopic cholecystectomy. 3. History of choledocholithiasis. 4. Hypothyroidism. 5. She is receiving active chemotherapy. 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 She lives in the [facility]. No tobacco, alcohol. FAMILY HISTORY: Positive for pancreatic cancer in a great grandfather. CODE: The patient is full code. ALLERGIES: Penicillins, to which she gets a rash. MEDICATIONS: Clonazepam, hydrocodone/acetaminophen, levothyroxine, loperamide, lorazepam, omeprazole , ondansetron, OxyContin 10 b.i.d., and Pertzye. PHYSICAL EXAM: VITAL SIGNS: Presenting vitals, temp 38.5, blood pressure 125/69, pulse 110, now 105 . Breathing 17 times a minute, 94% on room air. GENERAL: Thin. Otherwise, no acute distress. JENN NT: Sclerae anicteric. Oropharynx clear. Mucous membranes moist. NECK: Supple. No lymphadenopat hy or JVD. LUNGS: Clear to auscultation bilaterally. HEART: S1, S2. Borderline tachycardic. ABD OMEN: Soft, moderately distended. It is tender but there is no rebound or guarding. The area aroun d her percutaneous biliary site is without erythema or fluctuance. Her port site is without erythema or fluctuance or undue tenderness. LOWER EXTREMITIES: No edema. Calves are nontender. SKIN: Wit hout rash. NEUROLOGIC: Grossly nonfocal. DIAGNOSTIC DATA: Chest x-ray interpreted by me shows right-sided port. Otherwise, no acute cardiopu lmonary disease. Patient is very thin. LABS: Sodium 129, potassium 3.2, chloride 95, bicarb 22, BUN 9, creatinine 0.4, glucose 153. Biliru bin is 4, down from 4.1 three days ago. AST is 35. ALT is 57. These are lower than they were at th e beginning of the month. Alkaline phosphatase is 49, which continues to trend down from a high of 1 391 on November 27. Albumin is low at 3.0. Venous lactate 0.9. INR is 1.26. White count 14.6, lef t shift. Hematocrit 29.4. Platelets are 285,000. I have discussed the case with Dr. Yusef Lawson and Dr. Denice Montanez. ASSESSMENT/PLAN: A 67-year-old female with likely left-sided cholangitis. 1. Cholangitis. Patient has biliary obstruction that is known from her recent imaging. Further shiva ging is probably not indicated at this point. We will start her on meropenem. Dr. Montanez is going to r e-attempt a percutaneous biliary drain on the left side tomorrow. 2. Sepsis. The patient has tachycardia and fever. She has normal venous lactate. We will volume r esuscitate. Start her on broad-spectrum antibiotics. 3. Cholangitis. As above, broad-spectrum antibiotics secondary to biliary obstruction. CAT scan ca n be withheld. 4. Pancreatic cancer. She has been actively getting chemotherapy, but I think it has been on hold. Oncology can be notified of her admission tomorrow, on the . 5. Prophylaxis. Pharmacologic prophylaxis indicated during this hospitalization. However, we will hold for now, given her upcoming procedures. 6. Pain. Will continue her OxyContin. DISPOSITION: Inpatient status. /[id number]/MODL
[2017-12-14] MEDS: ACETAMINOPHEN 325 MG TAB PO PRN (19:06)
[2017-12-14] MEDS: PANTOPRAZOLE SODIUM 40 MG TAB PO SCH (20:55)
[2017-12-14] MEDS: LORazepam 0.5 MG TAB PO SCH (20:55)
[2017-12-14] MEDS: NS 1,000 ML IV SCH (20:58)
[2017-12-14] MEDS ORDERED: NON-FORMULARY NEW DRUG (Omeprazole [Prilosec 20 Mg] 20 MG) PO SCH (21:00)
[2017-12-15] MEDS ORDERED: MEROPENEM 1 GM in STERILE WATER INJ 20 ML IV SCH (05:00)
[2017-12-15] MEDS: LEVOTHYROXINE 125 MCG TAB PO SCH (05:25)
[2017-12-15] MEDS: ACETAMINOPHEN 325 MG TAB PO PRN ×2 (05:25→21:31)
[2017-12-15 05:44] LABS: PLATELET COUNT 266 10^3/uL (150-400)
[2017-12-15 06:03] LABS: INR 1.41 (0.83-1.16); PROTIME(PATIENT) 17.4 SEC (12.0-15.0)
[2017-12-15] MEDS: NS 1,000 ML IV SCH ×2 (06:16→18:08)
[2017-12-15] MEDS: LORazepam 0.5 MG TAB PO SCH ×2 (08:04→21:32)
[2017-12-15] MEDS ORDERED: Herbals/Supplements -Info Only PO SCH (09:00)
[2017-12-15] MEDS ORDERED: HYDROmorphONE/DILAUDID 1 MG/ML INJ IVP PRN (10:13)
--- NOTE | 2017-12-15 10:34 | PDMN ---
Medical Necessity Medical necessity: est los>2mn for cholangitis w/ biliary obstruction, sepsis w/ tachycardia and fever, in setting of pancreatic cancer on chemo; admit for IV abx, IVF, re-attempt of perc biliary drain; per order and H&P 12/14/17
[2017-12-15] MEDS ORDERED: DEXMEDETOMIDINE/NS 4MCG/ML 50 ML BTL IV ONE (15:04)
[2017-12-15] MEDS ORDERED: GLUCAGON HCL 1 MG VIAL IVP PRN (15:08)
[2017-12-15] MEDS ORDERED: PROTAMINE SULFATE 50 MG/5 ML VIAL IVP PRN (15:08)
[2017-12-15] MEDS ORDERED: MEPERIDINE 25 MG/ML SYR IVP PRN (15:08)
[2017-12-15] MEDS ORDERED: FLUMAZENIL 0.5 MG/5 ML MDV IVP PRN (15:08)
[2017-12-15] MEDS ORDERED: fentaNYL 100 MCG/2 ML INJ IVP PRN (15:08)
[2017-12-15] MEDS ORDERED: MIDAZOLAM 2 MG/2 ML VIAL IVP PRN (15:08)
[2017-12-15] MEDS ORDERED: ALTEPLASE 2 MG VIAL IVP PRN (15:08)
[2017-12-15] MEDS ORDERED: NALOXONE HCL 0.4 MG/ML INJ IVP PRN (15:08)
[2017-12-15] MEDS ORDERED: HEPARIN 10,000 UNIT/10 ML MDV (1,000 UNIT/ML) IVP PRN (15:08)
[2017-12-15] MEDS: MEROPENEM 1 GM in STERILE WATER INJ 20 ML IV SCH ×2 (15:15→21:31)
[2017-12-15] MEDS ORDERED: NS 1,000 ML IV SCH (15:15)
--- NOTE | 2017-12-15 15:51 | PDPROPOC ---
Sedation Plan of Care Sedation Plan of Care: vital signs stable, mental status noted, patient educated of risks, benefits, alternatives, patient can tolerate sedation ASA Classification: ASA 3 Planned drugs: fentanyl, midazolam Mallampati Score: Class 1 Mallampati Reference Image: Patient passed 3-3-2 rule?: Yes
[2017-12-15] MEDS ORDERED: MEPERIDINE 25 MG/ML SYR ONE (16:11)
[2017-12-15] MEDS ORDERED: IOPAMIDOL (ISOVUE-300) 100 ML BTL ONE (16:41)
--- NOTE | 2017-12-15 17:43 | ASMTCMCOM ---
CM Note CM Note Notes: Pt here with fever, hx of pancreatic ca for which she is being treated. Pt lives at home with , dc needs unclear, PT/OT notes pending. Date Signed: 12/15/2017 05:42 PM Electronically Signed By:Nunu Torres RN
--- NOTE | 2017-12-15 17:50 | PDRADPN ---
Radiology Procedure Note Date of Procedure: 12/15/17 Radiologist: Denice Montanez Anesthesia: IV Sedation Pre-op Diagnosis: cholangitis Post-op Diagnosis: same Indication: bacteremia Procedure: LT PTC and internal drain placement, RT drain change Finding(s): LT perc access now into bowel. Inf/Abcess present in the surg proc area at time of surgery?: No EBL: Minimal Complications: none
--- NOTE | 2017-12-15 18:22 | GCON ---
[f rep st] CONSULTATION INFECTIOUS DISEASE CONSULTATION DATE OF CONSULTATION: 12/15/2017 REASON FOR CONSULTATION: Enterococcal bacteremia. PROVIDER REQUESTING CONSULTATION: Juan Flores MD HISTORY OF PRESENT ILLNESS: A 67-year-old female with pancreatic cancer and chronic biliary obstruct ion, with past episodes of cholangitis, who has had multiple procedures relating to stone removal and obstructive physiology relating to pancreatic cancer. Last procedure was performed 12/08/2017, and patient received perioperative levofloxacin. An external 8-Fijian right-sided biliary drain was plac ed to gravity. The patient was at home, in her usual state of health, and she reports monitoring her fever regularly. She developed a fever to 101, and subsequently associated confusion, and presented to the emergency room for further evaluation. She did not have associated abdominal pain, respirato ry symptoms or skin complaints. Today, she does report feeling some better after antibiotics were in itiated on admission. REVIEW OF SYSTEMS: A complete 10-point review of systems was performed and is negative except as men tioned in the HPI. She also notes early satiety and chronic abdominal distention. PAST MEDICAL HISTORY: Pancreatic cancer, laparoscopic cholecystectomy, choledocholithiasis, hypothyr oidism. SOCIAL HISTORY: She is a former microbiologist. No tobacco or alcohol. She is . FAMILY HISTORY: Positive for pancreatic cancer in a great grandfather. ALLERGIES: Penicillin. Patient got a rash in her late teens that was non severe, and she was not en tirely sure that the rash was truly related to penicillin. MEDICATIONS: Meropenem 1 g IV q.12, clonazepam, [place], Synthroid 125 mcg, Imodium, Ativan, Zofran, o xycodone, MiraLAX, Compazine. PHYSICAL EXAMINATION: VITAL SIGNS: T-max 39.4, T-current 37, blood pressure 129/73, respiratory rat e 16, saturation 95% on room air. GENERAL: This is a very pleasant woman who is nontoxic, lying in bed. HEENT: Pupils are reactive bilaterally. No conjunctival hemorrhages. Oropharynx with dry muc ous membranes. No oral ulcerations or exudate. Specifically, no thrush. NECK: Supple. CARDIOVASC ULAR: Regular rate with a 3/6 systolic murmur. CHEST: Clear to auscultation bilaterally. ABDOMEN: Mildly distended. Bowel sounds are present. She had a biliary drain on the right with bilious flu id in the bag. EXTREMITIES: No clubbing, cyanosis, or edema. No obvious muscle wasting. NEUROLOGI VERONICA: She is moving all 4 extremities equally. She has fluent speech and was oriented x4. LABS: 14.4, hematocrit 30, platelets of 266, neutrophils 84%. INR 1.4. Sodium 136, potassium 3.2, BUN 5, creatinine 0.7. Total bilirubin 3.2. Her bilirubin was last normal on 11/27/2017. AST 27, A LT 46, alkaline phosphatase 350, albumin 2.8. Blood cultures, 2 sets with Enterococcus, not VRE. ASSESSMENT AND PLAN: This is a very pleasant 67-year-old woman with pancreatic cancer with biliary o bstruction, with likely recurrent obstruction based on laboratory values and evidenced by bacteremia. Reviewed standard treatment for enterococcal bacteremia, typically with 2 weeks of intravenous anti biotics. Patient is considering or is planning on hospice at time of discharge, and discussed whethe r intravenous antibiotics are allowed with hospice, to be determined in the future. Further, could c onsider oral antibiotic therapy, particularly if enterococcus happens to be susceptible to levofloxac in and susceptibilities were added on in the lab. Further, based on patient's history, I do think it is safe to rechallenge the patient to a penicillin derivative if enterococcus is susceptible. For n ow, would continue meropenem with an increased dose of 1 g intravenous q.8. We will repeat blood cul tures on Monday to establish clearance of bacteremia. Thank you for this consultation. We will continue to follow on a daily basis. /[id number]/MODL
--- NOTE | 2017-12-15 19:55 | HOSPPROG ---
Hospitalist Progress Note Assessment/Plan: Assessment: 67-year-old female presents with enterococcal bacteremia in the setting of pancreatic cancer and recurrent cholangitis Plan: 1. Enterococcus bacteremia. Present on admission, secondary to recurrent cholangitis in the setting of biliary obstruction from stage IV pancreatic cancer -I do not believe this patient had sepsis on presentation, ruled out -discussed with Dr. Priscilla Foster, the plan is for IV antibiotics for 2 weeks from negative culture date and then patient can consider suppressive antibiotics for palliative/hospice -will repeat blood cultures in 24 hr -will continue on IV meropenem 2. Recurrent cholangitis. Resulting in right upper quadrant pain, fever, leukocytosis, bacteremia, patient has had indwelling source of infection on the left side of her obstructive metastatic pancreatic cancer in the biliary tree -performed a multi disciplinary family meeting to discuss diagnosis, prognosis, plan of care -this meeting included Dr. eDnice Montanez, Dr. Monica Ignacio (PCP), patient's and close friend -counseled the patient and her extensively regarding the potential options regarding source control, IV antibiotics, and definitive internalization of the biliary stents -the patient and her opted for interventional radiology procedure today by Dr. Denice Montanez, and I have discussed the postprocedure findings with Dr. Montanez -the left side of the obstruction was easily accessed and the stent was internalized with an external communication that can be capped once the patient' s infection is considered controlled -the right side of the obstruction with the current drain was replaced, unable to internalize, external communication bag continued -Dr. Denice Montanez feels like this procedure was the most definitive and would not recommend a second-stage as the left side has now been internalized and the right side is unable to be internalized -this should provide patient with optimal drainage palliatively and ongoing IV antibiotics are now the definitive course 3. Stage IV pancreatic cancer. After long consultation with patient, , primary care provider, the patient has decided that she would like to be do not hospitalize and transition home with hospice following this episode of care and infection stabilization -this was communicated to me by the patient's primary care provider and I will continue to facilitate dialogue with her during this hospitalization 4. Acute hyponatremia. Secondary to hypovolemia in the setting of infection, resolved with IV fluids 5. Chronic pain w/ continuous opiate dependency. Cont oxy SR, IR Diet. As tolerated by patient Prophylaxis. High risk patient, Lovenox 40 Code. Full at present, will continue to engage in goals of care discussions Disposition. Anticipated discharge on, requiring ongoing IV antibiotics and culture monitoring. Subjective: patient's pain better controlled s/p ativan/oxy IR Objective: Vital Signs Temp Pulse Resp BP Pulse Ox 37.3 C 103 H 16 134/71 H 91 L 12/15/17 19:45 12/15/17 19:45 12/15/17 19:45 12/15/17 19:45 12/15/17 19:45 Microbiology 12/14/17 16:45 Blood Panel (PCR) - Final Blood Enterococcus Species Laboratory Results 12/15/17 05:15 12/15/17 05:15 12/14/17 12/15/17 12/16/17 05:59 05:59 05:59 Intake Total 2300 1800 Output Total 200 100 Balance 2100 1700 PT 17.4 SEC (12.0-15.0) H 12/15/17 05:15 INR 1.41 (0.83-1.16) H 12/15/17 05:15 - Time Spent With Patient Time Spent with Patient: greater than 35 minutes Time Spent with Patient: Greater than 35 minutes spent on this patients care, greater than 50% of time spent counseling, educating, and coordinating care regarding the above mentioned plan. - Physical Exam Constitutional: no apparent distress, not in pain, No uncomfortable Cardiovascular: regular rate and rhythym, no murmur, rub, or gallop Respiratory: no respiratory distress, no rales or rhonchi, clear to auscultation Gastrointestinal: normoactive bowel sounds, tenderness (mid-epigastric area), No guarding, No rebound, No distension Neurologic: AAOx3 Psychiatric: not anxious, flat affect, other (thought blocking), No agitated ICD10 Worksheet Patient Problems: Problems Problem Status Onset Fever Acute Abnormal liver function test Acute Cholangitis Acute
[2017-12-15] MEDS: PANTOPRAZOLE SODIUM 40 MG TAB PO SCH (21:32)
[2017-12-16] MEDS: MEROPENEM 1 GM in STERILE WATER INJ 20 ML IV SCH ×3 (05:44→22:18)
[2017-12-16] MEDS: LEVOTHYROXINE 125 MCG TAB PO SCH (05:44)
[2017-12-16 06:03] LABS: PLATELET COUNT 288 10^3/uL (150-400)
[2017-12-16] MEDS: LORazepam 0.5 MG TAB PO SCH ×2 (09:58→20:26)
--- NOTE | 2017-12-16 13:13 | PCMIDPN ---
Assessment/Plan: Assessment: Ascending cholangitis in fever in setting of pancreatic cancer and obstruction. Biliary intervention seems to be working and bilirubin levels are falling. Patient is covered with meropenem monotherapy currently. White blood cell count somewhat increased today. This may be due to recent procedures. Will continue to follow this. Will also follow fever curve as patient is continuing to have fever. Will also follow the speciation and sensitivity of the Enterococcus. Plan: 1. Continue meropenem monotherapy for now. 2. Follow fever curve as well as CBC. 3. Follow clinical course. 12/16/17 18:00 Subjective: Patient resting in her hospital bed. Family is present in the room. She has no new complaint. Tolerating meropenem without issue. Objective: Meropenem # 3 Vital Signs Temp Pulse Resp BP Pulse Ox 36.6 C 90 16 134/72 H 95 12/16/17 11:16 12/16/17 11:16 12/16/17 11:16 12/16/17 11:16 12/16/17 11:16 Microbiology 12/14/17 16:45 Blood Panel (PCR) - Final Blood Enterococcus Species Laboratory Results 12/16/17 05:50 12/16/17 05:50 12/15/17 12/16/17 12/17/17 05:59 05:59 05:59 Intake Total 2300 2380 Output Total 200 300 Balance 2100 2079 - Physical Exam General Appearance: WD/WN, alert, no apparent distress, thin, non-toxic Respiratory: lungs clear, normal breath sounds, No respiratory distress Cardiac/Chest: regular rate, rhythm, No tachycardia Skin: normal color, warm/dry, No rash Neuro/Psych: alert, normal mood/affect, oriented x 3 ICD10 Worksheet Patient Problems: Problems Problem Status Onset Cholangitis Acute Fever Acute Abnormal liver function test Acute
--- NOTE | 2017-12-16 14:36 | SOAPPROG ---
DESTINY Progress Note Assessment/Plan: Assessment: Primary Oncology follow up - Metastatic pancreatic CA - patient has had progressive disease on neoadjuvant [place]/Abraxane and subsequent palliative therapy with FOLFIRINOX. She has biliary obstruction due to worsening tumor requiring percutaneous biliary drainage. She is now hospitalized with entrococcus bacteremia. Her body reserves are limited. Last week we had talked about the possibility of participation in a Phase I clinical trial, but at this point I think (and Cierra agrees) that best supportive care is most appropriate upon discharge. Plan: - Agree with Rx of bacteremia per ID consultation - Agree with plans for BSC/Hospice upon discharge I'll follow at a distance at this time. Please call with questions. Subjective: She feels better today than upon admission. Objective: Vital Signs Temp Pulse Resp BP Pulse Ox 36.6 C 90 16 134/72 H 95 12/16/17 11:16 12/16/17 11:16 12/16/17 11:16 12/16/17 11:16 12/16/17 11:16 Microbiology 12/14/17 16:45 Blood Panel (PCR) - Final Blood Enterococcus Species Laboratory Results 12/16/17 05:50 12/16/17 05:50 12/14/17 12/15/17 12/16/17 23:59 23:59 23:59 Intake Total 2300 1800 580 Output Total 0 300 200 Balance 2300 1500 380 PT 17.4 SEC (12.0-15.0) H 12/15/17 05:15 INR 1.41 (0.83-1.16) H 12/15/17 05:15 Physical Exam - Physical Exam General Appearance: thin Skin: pallor Neuro/Psych: alert, oriented x 3 ICD10 Worksheet Patient Problems: Problems Problem Status Onset Cholangitis Acute Fever Acute Abnormal liver function test Acute
--- NOTE | 2017-12-16 16:28 | ASMTCMCOM ---
CM Note CM Note Notes: PT/OT have seen and cleared. Anticipate d/c home with no CM needs when medically cleared. Date Signed: 12/16/2017 04:27 PM Electronically Signed By:DMITRIY Spaulding
--- NOTE | 2017-12-16 17:16 | HOSPPROG ---
Hospitalist Progress Note Assessment/Plan: Assessment: 67-year-old female presents with enterococcal bacteremia in the setting of obstructive stage IV pancreatic cancer and recurrent cholangitis Plan: 1. Enterococcus bacteremia. Present on admission, secondary to recurrent cholangitis in the setting of biliary obstruction from stage IV pancreatic cancer -discussed with Dr. Rice, updated him that procedure successful at decompressing L side of lesion, believe we have source control -will repeat blood cultures at ID discretion -will continue on IV meropenem -patient desires discharge s/p clearance of cx, will likely require 2 weeks of Abx from neg cx date 2. Recurrent cholangitis. Indwelling source of infection on the left side of her obstructive metastatic pancreatic cancer in the biliary tree, therapeutically treated w/ IR drainage of L side of lesion w/ indwelling stent placed but external drainage which can be capped when BCx clear -R side drain changed, no longer communicating w/ vein, Dr. Montanez does not believe that further internalization advisable -counseled patient and that we recommend ongoing Abx, checking BCx, monitoring drain output, and plan for hospice eval prior to discharge 3. Stage IV pancreatic cancer. D/w Dr. Bender, we agree that palliative/ hospice mgmt is appropriate for this patient moving forward given her advancing disease -cont to work w/ patient for optimal pain control 4. Acute hyponatremia. Secondary to hypovolemia in the setting of infection, resolved with IV fluids 5. Chronic pain w/ continuous opiate and benzodiazepine dependency. Cont oxy SR , IR, ativan Diet. As tolerated by patient Prophylaxis. High risk patient, Lovenox 40 Code. Full at present, will continue to engage in goals of care discussions Disposition. Anticipated discharge 12/17 (patient optimistic to discharge on this date), requiring ongoing IV antibiotics and culture monitoring. Subjective: pain well controlled Objective: Vital Signs Temp Pulse Resp BP Pulse Ox 36.8 C 105 H 16 132/75 H 95 12/16/17 15:38 12/16/17 15:38 12/16/17 15:38 12/16/17 15:38 12/16/17 15:38 Microbiology 12/14/17 16:45 Blood Panel (PCR) - Final Blood Enterococcus Species Laboratory Results 12/16/17 05:50 12/16/17 05:50 12/15/17 12/16/17 12/17/17 05:59 05:59 05:59 Intake Total 2300 2380 Output Total 200 300 300 Balance 2100 2080 -300 PT 17.4 SEC (12.0-15.0) H 12/15/17 05:15 INR 1.41 (0.83-1.16) H 12/15/17 05:15 - Time Spent With Patient Time Spent with Patient: greater than 35 minutes Time Spent with Patient: Greater than 35 minutes spent on this patients care, greater than 50% of time spent counseling, educating, and coordinating care regarding the above mentioned plan. - Physical Exam Constitutional: no apparent distress, not in pain, chronically ill appearing, No uncomfortable Cardiovascular: regular rate and rhythym, no murmur, rub, or gallop, No edema Respiratory: no respiratory distress, no rales or rhonchi, clear to auscultation Gastrointestinal: normoactive bowel sounds, tenderness (mid epigastric), No guarding, No distension Psychiatric: interacting appropriately, not anxious, not encephalopathic, thought process linear ICD10 Worksheet Patient Problems: Problems Problem Status Onset Cholangitis Acute Fever Acute Abnormal liver function test Acute
[2017-12-16] MEDS: PANTOPRAZOLE SODIUM 40 MG TAB PO SCH (20:26)
--- NOTE | 2017-12-17 03:51 | SOAPPROG ---
SOAP Progress Note Assessment/Plan: Assessment: 67 yo F w metastatic pancreatic ca and biliary obstruction s/p right-sided external biliary drainage on the 12/08/17 who presented w cholangitis/bacteremia 2 days ago and is now s/p left-sided internal/external biliary drainage catheter placement and right-sided external biliary drainage catheter exchange POD #1. Pt doing better this am. Afebrile, TB downtrending. Plan: 1. Biliary obstruction- s/p drainage (internal/external on the left, external on the right). Continue to trend TB. Capping trial of left-sided drain prior to discharge. No plan to reattempt ride-sided internalization given difficulties encountered, but may reconsider if the situation changes. D/w Dr. Montanez who is in agreement. Also discussed at length w pt and her . All questions answered. 2. Cholangitis/bacteremia- concur w hospitalist plan for antibiotics. 12/17/17 03:50 12/17/17 03:52 12/17/17 03:54 12/17/17 04:14 Subjective: Pt seen and examined at 1215 hrs on 12/16/17. Pt doing better this am. Abd is sore. Chills last night but none this am. Denies F/C, N/V. Objective: Vital Signs Temp Pulse Resp BP Pulse Ox 37.0 C 94 16 129/78 H 93 12/16/17 23:36 12/16/17 23:36 12/16/17 23:36 12/16/17 23:36 12/16/17 23:36 Microbiology 12/14/17 16:45 Blood Panel (PCR) - Final Blood Enterococcus Species Laboratory Results 12/16/17 05:50 12/16/17 05:50 12/15/17 12/16/17 12/17/17 05:59 05:59 05:59 Intake Total 2300 2380 800 Output Total 200 300 500 Balance 2100 2080 300 PT 17.4 SEC (12.0-15.0) H 12/15/17 05:15 INR 1.41 (0.83-1.16) H 12/15/17 05:15 Vitals: BP 134/72, HR 90, RR 16, O2 sat 95% @ 1116 hrs on 12/16/17 Gen: Awake, alert, NAD HEENT: Normocephalic, atraumatic, sclera mildly icteric, OP clear Heart: RRR Resp: Normal effort Abd: Right and left-sided biliary drains in place, dressings CDI, yellow-green bile in bags bilat, no significant blood or debris, abd ND, moderately TTP over epigastric region, near left drain site, no rebound, no guarding MSK: No CCE Psych: Normal affect ICD10 Worksheet Patient Problems: Problems Problem Status Onset Cholangitis Acute Fever Acute Abnormal liver function test Acute
[2017-12-17] MEDS: MEROPENEM 1 GM in STERILE WATER INJ 20 ML IV SCH ×3 (05:38→22:50)
[2017-12-17] MEDS: LEVOTHYROXINE 125 MCG TAB PO SCH (05:38)
[2017-12-17 05:56] LABS: PLATELET COUNT 335 10^3/uL (150-400)
[2017-12-17] MEDS: LORazepam 0.5 MG TAB PO SCH ×2 (09:08→20:50)
--- NOTE | 2017-12-17 18:06 | PCMIDPN ---
Assessment/Plan: Assessment: Ascending cholangitis in fever in setting of pancreatic cancer and obstruction. Patient seems to be clinically improving. Patient is covered with meropenem monotherapy currently. White blood cell count improved today. Fever curve improved. Enterococcal isolate sensitive to ampicillin as well as Levaquin. This gives us the option to use oral Levaquin to continue treatment Plan: 1. Continue meropenem monotherapy for now. 2. Follow fever curve as well as CBC. 3. Follow clinical course. Subjective: Patient is sitting up in bed. Denies any new complaint. Feeling much better than yesterday. No fevers. Objective: Meropenem #4 Vital Signs Temp Pulse Resp BP Pulse Ox 36.9 C 95 18 137/61 H 93 12/17/17 15:13 12/17/17 15:13 12/17/17 15:13 12/17/17 15:13 12/17/17 15:13 Microbiology 12/14/17 16:45 Blood Culture - Final Blood Enterococcus Faecalis Blood Panel (PCR) - Final Enterococcus Species Laboratory Results 12/17/17 05:40 12/17/17 05:40 12/16/17 12/17/17 12/18/17 05:59 05:59 05:59 Intake Total 2380 800 Output Total 300 676 100 Balance 2080 124 -100 - Physical Exam General Appearance: WD/WN, alert, no apparent distress, thin, non-toxic Respiratory: lungs clear, normal breath sounds, No respiratory distress Cardiac/Chest: regular rate, rhythm, No tachycardia Skin: normal color, warm/dry, No rash Neuro/Psych: alert, normal mood/affect, oriented x 3 ICD10 Worksheet Patient Problems: Problems Problem Status Onset Cholangitis Acute Fever Acute Abnormal liver function test Acute
--- NOTE | 2017-12-17 18:49 | HOSPPROG ---
Hospitalist Progress Note Assessment/Plan: Assessment: 67-year-old female presents with enterococcal bacteremia in the setting of obstructive stage IV pancreatic cancer and recurrent cholangitis Plan: 1. Enterococcus bacteremia. Present on admission, secondary to recurrent cholangitis in the setting of biliary obstruction from stage IV pancreatic cancer - isolate sensitive to amp and levo, so patient will likely be able to discharge home on levofloxacin - repeat BCx 12/17 pending, will likely be able to discharge when cleared - will continue on IV meropenem - patient desires discharge s/p clearance of cx, will likely require 2 weeks of Abx from neg cx date 2. Recurrent cholangitis. Indwelling source of infection on the left side of her obstructive metastatic pancreatic cancer in the biliary tree, therapeutically treated w/ IR drainage of L side of lesion w/ indwelling stent placed but external drainage - R side drain changed, no longer communicating w/ vein, Dr. Montanez does not believe that further internalization advisable - d/w Dr. Loera, he recommends capping L drain today and we will gauge whether she has any increased pain o/n, repeat Tbili/Alk Phos to ensure not rising and indicative of failed internal drain - counseled patient and that we recommend ongoing Abx, checking CMP in AM, monitoring for pain s/p capping, and plan for hospice eval prior to discharge (order placed) 3. Stage IV pancreatic cancer. Palliative/hospice mgmt is appropriate for this patient moving forward given her advancing disease - cont to work w/ patient for optimal pain control - left message for case mgmt to ensure hospice arrangements made for patient prior to discharge 4. Acute hyponatremia. Secondary to hypovolemia in the setting of infection, resolved with IV fluids 5. Chronic pain w/ continuous opiate and benzodiazepine dependency. Cont oxy SR , IR, ativan Diet. As tolerated by patient Prophylaxis. High risk patient, Lovenox 40 Code. Full at present, will continue to engage in goals of care discussions Disposition. Anticipated discharge 12/18 (patient optimistic to discharge on this date), requiring ongoing IV antibiotics and culture monitoring. Please make every effort to round on patient when (Juan) is present, per patient request, as she has difficulty recalling details from visits Please make every effort to round together in room w/ the other physicians on team (ID and Dr. Montanez), as this has been a more successful method for working with this patient and her Subjective: less pain in abd, localized to one spot in mid-epigastric area, responding well to current pain Rx, having BMs Objective: Vital Signs Temp Pulse Resp BP Pulse Ox 36.9 C 95 18 137/61 H 93 12/17/17 15:13 12/17/17 15:13 12/17/17 15:13 12/17/17 15:13 12/17/17 15:13 Microbiology 12/14/17 16:45 Blood Culture - Final Blood Enterococcus Faecalis Blood Panel (PCR) - Final Enterococcus Species Laboratory Results 12/17/17 05:40 12/17/17 05:40 12/16/17 12/17/17 12/18/17 05:59 05:59 05:59 Intake Total 2380 800 Output Total 300 676 100 Balance 2080 124 -100 PT 17.4 SEC (12.0-15.0) H 12/15/17 05:15 INR 1.41 (0.83-1.16) H 12/15/17 05:15 - Time Spent With Patient Time Spent with Patient: greater than 35 minutes Time Spent with Patient: Greater than 35 minutes spent on this patients care, greater than 50% of time spent counseling, educating, and coordinating care regarding the above mentioned plan. - Physical Exam Constitutional: no apparent distress, not in pain, chronically ill appearing, No uncomfortable Cardiovascular: regular rate and rhythym, no murmur, rub, or gallop Respiratory: no respiratory distress, no rales or rhonchi, clear to auscultation Gastrointestinal: normoactive bowel sounds, tenderness (mild in mid-epigastric area), other (two drains in place), No guarding, No distension Skin: No erythema Neurologic: AAOx3 Psychiatric: interacting appropriately, not anxious, not encephalopathic, thought process linear ICD10 Worksheet Patient Problems: Problems Problem Status Onset Fever Acute Abnormal liver function test Acute Cholangitis Acute
[2017-12-17] MEDS ORDERED: POTASSIUM CL 20 MEQ TAB PO ONE (18:59)
[2017-12-17] MEDS: PANTOPRAZOLE SODIUM 40 MG TAB PO SCH (20:50)
--- NOTE | 2017-12-17 23:21 | SOAPPROG ---
DESTINY Progress Note Assessment/Plan: Assessment: 67 yo F w metastatic pancreatic ca and biliary obstruction s/p right-sided external biliary drainage on the 12/08/17 who presented w cholangitis/bacteremia and is s/p left-sided internal/external biliary drainage catheter placement and right-sided external biliary drainage catheter exchange POD #2. Pt continues to improve. Pain improved. Afebrile. TB downtrending. Plan: 1. Biliary obstruction- s/p drainage (internal/external on the left, external on the right). Drain turned off this afternoon. Continue to trend TB. No plan to reattempt ride-sided internalization given difficulties encountered, but may reconsider if the situation changes. D/w Dr. Montanez who is in agreement. 2. Cholangitis/bacteremia- concur w hospitalist plan for antibiotics. 12/17/17 03:50 12/17/17 03:52 12/17/17 03:54 12/17/17 04:14 12/17/17 23:18 Objective: Vital Signs Temp Pulse Resp BP Pulse Ox 37.4 C 93 14 129/71 H 91 L 12/17/17 23:05 12/17/17 23:05 12/17/17 23:05 12/17/17 23:05 12/17/17 23:05 Microbiology 12/14/17 16:45 Blood Culture - Final Blood Enterococcus Faecalis Blood Panel (PCR) - Final Enterococcus Species Laboratory Results 12/17/17 05:40 12/17/17 05:40 12/16/17 12/17/17 12/18/17 05:59 05:59 05:59 Intake Total 2380 800 Output Total 300 676 100 Balance 2080 124 -100 PT 17.4 SEC (12.0-15.0) H 12/15/17 05:15 INR 1.41 (0.83-1.16) H 12/15/17 05:15 ICD10 Worksheet Patient Problems: Problems Problem Status Onset Cholangitis Acute Fever Acute Abnormal liver function test Acute
[2017-12-18] MEDS: LEVOTHYROXINE 125 MCG TAB PO SCH (05:40)
[2017-12-18] MEDS: MEROPENEM 1 GM in STERILE WATER INJ 20 ML IV SCH (05:40)
[2017-12-18 05:53] LABS: PLATELET COUNT 368 10^3/uL (150-400)
[2017-12-18 07:47] VITALS: BP 101/73; PULSE 102; RESP 16; TEMP 98.1; O2SAT 92
[2017-12-18] MEDS: LORazepam 0.5 MG TAB PO SCH (08:55)
--- NOTE | 2017-12-18 11:12 | HOSPPROG ---
Hospitalist Progress Note Assessment/Plan: 67 yo female with pancreatic cancer admitted with biliary obstruction and cholangitis s/p internal and external drains placed by IR with indeterminate response. Pt wishes to go home on hospice, does not want recurrent hospitalizations or procedures. Will d/c home with [facility] eval at their home today. Continue Levaquin 500 mg daily. Discussed with ID. Objective: Vital Signs Temp Pulse Resp BP Pulse Ox 36.7 C 102 H 16 101/73 92 12/18/17 07:44 12/18/17 07:44 12/18/17 07:44 12/18/17 07:44 12/18/17 07:44 Microbiology 12/14/17 16:45 Blood Culture - Final Blood Enterococcus Faecalis Blood Panel (PCR) - Final Enterococcus Species Laboratory Results 12/18/17 05:30 12/18/17 05:30 12/17/17 12/18/17 12/19/17 05:59 05:59 05:59 Intake Total 800 0 Output Total 676 101 75 Balance 124 -101 -75 PT 17.4 SEC (12.0-15.0) H 12/15/17 05:15 INR 1.41 (0.83-1.16) H 12/15/17 05:15 ICD10 Worksheet Patient Problems: Problems Problem Status Onset Cholangitis Acute Fever Acute Abnormal liver function test Acute
--- NOTE | 2017-12-18 14:38 | ASDISCHSUM ---
Discharge Information Plan Status:Hospice-Home Medically Cleared to Leave:12/17/2017 Discharge Date:12/18/2017 12:36 PM CM D/C Disposition: ADT D/C Disposition:Hospice Home Projected Discharge Date:12/18/2017 11:00 AM Transportation at D/C: Discharge Delay Reason: Follow-Up Date:12/18/2017 11:00 AM Discharge Slot: Final Diagnosis: Placement Information Referral Type:*Hospice Referral ID:[id number] Provider [facility] ([facility] Address 1:[address] Address 2: City:[place] Selection Factors: State:[place] Patient Contact Information Contact Name:JADYN Relationship: Address:[address] [place] [address] City:[place] Alternate Phone: State/Zip Code:[place] [address] Email: Financial Information Financial Class: Primary Plan Desc:MEDICARE INPATIENT Primary Plan Number:[id number] Secondary Plan Desc:[employer]/MDR SUPPLEMENT Secondary Plan Number:[id number] Assessment Information [facility] CM Progress Note CM Note CM Note Notes: Pt here with fever, hx of pancreatic ca for which she is being treated. Pt lives at home with , dc needs unclear, PT/OT notes pending. Date Signed: 12/15/2017 05:42 PM Electronically Signed By:Nunu Torres RN BC CM Progress Note CM Note CM Note Notes: PT/OT have seen and cleared. Anticipate d/c home with no CM needs when medically cleared. Date Signed: 12/16/2017 04:27 PM Electronically Signed By:DMITRIY Spaulding Case Management Discharge Plan Note Case Management Discharge Discharge Order Complete? Answers: Yes Patient to Obtain Answers: Independently Medications Transportation Arranged Answers: Family/Friends EMTALA Complete Answers: No Case Management Transport Answers: No Form Complete Faxed Final Orders Answers: Yes Agency/Facility Transfer Answers: Yes Report Printed & Faxed to Receiving Agency Family Notified Answers: No Discharge Comments Notes: CM spoke w/ Dr. Mike and Harleen RN regarding d/c POC. Pt is being discharged today. Referral made to [facility] hospice per the request of Dr. Mike and pt. CM spoke w/ [facility] and they will come do an evaluation at the pts home today between 3:30PM-4PM. [facility] is familiar with this pt. [facility] requested that a home eval is indicated in the d/c paperwork. CM communicated this w/ Dr. Mike. CM sent latest note to [facility]. CM met w/ pt and for dispo planning. Pt and is on board / [facility] hospice eval for today. CM available for changes. Plan: [facility] Date Signed: 12/18/2017 11:57 AM Electronically Signed By:SOMMER Larson Intervention Information Intervention Type:*IM-Signed Date of Service:12/18/2017 11:49 AM Patient Type:Inpatient Staff Member:Meghann Mendieta Hours: Discipline: Severity: Comment:
--- NOTE | 2017-12-18 22:45 | GDS ---
[f rep st] DISCHARGE SUMMARY DISCHARGE DIAGNOSES: 1. Stage IV pancreatic cancer. 2. Biliary obstruction secondary to pancreatic cancer. 3. Recurrent cholangitis. 4. Enterococcus bacteremia. 5. Hyponatremia. 6. Elevated liver function tests secondary to biliary obstruction. 7. Anemia. CONSULTANTS: 1. Dr. Norm Loera, Interventional Radiology. 2. Dr. Priscilla Foster, Infectious Disease. HISTORY: For details, please see the History and Physical dated December 14, 2017. In brief, Ms Cadena is a 67-year-old female with a history of stage IV pancreatic cancer and known biliary obstruction, w ho was admitted to the hospital in October and treated for cholangitis, and returns the day of admis shasha with fever. She was admitted to the hospital for further management. HOSPITAL COURSE: The patient was admitted to the Medical/Surgical unit. It was noted she had recent ly undergone laparoscopic cholecystectomy with common bile duct stenting and removal of a stone via [employer] in October . The stent was subsequently removed and an attempt was made to place a bi liary stent by IR, but this was unsuccessful. Instead, a right-sided percutaneous drain was placed, but they were unable to access the left side due to the tumor. Unfortunately, she returned to the spital for fever, likely due to recurrent biliary obstruction and cholangitis. The case was again re viewed with Interventional Radiology and a left percutaneous transhepatic cholangiogram was performed with left internal and external biliary drain placement and a right biliary drain catheter exchange on December 15, 2017. She was initially treated with meropenem. Her blood cultures grew Enterococcus faecalis on December 14. Repeat blood cultures were drawn on December 17, and remained negative at th e time of discharge. She had no recurrent fevers since the day of admission. Despite multiple times by Interventional Radiology to achieve adequate biliary drainage, she continues to have a rising alk keagan phosphatase and bilirubin this morning. I had a lengthy discussion with her and her , a nd she notes that she does not want to have recurrent or ongoing hospitalizations, nor does she want any further interventions. She is very clear that she does not want to in a hospital, and at thi s point, she favors quality of life over quantity. She wishes to discharge home on hospice and does not want to proceed with any further interventions. Her pain is currently controlled. [facility] is contacted and will visit with the patient in their home this afternoon. I discussed the case with Infectious Disease and will continue the patient on Levaquin 500 mg daily, noting this is not the optimal choice for ongoing treatment for enterococcal bacteremia. However, th is will allow the patient to go home on Hospice. Her enterococcus is indeed sensitive to Levaquin. I discussed with her the risk of tendinopathy, though this seems minimal given her poor functional st atus. We will plan to continue Levaquin for a prolonged course as it can have some prevention benefit in recurrent biliary infections. DISPOSITION: Patient is discharged home with [facility], in stable condition. DISCHARGE MEDICATIONS: Please see [employer] for completed updated outpatient medication list. New me dications on discharge include: Levaquin 500 mg p.o. daily, #30, no refills. OxyContin 10 mg p.o. t wice daily, #60, no refills. Ativan 0.5 mg p.o. q.6 hours p.r.n., #30, no refills. Zofran 4 mg p.o. q.4 hours p.r.n., #30, no refills. She will continue all of her outpatient medications as previousl y prescribed. /[id number]/MODL
== END 2017-12-18 12:36 | disposition hospice, home (50) | DRG 445 ==
LOC: F3E 18:42
PROVIDERS: ADMIT Internal Medicine; ATTEND Internal Medicine
DX: K83.0 Cholangitis (principal); R78.81 Bacteremia; B95.2 Enterococcus as the cause of diseases classified elsewhere; C78.7 Secondary malignant neoplasm of liver and intrahepatic bile duct; C25.0 Malignant neoplasm of head of pancreas; E87.1 Hypo-osmolality and hyponatremia; D63.0 Anemia in neoplastic disease; E03.9 Hypothyroidism, unspecified
CPT/HCPCS: 96374; 97161-GP; 97166-GO; 97535-GO; C1729; C1769; G8978-GP-CI; G8979-GP-CI; G8987-GO-CJ; G8988-GO-CI; G8989-GO-CI; J1642; J1644; J2185; J2250; J2310; J3010; Q9967

== ENCOUNTER 2018-01-01 10:12 | Day surgery (SDC) | payer OTHER, MEDICARE ==
[2018-01-01] MEDS ORDERED: ONDANSETRON 4 MG/2 ML VIAL ONE (10:32)
[2018-01-01] MEDS ORDERED: NALOXONE HCL 0.4 MG/ML INJ ONE (10:32)
[2018-01-01] MEDS ORDERED: FLUMAZENIL 0.5 MG/5 ML MDV IVP ONE (10:32)
[2018-01-01] MEDS ORDERED: MIDAZOLAM 2 MG/2 ML VIAL ONE (10:33)
[2018-01-01] MEDS ORDERED: fentaNYL 100 MCG/2 ML INJ ONE (10:33)
[2018-01-01] MEDS ORDERED: fentaNYL 100 MCG/2 ML INJ IVP PRN (10:37)
[2018-01-01] MEDS ORDERED: PROTAMINE SULFATE 50 MG/5 ML VIAL IVP PRN (10:37)
[2018-01-01] MEDS ORDERED: MIDAZOLAM 2 MG/2 ML VIAL IVP PRN (10:37)
[2018-01-01] MEDS ORDERED: HEPARIN 10,000 UNIT/10 ML MDV (1,000 UNIT/ML) IVP PRN (10:37)
[2018-01-01] MEDS ORDERED: MEPERIDINE 25 MG/ML SYR IVP PRN (10:37)
[2018-01-01] MEDS ORDERED: NALOXONE HCL 0.4 MG/ML INJ IVP PRN (10:37)
[2018-01-01] MEDS ORDERED: FLUMAZENIL 0.5 MG/5 ML MDV IVP PRN (10:37)
[2018-01-01] MEDS ORDERED: ALTEPLASE 2 MG VIAL IVP PRN (10:37)
[2018-01-01] MEDS ORDERED: GLUCAGON HCL 1 MG VIAL IVP PRN (10:37)
[2018-01-01] MEDS ORDERED: NS 1,000 ML IV SCH (10:45)
[2018-01-01 11:03] LABS: PLATELET COUNT 392 10^3/uL (150-400)
[2018-01-01 11:20] VITALS: PULSE 80; RESP 14; TEMP 211.8
[2018-01-01] MEDS ORDERED: IOPAMIDOL (ISOVUE-300) 100 ML BTL ONE (11:33)
--- NOTE | 2018-01-01 12:37 | PDGENHP ---
History & Physical Chief Complaint: leaking lt biliary drain History of Present Illness: drain was placed three weeks ago. intermittently leaking. Pertinent Past, Social, Family History: pancreatic ca. Bilateral biliary drains. Relevant Physical Exam: small amount of bile on dressing. Cardiorespiratory Assessment: rrr.cta
--- NOTE | 2018-01-01 12:38 | PDRADPN ---
Radiology Procedure Note Date of Procedure: 01/01/18 Radiologist: Denice Montanez Anesthesia: IV Sedation Pre-op Diagnosis: Leaking LT drain Post-op Diagnosis: obstructed LT drain Indication: leaking bile Procedure: drain check and change Finding(s): obstructed distal side holes Inf/Abcess present in the surg proc area at time of surgery?: No Complications: none
[2018-01-01] MEDS ORDERED: ONDANSETRON 4 MG/2 ML VIAL IVP ONE (12:45)
[2018-01-01 13:43] VITALS: BP 108/69; O2SAT 95
== END 2018-01-01 14:05 | disposition home or self-care (01) ==
LOC: FIMAGING 10:12
PROVIDERS: ATTEND Radiology Diagnostic Radiology
PROC: 0F2BX0Z Change Drainage Device in Hepatobiliary Duct, External Approach (ICD-10-PCS; principal; 2018-01-01 12:40)
PROC: BF101ZZ Fluoroscopy of Bile Ducts using Low Osmolar Contrast (ICD-10-PCS; principal; 2018-01-01 12:40)
DX: T85.590A Other mechanical complication of bile duct prosthesis, initial encounter (principal); K83.1 Obstruction of bile duct
CPT/HCPCS: 47536; 75984; 99152; C1729; C1769; J2250; J2310; J2405; J3010; Q9967

== ENCOUNTER 2018-01-16 22:48 | Emergency (ER) | payer OTHER, MEDICARE ==
[2018-01-16 22:54] VITALS: RESP 18
--- NOTE | 2018-01-16 22:55 | EDPHY ---
H & P Stated Complaint: Pancreatitis Ca, abd pain, nausea Time Seen by Provider: 01/16/18 22:54 HPI/ROS: HPI: This is a 67-year-old female who presents with Chief Complaint: Pancreatitis Ca, abd pain, nausea Location: Epigastric Quality: Pain Duration: 3-5 hours prior to arrival Signs and Symptoms: no fever, + nausea, + vomiting x 1, no hematemesis, no blood in stool, no abdominal bloating, no diarrhea, no back pain, no urinary symptoms, no vaginal bleeding/discharge, + indigestion, no chest pain, no shortness of breath Timing: Acute, intermittent episodes Severity: Moderate Context: Patient was diagnosed with pancreatic cancer approximately 1 year ago with 3 stent placements since that time, the last 1 occurring in October of 2017. The patient is currently on hospice care was seen by the hospice MD today. Approximately 3 hr after her doctor's visit, she started to experience epigastric pain that was moderate in nature nonradiating she describes as burning and indigestion like it was not relieved by OxyContin. Patient also reports nausea with 1 episode of vomiting in the emergency room of bile like liquid. Patient reports that she does not want any laboratory studies or imaging performed and is requesting only IV fluids IV pain medications and IV antiemetics. She tried Compazine prior to arrival without relief. Patient has a MediPort but has not been accessed since October 2017. Had a bowel movement prior to arrival that was somewhat loose in consistency. Modifying Factors: See above Comment: ROS: see HPI Constitutional: No fever, no chills, no weight loss Eyes: No blurred vision Respiratory: No shortness of breath, no cough Cardiovascular: No chest pain, no palpitations Gastrointestinal: + nausea, + vomiting, no diarrhea, no hematemesis, no blood in stool Genitourinary: No dysuria, no blood in urine Extremities: No myalgias, no edema Neurologic: No weakness, no numbness Skin: No rashes, no petechiae Hematologic: No bruising, no bleeding MEDICAL/SURGICAL/SOCIAL HISTORY: Medical/surgical history: Hypothyroidism, pancreatic CA, chemo 10/2017 Social history: retired. CONSTITUTIONAL: Chronically ill-appearing, cachectic, elderly white female, accompanied by family at bedside, awake and alert, no obvious distress HEENT: Atraumatic and normocephalic, PERRL, EOMI. Tympanic membranes clear. Oropharynx clear, no exudate and moist pink mucosa. Airway patent. No lymphadenopathy. No meningismus. Cardiovascular: Normal S1/S2, regular rate, regular rhythm, without murmur rub or gallop. PULMONARY/CHEST: Symmetrical and nontender. Clear to auscultation bilaterally. Good air movement. No accessory muscle usage. ABDOMEN: Soft, nondistended, mild epigastric tenderness, pancreatic drain present with green colored liquid in bag, no rebound, no guarding, no peritoneal signs, no masses or organomegaly. No CVAT. EXTREMITIES: 2/2 pulses, strength 5/5, no deformities, no clubbing, no cyanosis or edema. NEUROLOGICAL: no focal neuro deficits. GCS 15. SKIN: Warm and dry, no erythema. no rash. Good capillary refill. Source: Patient, Family Exam Limitations: No limitations - Personal History Current Tetanus Diphtheria and Acellular Pertussis (TDAP): Yes - Medical/Surgical History Hx Asthma: No Hx Chronic Respiratory Disease: No Hx Diabetes: No Hx Cardiac Disease: No Hx Renal Disease: No Hx Cirrhosis: No Hx Alcoholism: No Hx HIV/AIDS: No Hx Splenectomy or Spleen Trauma: No Other PMH: Hypothyroidism. pancreatic CA, chemo 10/2017 - Social History Smoking Status: Never smoked Constitutional: Initial Vital Signs Temperature (C) 36.7 C 01/16/18 22:50 Heart Rate 71 01/16/18 22:50 Respiratory Rate 18 01/16/18 22:50 Blood Pressure 139/71 H 01/16/18 22:50 O2 Sat (%) 100 01/16/18 22:50 O2 Delivery Mode Room Air Allergies/Adverse Reactions: Penicillins Allergy (Mild, Verified 01/16/18 22:50) Rash Home Medications: Medication Instructions Recorded Levothyroxine [Synthroid 125 mcg 125 mcg PO DAILY06 11/29/16 (*)] Ondansetron Odt [Zofran Odt 4 mg 8 mg PO DAILY PRN 07/17/17 (*)] Prochlorperazine Maleate 10 mg PO DAILY PRN 07/17/17 [Compazine 10mg (*)] clonazePAM [Klonopin (*)] 0.5 mg PO HS PRN 07/17/17 Loperamide HCl [Imodium 2 mg (*)] 2 mg PO PRN PRN 11/03/17 Omeprazole [Prilosec 20 mg] 20 mg PO HS 11/03/17 Pertzye Capsule 1 ea PO PRN PRN 11/03/17 Hydrocodone/Acetaminophen [[place] 1 each PO Q6 PRN 12/14/17 5/325 (*)] Polyethylene Glycol 3350 [Miralax 17 gm PO DAILY PRN 12/14/17 17 gm (*)] LORazepam [Ativan (*)] 0.5 mg PO Q6H PRN #30 tab 12/18/17 Ondansetron Odt [Zofran Odt 4 mg 4 mg PO Q4HRS PRN #30 tab 12/18/17 (*)] levOFLOXACIN [levAQUIN (*)] 500 mg PO DAILY #30 tab 12/18/17 oxyCODONE HCL [Oxycontin] 10 mg PO BID #60 tab.er.12h 12/18/17 Probiotic 01/01/18 Promethazine 25 mg Prepack #4 1 btl TAKEHOME Q4 PRN #1 btl 01/16/18 [Phenergan 25 mg Prepack #4] Promethazine HCl 25 mg PO Q4 PRN #12 tablet 01/16/18 Medical Decision Making ED Course/Re-evaluation: Patient is on hospice care and only asking for supportive measures. Patient adamantly declines any laboratory studies or imaging to be performed on her abdomen and pelvis. 1 L normal saline, IV promethazine, IV Dilaudid ordered Reassessed patient who is sleeping calmly. Significant other at bedside reports that she is significantly improved and wants to go home. They are requesting prescription for promethazine; Rx given This patient was seen under the supervision of my secondary supervising physician. I evaluated care for this patient independently. Discussed this patient with Dr. Darden who did not see the patient. Differential Diagnosis: Differential diagnosis includes but is not limited to perforation, obstruction, pancreatic duct malfunction, dehydration. - Data Points Medications Given: Discontinued Medications Hydromorphone HCl (Dilaudid) 1 mg IVP EDNOW ONE Stop: 01/16/18 23:11 Last Admin: 01/16/18 23:30 Dose: 1 mg Sodium Chloride (Ns) 1,000 mls @ 0 mls/hr IV EDNOW ONE; Wide Open PRN Reason: Protocol Stop: 01/16/18 23:11 Last Admin: 01/16/18 23:22 Dose: 1,000 mls Promethazine HCl (Phenergan) 12.5 mg IVP ONCE ONE Stop: 01/16/18 23:11 Last Admin: 01/16/18 23:23 Dose: 12.5 mg Departure - Departure Disposition: Home, Routine, Self-Care Clinical Impression: Hospice care patient Pancreatic cancer Qualifiers: Pancreatic malignancy location: unspecified Qualified Code(s): C25.9 - Malignant neoplasm of pancreas, unspecified Condition: Fair Instructions: Pancreatic Cancer (DC) Additional Instructions: Follow-up with Hospice provider in the next 1-2 days. Prescriptions: Promethazine 25 mg Prepack #4 [Phenergan 25 mg Prepack #4] 1 btl TAKEHOME Q4 PRN #1 btl PRN Reason: Nausea/Vomiting, Use 2nd Promethazine HCl 25 mg PO Q4 PRN #12 tablet PRN Reason: Nausea/Vomiting, Use 2nd
[2018-01-16] MEDS ORDERED: HYDROmorphONE/DILAUDID 1 MG/ML INJ IVP ONE (23:10)
[2018-01-16] MEDS ORDERED: PROMETHAZINE HCL 25 MG/ML INJ IVP ONE (23:10)
[2018-01-16] MEDS ORDERED: NS 1,000 ML IV ONE (23:10)
[2018-01-17] MEDS ORDERED: PROMETHAZINE 25 MG PREPACK #4 BTL TAKEHOME ONE (00:01)
[2018-01-17 00:33] VITALS: BP 133/70; PULSE 82; TEMP 98.2; O2SAT 95
== END 2018-01-17 00:32 | disposition home or self-care (01) ==
DX: C25.9 Malignant neoplasm of pancreas, unspecified (principal); E86.9 Volume depletion, unspecified
CPT/HCPCS: 96361; 96374; 96375; 99284; J1170; J2550